=== PATIENT | male | born 1960 | race Caucasian/White ===

== ENCOUNTER 2020-10-15 12:06 | Outpatient (REF) | payer OTHER, SELFPAY ==
[2020-10-15 12:49] LABS: Influenza A PCR NEGATIVE (Negative); Influenza B PCR NEGATIVE (Negative); Resp Syncy Virus RNA Qual PCR NEGATIVE (Negative); SARS COV2 PCR INHOUSE NEGATIVE (Negative)
== END 2020-10-15 12:07 | disposition home or self-care (01) ==
LOC: HO.LNP 12:06
PROVIDERS: Visit Provider Internal Medicine
DX: Z20.822 Contact with and (suspected) exposure to COVID-19 (principal)
CPT/HCPCS: 0241U

== ENCOUNTER 2020-12-19 07:27 | Outpatient (REF) | payer OTHER, SELFPAY ==
[2020-12-19 11:13] LABS: MANUAL DIFF FLAG NO
[2020-12-19 11:41] LABS: Basophils Absolute Auto 0.1 X10*3/uL (0.0-0.2); Basophils Percent Auto 1.5 % (0-2); Eosinophils Absolute Auto 0.3 X10*3/uL (0.0-0.4); Eosinophils Percent Auto 4.9 % (0-4); Hematocrit 48.6 % (42-52); Hemoglobin 16.7 g/dl (14.0-18.0); Imm Gran Abs Auto 0.01 X10*3/uL (0.00-0.03); Imm Gran Pct Auto 0.2 % (0.0-0.4); Lymphocytes Absolute Auto 1.9 X10*3/uL (1.2-4.9); Lymphocytes Percent Auto 31.5 % (20-40); Mean Corpuscular HGB Conc 34.4 g/dl (31.0-36.0); Mean Corpuscular Hemoglobin 32.1 pg (27.0-33.0); Mean Corpuscular Volume 93.3 fL (80-98); Mean Platelet Volume 10.7 fL (9.4-12.4); Monocytes Absolute Auto 0.5 X10*3/uL (0.1-1.2); Monocytes Percent Auto 8.3 % (2-11); Neutrophils Absolute Auto 3.2 X10*3/uL (2.0-8.3); Neutrophils Percent Auto 53.6 % (45-73); Platelet Count 203 X10*3/uL (160-400); Red Blood Count 5.21 X10*6/uL (4.60-5.80); Red Cell Distribution Width 11.8 % (11.0-16.0); White Blood Count 5.9 X10*3/uL (4.8-10.8)
[2020-12-19 13:00] LABS: Alanine Aminotransferase 25 U/L (0-40); Albumin Level 4.3 g/dL (3.5-5.0); Alkaline Phosphatase 46 U/L (39-117); Anion Gap 13 (12-20); Aspartate Amino Transferase 23 U/L (5-37); Bilirubin Total 0.9 mg/dL (0.0-1.0); Blood Urea Nitrogen 21 mg/dL (9-16); Calcium 9.2 mg/dL (8.4-10.2); Carbon Dioxide 26 mmol/L (22-29); Chloride 108 mmol/L (96-108); Cholesterol 196 mg/dL; Estimated Glomerular Filt Rate 57; Glucose Fasting 84 mg/dL (60-99); HDL Cholesterol 45 mg/dL; LDL Cholesterol Calculated 123 mg/dl; Potassium 4.2 mmol/L (3.3-5.1); Sodium 143 mmol/L (135-145); Total Protein 7.3 g/dL (6.5-8.0); Triglycerides 142 mg/dL
[2020-12-19 13:29] LABS: Prostate Specific Antigen 5.96 ng/mL (<0.05-4.0)
== END 2020-12-19 07:28 | disposition home or self-care (01) ==
LOC: HO.HMGCLDS 07:27
PROVIDERS: PCP Internal Medicine; Visit Provider Internal Medicine
DX: Z00.00 Encounter for general adult medical examination without abnormal findings (principal); Z12.5 Encounter for screening for malignant neoplasm of prostate
CPT/HCPCS: 36415; 80053; 80061; 84153; 85025

== ENCOUNTER 2020-12-24 15:55 | Outpatient (REF) | payer OTHER, SELFPAY ==
[2020-12-24 18:48] LABS: Free T4 (Free Thyroxine) 0.82 ng/dL (0.71-1.85); PSA,Total (Free>4and<10) 5.88 ng/mL (0.00-4.00); Thyroid Stimulating Hormone 2.96 uIU/mL (0.32-4.0)
[2020-12-26 11:55] LABS: Free Prostate Spec Ag 0.8 ng/mL; Percent Free Prostate Spec Ag 14 % (calc) (>25); Prostate Specific Ag Total 5.9 ng/mL (< OR = 4.0)
== END 2020-12-24 15:56 | disposition home or self-care (01) ==
LOC: HO.LAB 15:55
PROVIDERS: PCP Internal Medicine; Visit Provider Internal Medicine
DX: R97.20 Elevated prostate specific antigen [PSA] (principal); R94.6 Abnormal results of thyroid function studies; Z12.5 Encounter for screening for malignant neoplasm of prostate
CPT/HCPCS: 36415; 84153; 84154; 84439; 84443

== ENCOUNTER → 2021-01-15 15:19 | Outpatient (BNVA) | payer OTHER, SELFPAY | PROVIDERS: PCP Internal Medicine; Visit Provider Urology ==

== ENCOUNTER 2021-04-15 10:17 | Day surgery (SDC) | payer OTHER, SELFPAY ==
[2021-04-10 14:56] VITALS: BMI 27.8
--- NOTE | 2021-04-12 09:43 | P.CONAN_ITS ---
HPI - Anesthesia Eval Consult details Narrative: 61yo M for Colonoscopy [facility] Active Problems Active Problems: All Active Problems (Updated 04/10/21 @ 14:55 by Samantha Parkinson RN) BPH (benign prostatic hyperplasia) (Acute) Past Medical History Medical History BPH (benign prostatic hyperplasia) Elevated PSA GERD (gastroesophageal reflux disease) Seasonal allergies Surgical History Surgical History History of esophagogastroduodenoscopy (EGD) History of left inguinal hernia repair Hx of colonoscopy Hx of nasal polypectomy Social History Social History Patient Tobacco Use Status: Former Tobacco user Quit Date: 1982 Use of substances other than those prescribed or required for medical reasons: No Are you DNR?: No Advance Directives: No Advance Directives Information Provided: No Meds Allergies Allergy/AdvReac Type Severity Reaction Status Date / Time No Known Allergies Allergy Verified 04/10/21 14:55 Home Medications Medication Instructions Recorded Confirmed Last Taken Type aspirin 81 mg tablet,delayed 81 mg PO DAILY 04/10/21 04/15/21 04/05/21 History release Exam Exam Date and Time: April 12, 2021 0943 Height,Weight and Vital Signs: Height 5 ft 11 in Weight 90.718 kg Assessment and Plan Assessment Anesthesia Assessment: Chart Reviewed
[2021-04-15 11:33] VITALS: BP 166/99; PULSE 84; RESP 18; TEMP 36.8; O2SAT 99; BMI 27.8
[2021-04-15] MEDS: Lactated Ringers 1,000 ML 100 ML IVCONT (11:39)
--- NOTE | 2021-04-15 12:55 | PM.OP ---
Brief Operative Note Date of Service: 04/15/21 Pre-op diagnosis: Screening Post-op diagnosis: other (Colon polyp) Procedure: Colonoscopy to the cecum and TI with biopsy and removal of polyp Surgeon: Neto Fam Anesthesia: MAC Was an Learning Support Specialist used for this Procedure?: No Estimated blood loss (mL): 2.0 Pathology: other (A. Colon polyp at 50cm) Condition: stable Disposition: PACU
[2021-04-15 12:56] VITALS: BP 137/89; PULSE 76; RESP 16; TEMP 36.8; O2SAT 96
[2021-04-15 13:11] VITALS: BP 142/82; PULSE 70; RESP 18; O2SAT 98
--- NOTE | 2021-04-15 19:21 | OP_ITS ---
SURGEON: Neto Fam MD INDICATIONS: The patient presents for evaluation of colorectal cancer screening. Full consent has been obtained from him for this, including risks of bleeding and perforation. PREOPERATIVE DIAGNOSIS: Colorectal cancer screening. POSTOPERATIVE DIAGNOSIS: PROCEDURE PERFORMED: Colonoscopy to cecum and terminal ileum with biopsy and removal of polyp. ESTIMATED BLOOD LOSS: COMPLICATIONS: ANESTHESIA: Monitored anesthesia care. ASSISTANTS: SPECIMENS: POSTOPERATIVE DIAGNOSES: Colorectal cancer screening, small colon polyp, mild diverticulosis, and small internal hemorrhoids. DESCRIPTION OF PROCEDURE: The patient was placed in the left lateral decubitus position. The digital rectal exam revealed no abnormalities. The Olympus video pediatric colonoscope was entered into the rectum and advanced easily to the cecum. Once in the cecum, I did identify normal-appearing cecal pouch with appendiceal orifice and a normal-appearing ileocecal valve. The terminal ileum was cannulated and appeared normal. The scope was withdrawn back in the colon. The entire cecum and ileocecal valve appeared normal. The scope was slowly withdrawn assessing all mucosal surfaces carefully. Preparation was excellent. At 50 cm, was a flat approximately 3 or 4 mm polyp, which was biopsied and completely removed with cold biopsy forceps. I did not visualize any other polyps, colitis, nor angiodysplasia. There was a mild amount of sigmoid diverticulosis. In the rectum, scope was retroflexed visualizing small internal hemorrhoids, but no other pathology. The rectal mucosa appeared normal. Scope was straightened out and withdrawn from the patient. He tolerated the procedure well and was returned to the recovery area in stable condition. IMPRESSION: 1. Small colon polyp, status post biopsy and removal. 2. Mild diverticulosis. 3. Small internal hemorrhoids. PLAN: The results of biopsy will be checked. If this is a tubular adenoma, I would recommend a followup colonoscopy in 5 years. If it is only hyperplastic, I would recommend a followup colonoscopy in 10 years. He will otherwise see me on a p.r.n. basis. MD STUART Cardona/SANJU / [phone]
== END 2021-04-15 13:40 | disposition home or self-care (01) ==
PROVIDERS: PCP Internal Medicine; Visit Provider Internal Medicine
PROC: 0DJD8ZZ Inspection of Lower Intestinal Tract, Via Natural or Artificial Opening Endoscopic (ICD-10-PCS; CPT 45378; principal; 2021-04-15 11:40)
DX: Z12.11 Encounter for screening for malignant neoplasm of colon (principal); K51.40 Inflammatory polyps of colon without complications; K57.30 Diverticulosis of large intestine without perforation or abscess without bleeding; K64.8 Other hemorrhoids; K21.9 Gastro-esophageal reflux disease without esophagitis; N40.0 Benign prostatic hyperplasia without lower urinary tract symptoms; J30.2 Other seasonal allergic rhinitis; Z79.82 Long term (current) use of aspirin; Z79.899 Other long term (current) drug therapy; Z87.891 Personal history of nicotine dependence
CPT/HCPCS: 45380; 88305

== ENCOUNTER 2021-04-23 14:46 | Outpatient (REF) | payer OTHER, SELFPAY ==
[2021-04-23 17:34] LABS: Influenza A PCR NEGATIVE (Negative); Influenza B PCR NEGATIVE (Negative); Resp Syncy Virus RNA Qual PCR NEGATIVE (Negative); SARS COV2 PCR INHOUSE NEGATIVE (Negative)
== END 2021-04-23 14:47 | disposition home or self-care (01) ==
LOC: HO.LNP 14:46
PROVIDERS: Visit Provider Internal Medicine
DX: Z20.822 Contact with and (suspected) exposure to COVID-19 (principal)
CPT/HCPCS: 0241U

== ENCOUNTER 2021-05-10 15:57 | Outpatient (REF) | payer OTHER, SELFPAY ==
--- NOTE | ~2021-05-10 | XR_ITS ---
EXAMINATION: XR SINUSES CLINICAL INFORMATION: Headache. Rule out sinusitis. COMPARISON: None TECHNIQUE: 3 views of the sinuses were obtained. FINDINGS: Paranasal sinuses appear clear without air-fluid levels. No fractures are identified. No radiodense foreign bodies. XR/XR sinus min 3V IMPRESSION: Unremarkable examination.
== END 2021-05-10 15:58 | disposition home or self-care (01) ==
LOC: HO.HMGCX 15:57
PROVIDERS: PCP Internal Medicine; Visit Provider Internal Medicine
DX: R51.9 Headache, unspecified (principal)
CPT/HCPCS: 70220

== ENCOUNTER 2021-05-16 11:56 | Outpatient (REF) | payer OTHER, SELFPAY ==
[2021-05-16 14:51] LABS: PSA,Total (Free>4and<10) 3.79 ng/mL (0.00-4.00)
== END 2021-05-16 11:57 | disposition home or self-care (01) ==
LOC: HO.HMGCLDS 11:56
PROVIDERS: PCP Internal Medicine; Visit Provider Urology
DX: N40.1 Benign prostatic hyperplasia with lower urinary tract symptoms (principal); N13.8 Other obstructive and reflux uropathy; Z12.5 Encounter for screening for malignant neoplasm of prostate
CPT/HCPCS: 36415; 84153

== ENCOUNTER → 2021-05-21 16:22 | Outpatient (BNVA) | payer OTHER, SELFPAY | PROVIDERS: PCP Internal Medicine; Visit Provider Urology ==

== ENCOUNTER 2021-11-18 12:07 | Outpatient (REF) | payer OTHER, SELFPAY ==
[2021-11-18 14:22] LABS: Prostate Specific Antigen 2.74 ng/mL (<0.05-4.0)
== END 2021-11-18 12:08 | disposition home or self-care (01) ==
LOC: HO.HMGCLDS 12:07
PROVIDERS: Visit Provider Urology
DX: Z12.5 Encounter for screening for malignant neoplasm of prostate (principal); R97.20 Elevated prostate specific antigen [PSA]
CPT/HCPCS: 36415; 84153

== ENCOUNTER 2021-11-22 10:27 | Outpatient (REF) | payer OTHER, SELFPAY ==
[2021-11-22 11:27] LABS: MANUAL DIFF FLAG NO
[2021-11-22 11:29] LABS: Basophils Absolute Auto 0.1 X10*3/uL (0.0-0.2); Basophils Percent Auto 0.9 % (0-2); Eosinophils Absolute Auto 0.2 X10*3/uL (0.0-0.4); Hematocrit 48.1 % (42.0-52.0); Hemoglobin 16.6 g/dl (14.0-18.0); Imm Gran Abs Auto 0.02 X10*3/uL (0.00-0.03); Imm Gran Pct Auto 0.3 % (0.0-0.4); Lymphocytes Absolute Auto 1.5 X10*3/uL (1.2-4.9); Lymphocytes Percent Auto 19.4 % (20-40); Mean Corpuscular HGB Conc 34.5 g/dl (31.0-36.0); Mean Corpuscular Hemoglobin 31.7 pg (27.0-33.0); Mean Corpuscular Volume 91.8 fL (80.0-98.0); Mean Platelet Volume 10.3 fL (9.4-12.4); Monocytes Absolute Auto 0.8 X10*3/uL (0.1-1.2); Monocytes Percent Auto 10.5 % (2-11); Neutrophils Absolute Auto 5.1 x10*3/uL (2.0-8.3); Neutrophils Percent Auto 66.9 % (45-73); Platelet Count 194 X10*3/uL (160-400); Red Blood Count 5.24 X10*6/uL (4.60-5.80); Red Cell Distribution Width 11.9 % (11.0-16.0); White Blood Count 7.5 X10*3/uL (4.8-10.8)
[2021-11-22 12:24] LABS: Alanine Aminotransferase 18 U/L (0-40); Albumin Level 4.1 g/dL (3.5-5.0); Alkaline Phosphatase 45 U/L (39-117); Anion Gap 9 (12-20); Aspartate Amino Transferase 18 U/L (5-37); Bilirubin Total 1.1 mg/dL (0.0-1.0); Blood Urea Nitrogen 20 mg/dL (9-16); C Reactive Protein 0.48 mg/dL (< or = 0.50); Calcium 9.7 mg/dL (8.4-10.2); Carbon Dioxide 28 mmol/L (22-29); Chloride 105 mmol/L (96-108); Estimated Glomerular Filt Rate 59; Glucose Random 84 mg/dL (60-115); Sodium 138 mmol/L (135-145); Total Protein 7.1 g/dL (6.5-8.0); Uric Acid 7.2 mg/dL (3.4-7.0)
[2021-11-22 12:25] LABS: Erythrocyte Sedimentation Rate 2 MM/HR (0-15)
== END 2021-11-22 10:28 | disposition home or self-care (01) ==
LOC: HO.HMGCLDS 10:27
PROVIDERS: PCP Internal Medicine; Visit Provider Internal Medicine
DX: N40.0 Benign prostatic hyperplasia without lower urinary tract symptoms (principal); K57.90 Diverticulosis of intestine, part unspecified, without perforation or abscess without bleeding; M79.674 Pain in right toe(s)
CPT/HCPCS: 36415; 80053; 84550; 85025; 85652; 86140

== ENCOUNTER → 2021-11-26 08:26 | Outpatient (BNVA) | payer OTHER, SELFPAY | PROVIDERS: PCP Internal Medicine; Visit Provider Urology | DX: Z13.89 Encounter for screening for other disorder (principal) ==

== ENCOUNTER 2022-07-01 10:01 | Outpatient (REF) | payer OTHER, SELFPAY ==
[2022-07-01 11:34] LABS: Influenza A PCR NEGATIVE (Negative); Influenza B PCR NEGATIVE (Negative); Resp Syncy Virus RNA Qual PCR NEGATIVE (Negative); SARS COV2 PCR INHOUSE NEGATIVE (Negative)
== END 2022-07-01 10:02 | disposition home or self-care (01) ==
LOC: HO.10HDLR 10:01
PROVIDERS: Visit Provider Internal Medicine
DX: Z20.822 Contact with and (suspected) exposure to COVID-19 (principal); R05.9 Cough, unspecified; J02.9 Acute pharyngitis, unspecified
CPT/HCPCS: 0241U

== ENCOUNTER 2022-08-14 14:14 | Outpatient (REF) | payer OTHER, SELFPAY ==
[2022-08-14 15:02] LABS: Influenza A PCR NEGATIVE (Negative); Influenza B PCR NEGATIVE (Negative); Resp Syncy Virus RNA Qual PCR NEGATIVE (Negative); SARS COV2 PCR INHOUSE NEGATIVE (Negative)
== END 2022-08-14 14:15 | disposition home or self-care (01) ==
LOC: HO.LNP 14:14
PROVIDERS: Visit Provider Internal Medicine
DX: Z20.822 Contact with and (suspected) exposure to COVID-19 (principal); J02.9 Acute pharyngitis, unspecified
CPT/HCPCS: 0241U

== ENCOUNTER 2022-11-20 11:58 | Outpatient (REF) | payer OTHER, SELFPAY ==
[2022-11-20 15:03] LABS: Prostate Specific Antigen 8.56 ng/mL (<0.05-4.0)
== END 2022-11-20 11:59 | disposition home or self-care (01) ==
LOC: HO.HMGCLDS 11:58
PROVIDERS: PCP Internal Medicine; Visit Provider Urology
DX: Z12.5 Encounter for screening for malignant neoplasm of prostate (principal); N40.1 Benign prostatic hyperplasia with lower urinary tract symptoms; N13.8 Other obstructive and reflux uropathy
CPT/HCPCS: 36415; 84153

== ENCOUNTER 2022-11-24 06:59 | Outpatient (REF) | payer OTHER, SELFPAY ==
[2022-11-24 11:21] LABS: MANUAL DIFF FLAG NO
[2022-11-24 11:23] LABS: Appearance Urine Clear; Color Urine Yellow; Glucose Urine UA Negative (Negative); Leukocyte Esterase Urine Negative (Negative); Nitrite Urine Negative (Negative); Specific Gravity - Urine 1.015 (1.005-1.025); Urine Blood Negative (Negative); Urine Ketones Negative (Negative); Urine Protein Negative (Neg-Trace)
[2022-11-24 11:48] LABS: Basophils Absolute Auto 0.1 X10*3/uL (0.0-0.2); Basophils Percent Auto 1.6 % (0-2); Eosinophils Absolute Auto 0.2 X10*3/uL (0.0-0.4); Eosinophils Percent Auto 3.9 % (0-4); Hematocrit 50.6 % (42.0-52.0); Hemoglobin 17.4 g/dl (14.0-18.0); Imm Gran Abs Auto 0.02 X10*3/uL (0.00-0.03); Imm Gran Pct Auto 0.3 % (0.0-0.4); Lymphocytes Absolute Auto 1.8 X10*3/uL (1.2-4.9); Lymphocytes Percent Auto 29.6 % (20-40); Mean Corpuscular HGB Conc 34.4 g/dl (31.0-36.0); Mean Corpuscular Hemoglobin 32.2 pg (27.0-33.0); Mean Corpuscular Volume 93.5 fL (80.0-98.0); Mean Platelet Volume 11.1 fL (9.4-12.4); Monocytes Absolute Auto 0.5 X10*3/uL (0.1-1.2); Monocytes Percent Auto 8.6 % (2-11); Neutrophils Absolute Auto 3.5 x10*3/uL (2.0-8.3); Platelet Count 197 X10*3/uL (160-400); Red Blood Count 5.41 X10*6/uL (4.60-5.80); White Blood Count 6.2 X10*3/uL (4.8-10.8)
[2022-11-24 12:04] LABS: Alanine Aminotransferase 23 U/L (0-40); Albumin Level 4.2 g/dL (3.5-5.0); Alkaline Phosphatase 44 U/L (39-117); Anion Gap 12 (12-20); Aspartate Amino Transferase 22 U/L (5-37); Bilirubin Total 1.6 mg/dL (0.0-1.0); Blood Urea Nitrogen 21 mg/dL (9-16); Calcium 9.6 mg/dL (8.4-10.2); Carbon Dioxide 28 mmol/L (22-29); Chloride 107 mmol/L (96-108); Cholesterol 189 mg/dL; Estimated Glomerular Filt Rate 56; Glucose Fasting 98 mg/dL (60-99); HDL Cholesterol 44 mg/dL; LDL Cholesterol Calculated 120 mg/dl; Potassium 4.8 mmol/L (3.3-5.1); Sodium 142 mmol/L (135-145); Total Protein 6.8 g/dL (6.5-8.0); Triglycerides 126 mg/dL
[2022-11-24 12:12] LABS: Prostate Specific Antigen Scr 10.53 ng/mL (<0.05-4.0)
== END 2022-11-24 07:00 | disposition home or self-care (01) ==
LOC: HO.HMGCLDS 06:59
PROVIDERS: PCP Internal Medicine; Visit Provider Internal Medicine
DX: Z00.00 Encounter for general adult medical examination without abnormal findings (principal); Z12.5 Encounter for screening for malignant neoplasm of prostate
CPT/HCPCS: 36415; 80053; 80061; 81003; 84153; 85025

== ENCOUNTER 2022-11-24 23:51 | Emergency (ER) | payer OTHER, SELFPAY ==
[2022-11-25 00:05] VITALS: BP 159/112; PULSE 115; RESP 18; TEMP 36.8; O2SAT 97; BMI 25.7
[2022-11-25 01:01] LABS: Appearance Urine Clear; Color Urine Yellow; Glucose Urine UA Negative (Negative); Leukocyte Esterase Urine Negative (Negative); Nitrite Urine Negative (Negative); PH 5.5 (5.0-9.0); Specific Gravity - Urine <= 1.005 (1.005-1.025); UMIC TRIGGER UACC YES; Urine Blood Large (3+) (Negative); Urine Ketones Negative (Negative); Urine Protein Negative (Neg-Trace)
--- NOTE | 2022-11-25 01:03 | PC.NURSE ---
pt a&o, no sob or chest pain, pt reports unable to void, bladder scan was greater than 600, bustillo placed and draining clear yellow urine with a few small blood clots.
[2022-11-25 01:06] LABS: Bacteria Urine None Seen (None Seen); Hyaline Casts Urine 0-2 /LPF (0-2); Squamous Epithelial Cell Urine 0-2 /HPF (0-2); WBC Urine 0-5 /HPF (0-5)
[2022-11-25 01:15] LABS: Hematocrit 46.4 % (42.0-52.0); Hemoglobin 16.4 g/dl (14.0-18.0); Mean Corpuscular HGB Conc 35.3 g/dl (31.0-36.0); Mean Corpuscular Hemoglobin 31.5 pg (27.0-33.0); Mean Corpuscular Volume 89.1 fL (80.0-98.0); Mean Platelet Volume 10.1 fL (9.4-12.4); Platelet Count 186 X10*3/uL (160-400); Red Blood Count 5.21 X10*6/uL (4.60-5.80); Red Cell Distribution Width 11.9 % (11.0-16.0); White Blood Count 5.4 X10*3/uL (4.8-10.8)
[2022-11-25 01:31] LABS: Alanine Aminotransferase 22 U/L (0-40); Albumin Level 4.1 g/dL (3.5-5.0); Alkaline Phosphatase 44 U/L (39-117); Anion Gap 17 (12-20); Aspartate Amino Transferase 22 U/L (5-37); Bilirubin Total 0.8 mg/dL (0.0-1.0); Blood Urea Nitrogen 18 mg/dL (9-16); Carbon Dioxide 21 mmol/L (22-29); Chloride 108 mmol/L (96-108); Creatinine Clr Calc Pharmacy 66.9; Estimated Glomerular Filt Rate 59; Glucose Random 103 mg/dL (60-115); Lipase 59 U/L (8-78); Potassium 4.1 mmol/L (3.3-5.1); Sodium 142 mmol/L (135-145); Total Protein 6.8 g/dL (6.5-8.0)
--- NOTE | 2022-11-25 01:32 | PC.NURSE ---
pt had 1,000ml of urine out put
[2022-11-25 01:42] VITALS: BP 136/80; PULSE 77; RESP 19; TEMP 36.6; O2SAT 97
--- NOTE | 2022-11-25 03:34 | PC.NURSE ---
pt resting in bed no sign of distress. Waiting to be seen, provider is bray.
[2022-11-25 03:39] VITALS: BP 122/74; PULSE 74; RESP 17; TEMP 36.8; O2SAT 97
--- NOTE | 2022-11-25 03:46 | ED.MALEGU ---
HPI - Male Genitourinary General Chief complaint: Urogenital-Male Stated complaint: ? uti abd pain Time Seen by Provider: 11/25/22 03:46 Source: patient Mode of arrival: ambulatory Limitations: no limitations History of Present Illness HPI Narrative: 5 days ago patient noticed difficulty urination with burning. denies abdominal distention. Tonight he could not urinate. Patient took a cipro today. Patient has been taking claritin for nasal congestion. Onset (ago): day(s) Duration: constant Severity: moderate Related Data Home Medications Medication Instructions Recorded Confirmed aspirin 81 mg tablet,delayed 81 mg PO DAILY 04/10/21 04/15/21 release Previous Rx's Medication Instructions Recorded finasteride 5 mg tablet 5 mg PO DAILY 90 days #90 tabs 05/21/22 Allergies Allergy/AdvReac Type Severity Reaction Status Date / Time No Known Allergies Allergy Verified 11/26/21 08:27 Review of Systems Review of Systems: Yes all other systems are reviewed and are negative Genitourinary: Comments: dysuria, unable to urinate Neurologic: Denies Sensory deficit (Neuro) [facility] Past Medical History Medical History BPH (benign prostatic hyperplasia) Elevated PSA GERD (gastroesophageal reflux disease) Seasonal allergies Surgical History History of esophagogastroduodenoscopy (EGD) History of left inguinal hernia repair Hx of colonoscopy Hx of nasal polypectomy Social History Social History Patient Tobacco Use Status: Former Tobacco user Quit Date: 1982 Use of substances other than those prescribed or required for medical reasons: No Advance Directives: No Advance Directives Information Provided: Yes Physical Exam Vital Signs: Vital Signs: Last Vital Signs Temp 98.3 F 11/25/22 03:39 Pulse 74 11/25/22 03:39 Resp 17 11/25/22 03:39 BP 122/74 11/25/22 03:39 Pulse Ox 97 11/25/22 03:39 O2 Del Method Room Air 11/25/22 03:39 BMI result Body Mass Index 25.7 Const: General: healthy appearing Nutritional Appearance: average body habitus Orientation/consciousness: oriented to person and patient oriented x3 Limitations: no limitations HEENT: Head: Yes normal to inspection Ears: external ears normal General nose exam: Normal external nose present Mouth: Normal oral and palatal mucosa present and oropharynx normal Throat: Yes posterior oropharynx normal Eyes: General: appearance normal, both eyes and all related structures Neck: Other: supple Neck: Yes normal visual inspection Chest: Chest palpation & inspection: normal inspection of the chest Resp: Auscultation: clear to auscultation bilaterally Cardio: Jugular venous distension: no JVD Rate: regular rate Rhythm: regular rhythm Heart sounds: S1 normal heart sound present and S2 normal heart sound present GI: Inspection: Yes normal to inspection Palpation (GI): Soft to palpation, nontender and No hepatosplenomegaly present Auscultation: normal bowel sounds : General: Yes no CVA tenderness Back/Spine/Pelvis: Back: no CVA tenderness Skin: General skin exam: no rashes or lesions noted Neuro: General: oriented to person and patient oriented x3 Cranial nerves: Yes CN's II-XII intact bilaterally Motor exam (neuro): 5/5 motor strength present throughout Sensory Exam: No Sensory deficit (Neuro) Extrem: General: Yes normal to inspection Psych: Appearance: grossly normal Course Reevaluation(s) Reevaluation #1: Patient put out 1400cc, no evidence of UTI or renal failure. Will have patient continue the cipro as he now has a bustillo in. In addition will have the patient take flonase instead of claritin Time: 03:58 Medical Decision Making Differential Diagnosis Differential Diagnoses: The differential diagnosis associated with the presentation includes (urinary obstruction, UTI, renal failure) Lab Data MDM Lab Attestation statement: I reviewed the patient's lab results. (BUN and creatinine at baseline) 11/25/22 01:05 11/25/22 01:05 Labs: Lab Results 11/25/22 11/25/22 11/25/22 Range/Units 00:54 01:05 01:05 WBC 5.4 (4.8-10.8) X10*3/uL RBC 5.21 (4.60-5.80) X10*6/uL Hgb 16.4 (14.0-18.0) g/dl Hct 46.4 (42.0-52.0) % MCV 89.1 (80.0-98.0) fL MCH 31.5 (27.0-33.0) pg MCHC 35.3 (31.0-36.0) g/dl RDW 11.9 (11.0-16.0) % Plt Count 186 (160-400) X10*3/uL MPV 10.1 (9.4-12.4) fL Absolute Nucleated RBC 0.000 (0.0-0.012) X10*3/uL Nucleated RBC % (auto) 0.0 (0.0-0.2) /100WBC Sodium 142 (135-145) mmol/L Potassium 4.1 (3.3-5.1) mmol/L Chloride 108 (96-108) mmol/L Carbon Dioxide 21 L (22-29) mmol/L Anion Gap 17 (12-20) BUN 18 H (9-16) mg/dL Creatinine 1.24 (0.5-1.4) mg/dL Estim Creat Clear Calc 66.9 Estimated GFR 59 Random Glucose 103 (60-115) mg/dL Calcium 9.0 D (8.4-10.2) mg/dL Total Bilirubin 0.8 (0.0-1.0) mg/dL AST 22 (5-37) U/L ALT 22 (0-40) U/L Alkaline Phosphatase 44 (39-117) U/L Total Protein 6.8 (6.5-8.0) g/dL Albumin 4.1 (3.5-5.0) g/dL Lipase 59 (8-78) U/L Urine Color Yellow Urine Appearance Clear Urine pH 5.5 (5.0-9.0) Ur Specific [place] <= 1.005 (1.005-1.025) Urine Protein Negative (Neg-Trace) mg/dL Urine Glucose (UA) Negative (Negative) mg/dL Urine Ketones Negative (Negative) mg/dL Urine Blood Large (3+) H (Negative) Urine Nitrite Negative (Negative) Ur Leukocyte Esterase Negative (Negative) Urine RBC 11-20 H (0-2) /HPF Urine WBC 0-5 (0-5) /HPF Ur Squamous Epith Cells 0-2 (0-2) /HPF Urine Bacteria None Seen (None Seen) Hyaline Casts 0-2 (0-2) /LPF Independent Historian Clinical information obtained from an independent historian. History obtained from or confirmed by: Spouse Chronic Conditions Patient?s care impacted by: Other (benign prostate hypertrophy) Discharge Plan Discharge Clinical Impression: Acute urinary obstruction Patient Disposition: Home, Self-Care Instructions: Bustillo Catheter Placement and Care (ED) Prescriptions: No Action finasteride 5 mg tablet 5 mg PO DAILY 90 Days Qty: 90 1RF aspirin [Aspir-81] 81 mg Tablet,Delayed Release (Dr/Ec) 81 mg PO DAILY Referrals: Doug Macias MD [Physician] - 5 days
--- NOTE | 2022-11-25 03:53 | PC.NURSE ---
provider into assess pt and discuss plan of care.
--- NOTE | 2022-11-25 04:24 | PC.NURSE ---
Reviewed discharge instructions with pt, pt verbalized understanding, Education on bustillo bag.Will continue to monitor.
== END 2022-11-25 04:39 | disposition home or self-care (01) ==
PROVIDERS: Emergency Provider Emergency Medicine; PCP Internal Medicine
DX: N13.9 Obstructive and reflux uropathy, unspecified (principal); R33.9 Retention of urine, unspecified; Z79.899 Other long term (current) drug therapy
CPT/HCPCS: 36415; 51702; 51798; 80053; 81001; 81003; 83690; 85027; 99284; 99285

== ENCOUNTER → 2022-12-17 13:53 | Outpatient (BNVA) | payer OTHER, SELFPAY | PROVIDERS: PCP Internal Medicine; Visit Provider Urology | DX: N40.0 Benign prostatic hyperplasia without lower urinary tract symptoms (principal); R97.20 Elevated prostate specific antigen [PSA]; R33.9 Retention of urine, unspecified; Z79.82 Long term (current) use of aspirin; Z79.899 Other long term (current) drug therapy | CPT/HCPCS: 52000 ==

== ENCOUNTER 2023-02-21 07:03 | Outpatient (REF) | payer OTHER, SELFPAY ==
[2023-02-21 12:14] LABS: Prostate Specific Antigen 4.47 ng/mL (<0.05-4.0)
[2023-02-21 12:16] LABS: PSA,Total (Free>4and<10) 4.28 ng/mL (0.00-4.00)
[2023-02-25 10:59] LABS: Free Prostate Spec Ag 0.5 ng/mL; Percent Free Prostate Spec Ag 12 % (calc) (>25); Prostate Specific Ag Total 4.3 ng/mL (< OR = 4.0)
== END 2023-02-21 07:04 | disposition home or self-care (01) ==
LOC: HO.HMGCLDS 07:03
PROVIDERS: PCP Internal Medicine; Visit Provider Internal Medicine
DX: R97.20 Elevated prostate specific antigen [PSA] (principal); Z12.5 Encounter for screening for malignant neoplasm of prostate
CPT/HCPCS: 36415; 84153; 84154

== ENCOUNTER 2023-02-24 10:41 | Outpatient (AMB) | payer OTHER, SELFPAY ==
--- NOTE | 2023-02-24 10:42 | MHC.OFFVIS ---
Intake Intake Visit Reasons: H&P (greenlight) Intake Note: Patient is present for Telephone Urology Med: Finasteride, Terazosin Antibiotic Allergy: None Blood Thinner: Aspirin (Will stop prior of surgery) Allergies No Known Allergies Allergy (Verified 02/24/23 10:44) HPI HPI Comments History of Present Illness Details Kameron is a very pleasant male. He is a patient of Dr. Joyce. He is seen for the following urologic condition - elevated PSA - episode of urinary retention Telemedicine Evaluation 15 min Consultation [employer] Video attempted Discussed GreenLight laser surgery Questions answered regarding anesthetic, catheter usage, postprocedure medications Elevated PSA/LUTS Episode of urinary retention October 2022 Found to have elevated PSA on regular follow-up with PCP Initial therapy trial of finasteride Improvement of frequency and weakness of stream with finasteride Showed significant decline in PSA level PSA - 12/21 5.9, 05/23 3.8, 11/22 2.7, 11/23 10.53 Plan to continue with interval surveillance - GreenLight laser prostatectomy [facility] Medical History BPH (benign prostatic hyperplasia) Elevated PSA GERD (gastroesophageal reflux disease) Seasonal allergies Surgical History History of esophagogastroduodenoscopy (EGD) History of left inguinal hernia repair Hx of colonoscopy Hx of nasal polypectomy Social History Patient Tobacco Use Status: Former Tobacco user Quit Date: 1982 Review of Systems Const All systems reviewed & are unremarkable except as noted in HPI and below Reports no additional complaints Resp Reports no additional complaints GI Reports no additional complaints Reports as per HPI Musc Reports no additional complaints Physical Exam Telemedicine evaluation Appropriate responses Regular breathing rate and rhythm HEENT Head: Yes normal to inspection Ears: hearing grossly normal bilaterally Eyes General: appearance normal, both eyes and all related structures Neck Neck: Yes normal visual inspection Chest Chest palpation & inspection: normal inspection of the chest Resp Effort & Inspection: normal respiratory effort and able to speak in complete sentences Assessment & Plan Assessment & Plan (1) Elevated PSA: Code(s): R97.20 - Elevated prostate specific antigen [PSA] (2) BPH (benign prostatic hyperplasia): Code(s): N40.0 - Benign prostatic hyperplasia without lower urinary tract symptoms Plan Planned upcoming GreenLight laser prostatectomy Patient Instructions: Imaging studies, laboratory and physical exam results were discussed and reviewed in detail. No major barriers to patient understanding were identified. An opportunity to ask questions regarding the treatment plan was provided. All questions were answered. The patient expressed understanding and agreement with the above treatment plan. The patient is aware they should contact our office by phone for worsening of their current condition or the appearance of new urologic symptoms. Compliance is encouraged with any medications and followup testing that is ordered. It is a privilege to participate in the urologic care of your patient. If you have any questions or concerns regarding treatment for the above conditions, or other urologic issues, please do not hesitate to contact me. The office telephone contact is [phone]. This note is constructed using voice recognition software. While every effort has been made to ensure accuracy automatic thread winder errors may have been included. Yours sincerely, Dr Doug Macias MD, [facility] - Urology Providers of Expert, Compassionate Care for the Genitourinary System Telehealth Telehealth Location of provider rendering services: practice address Location of patient: address on file Patient Identification confirmed using: Name, : Yes Telehealth method: voice only Patient verbally consented to treatment: Yes Patient verbally consented to billing insurance company: Yes Patient informed of any privacy concerns related to visit: Yes Coding Level of Care Code Tele Est Pt Level 3 (51933) Diagnoses Elevated PSA R97.20 BPH (benign prostatic hyperplasia) N40.0
== END 2023-02-24 13:19 | disposition home or self-care (01) ==
LOC: HO.HUSH 10:41
PROVIDERS: PCP Internal Medicine; Visit Provider Urology
DX: R97.20 Elevated prostate specific antigen [PSA] (principal); N40.0 Benign prostatic hyperplasia without lower urinary tract symptoms
CPT/HCPCS: 99213

== ENCOUNTER → 2023-02-24 10:41 | Outpatient (BNVA) | payer OTHER, SELFPAY | PROVIDERS: PCP Internal Medicine; Visit Provider Urology ==

== ENCOUNTER 2023-03-07 07:40 | Outpatient (REF) | payer OTHER, SELFPAY ==
[2023-03-07 11:13] LABS: MANUAL DIFF FLAG NO
[2023-03-07 11:15] LABS: Basophils Absolute Auto 0.1 X10*3/uL (0.0-0.2); Basophils Percent Auto 1.2 % (0-2); Eosinophils Absolute Auto 0.3 X10*3/uL (0.0-0.4); Eosinophils Percent Auto 5.3 % (0-4); Hematocrit 49.9 % (42.0-52.0); Hemoglobin 16.9 g/dl (14.0-18.0); Imm Gran Abs Auto 0.01 X10*3/uL (0.00-0.03); Imm Gran Pct Auto 0.2 % (0.0-0.4); Lymphocytes Absolute Auto 1.8 X10*3/uL (1.2-4.9); Lymphocytes Percent Auto 31.9 % (20-40); Mean Corpuscular HGB Conc 33.9 g/dl (31.0-36.0); Mean Corpuscular Hemoglobin 31.6 pg (27.0-33.0); Mean Corpuscular Volume 93.4 fL (80.0-98.0); Mean Platelet Volume 11.3 fL (9.4-12.4); Monocytes Absolute Auto 0.5 X10*3/uL (0.1-1.2); Monocytes Percent Auto 8.9 % (2-11); Neutrophils Percent Auto 52.5 % (45-73); Platelet Count 224 X10*3/uL (160-400); Red Blood Count 5.34 X10*6/uL (4.60-5.80); Red Cell Distribution Width 13.1 % (11.0-16.0); White Blood Count 5.7 X10*3/uL (4.8-10.8)
[2023-03-07 11:51] LABS: Alanine Aminotransferase 20 U/L (0-40); Alkaline Phosphatase 47 U/L (39-117); Anion Gap 14 (12-20); Aspartate Amino Transferase 20 U/L (5-37); Bilirubin Total 0.9 mg/dL (0.0-1.0); Blood Urea Nitrogen 15 mg/dL (9-16); Calcium 9.6 mg/dL (8.4-10.2); Carbon Dioxide 24 mmol/L (22-29); Chloride 106 mmol/L (96-108); Estimated Glomerular Filt Rate > 60; Glucose Random 87 mg/dL (60-115); Potassium 4.2 mmol/L (3.3-5.1); Sodium 140 mmol/L (135-145); Total Protein 7.1 g/dL (6.5-8.0)
== END 2023-03-07 07:41 | disposition home or self-care (01) ==
LOC: HO.HMGCLDS 07:40
PROVIDERS: PCP Internal Medicine; Visit Provider Internal Medicine
DX: Z01.818 Encounter for other preprocedural examination (principal)
CPT/HCPCS: 36415; 80053; 85025

== ENCOUNTER 2023-03-09 07:21 | Day surgery (SDC) | payer OTHER, SELFPAY ==
[2023-03-04 12:07] VITALS: BMI 28.6
[2023-03-09] VITALS (9 sets, daily range): BP systolic 169–190; BP diastolic 93–102; PULSE 60–75; RESP 12–18; TEMP 36.1–36.7; O2SAT 96–98
--- NOTE | 2023-03-09 08:46 | P.CONAN_ITS ---
[facility] Active Problems Active Problems: All Active Problems (Updated 12/17/22 @ 14:47 by Doug Macias MD) BPH (benign prostatic hyperplasia) (Acute) Urinary retention with incomplete bladder emptying (Acute) Elevated PSA (Acute) Past Medical History Medical History BPH (benign prostatic hyperplasia) Elevated PSA GERD (gastroesophageal reflux disease) Seasonal allergies Family History Family history of problems with anesthesia: No Surgical History Surgical History History of esophagogastroduodenoscopy (EGD) History of left inguinal hernia repair Hx of colonoscopy Hx of nasal polypectomy History of Problems with Anesthesia: No Social History Social History Are you a primary reservoir caretaker to a significant other at home: No Patient Tobacco Use Status: Former Tobacco user Quit Date: 1982 Have you been hit, kicked, punched, or otherwise hurt by someone within the past year? If so, by whom?: No Are you DNR?: No Advance Directives: No Advance Directives Information Provided: Yes Recently lost weight without trying: No Eating poorly because of decreased appetite: No Nutrition Risks: No Nutritional Risk Meds Allergies Allergy/AdvReac Type Severity Reaction Status Date / Time No Known Allergies Allergy Verified 02/24/23 10:44 Active Medications: Current Medications Albuterol Sulfate (Albuterol Sulfate (0.083%) 2.5 Mg/3 Ml Vial.Neb) 2.5 mg INHALE ONCE PRN PRN Reason: Shortness of Breath/Wheezing Lactated Ringer's (Lr) 1,000 mls @ 100 mls/hr IVCONT .Q10H FRED Levofloxacin (Levaquin) 500 mg in 100 mls @ 100 mls/hr IV PREOP ONE Stop: 03/09/23 08:52 Home Medications Medication Instructions Recorded Confirmed Last Taken Type aspirin 81 mg tablet,delayed 81 mg PO DAILY 04/10/21 03/04/23 04/05/21 History release albuterol sulfate 90 mcg/actuation 90 mcg inhalation Q4H PRN Allergy 11/25/22 03/04/23 Unknown History aerosol inhaler Symptoms ciprofloxacin HCl 500 mg tablet 500 mg PO BID 11/25/22 11/25/22 Unknown History Exam Exam Date and Time: March 09, 2023 0846 Height,Weight and Vital Signs: Height 5 ft 11 in Weight 92.986 kg Last Vital Signs Temp 98.0 F 03/09/23 08:14 Pulse 75 03/09/23 08:14 Resp 18 03/09/23 08:14 BP 178/93 H 03/09/23 08:14 Pulse Ox 98 03/09/23 08:14 O2 Del Method Room Air 03/09/23 08:14 Airway Mallampati Class: II TM Dist: >3cm Neck ROM: Full Assessment and Plan Assessment Anesthesia Assessment: Anesthesia Plan Discussed and Chart Reviewed Final Anesthetic Review Family History of Problems with Anesthesia: No History of Problems with Anesthesia: No NPO: Yes ASA Class: II Final Preanesthetic Review: No Changes in Pt Med Stat, Meds/Allgs Chart Reviewed, Consent Obtained/Reviewed and Anes Risks/Benef Reviewed Patient Risk: Low Procedure Risk: Intermediate Anesthetic Plan Anesthetic Plan: GA Disposition: Standard PACU
--- NOTE | 2023-03-09 09:13 | MHC.SHP ---
Pre-Procedural Eval Section A Date of Service: 03/09/23 The patient is an INPATIENT: No Changes since office visit: No Cold of Flu in the past 2 weeks, No New Medical Problems, No Changes in Medication and No Patient answered all questions Section B Chief Complaint: Benign prostatic hyperplasia without lower urinary Relevant Social History: None Present Medications: None Medical History: Significant History History of Previous Operations: Relevant previous surgery/procedure and date(s) Allergies: Allergies Allergy/AdvReac Type Severity Reaction Status Date / Time No Known Allergies Allergy Verified 02/24/23 10:44 Review of Systems Sugical H&P ROS: Negative: Constitution, Cardiovascular, Respiratory, Neurological, Psychiatric, Hem-Onc, Allergic/Immunologic, Gastrointestinal, Genitourinary, Musculoskeletal, Integumentary, Endocrine and Eyes/Ears/Nose/Throat Exam Surgical H&P Exam: Normal: HEENT, Normal: Heart, Normal: Lungs, Normal: Extremities, Normal: Abdomen, Normal: Skin and Normal: Neurological Plan Diagnosis/Plan: Unchanged (greenlight laser) I have reviewed the history and physical and performed a pertinent physical examination on my patient. No changes have occurred unless specified. Time Spent With Patient Time: Total time managing care of this patient today ____ minutes.
--- NOTE | 2023-03-09 10:26 | W.PM.OPN ---
Operative Note Operative Note Date of Service: 03/09/23 Narrative: PreOperative Diagnosis: Bladder outlet obstruction Post Operative Diagnosis: Bladder outlet obstruction Procedure: GreenLight Laser Enucleation of the prostate Surgeon: Dr Doug Macias Anesthesia: General Indications for procedure: prior episode of retention History of bladder outlet obstruction. Treated with alpha-robyn and other medications. Still with symptoms. On cystoscopy in office has trilobar prostate. Recommendation for prostate procedure with laser enucleation of prostate. Risks and benefits have been discussed. Focus was placed on development of retrograde ejaculation which is a normal part of this procedure. Procedure: After informed consent was verified the patient was brought to the operating room and placed in a supine position. Anesthesia was administered per protocol. Patient was placed in modified dorsal lithotomy position and prepped and draped in a sterile fashion. Safety pause time-out was confirmed. Antibiotics have been given. A Twenty-four Greenlandic laser cystoscope was inserted per urethra. No abnormalities were found of the anterior and bulbar urethra. The bladder was examined and both ureteric orifices were seen in their normal positions away from the area of interest. Using a GreenLight laser with settings of 80 w incisions were made at the 5 and 7 o'clock position. The incisions were taken down from the bladder neck down to the level of the veru. These were gradually deepened in order to define the lateral aspects of the median lobe area. Once clearly defined they will also extended in the lateral directions in order to create a deep groove. The median lobe was then ablated and enucleated tissue released into the bladder with the laser power increased to 120 W. Once the median lobe area had been cleared attention was directed to the lateral lobes. Starting with the patient's left lateral lobe. First the 05:00 o'clock groove was further developed. This was moved in the lateral direction to undermine the tissue on the lateral side running from the bladder neck to the prostate apex. Focus was then placed on the laser at the 1 o'clock position to developing a secondary groove down to the level of bladder fibers. The creation of a second deep groove defined a segment of intervening tissue similar to a slice of orange. At the apex of the prostate the 2 grooves were linked the us releasing the intervening tissue. This tissue was then removed with a combination of enucleation and ablation working from the apex toward the bladder neck. A similar procedure was repeated on the patient's right-hand side. The only differences being the position of the lateral groove at he 7 'oclock positioin and the secondary groove at the 11 o'clock position, Otherwise the procedure was developed in a mirror fashion. After the majority of tissue had been debulked remnant tissue was ablated with the side fire laser and the curve of the prostate followed up each side wall clearly defining the anterior remnant strip that remained between the 11 and 1 o'clock positions. In this case the anterior tissue protruded into the prostatic fossa and was partially ablated with the laser When this was had been completed debris and pieces of prostate were removed from the bladder with irrigation. Both ureteric orifices were reviewed again in shown to be patent in away from any areas of energy damage. The apical area was reviewed in any stray ooze was controlled. A 22 Greenlandic 30 cc balloon Price catheter was placed over a stylet into the bladder. Clear efflux was obtained upopn irrigation with a Danielito piston syringe. 30 cc was placed in the balloon and gentle traction was placed. A snap was used to hold tension on the catheter to control bleeding during patient moved and transported. A drainage bag was placed. Once transportation is complete to the PACU the snap will be removed. The patient tolerated the procedure well, he was extubated in the operating and transferred in a stable condition to the recovery area. Total Power 199 kW Lasing time 28:15 Pathology: Prostate tissue Drains: Price catheter
[2023-03-09] MEDS: Acetaminophen 1,000 MG/100 ML PIGGYBACK 400 MG IV (11:25)
== END 2023-03-09 12:20 | disposition home or self-care (01) ==
PROVIDERS: PCP Internal Medicine; Visit Provider Urology
PROC: (CPT 52648; principal; 2023-03-09 09:10)
DX: N40.1 Benign prostatic hyperplasia with lower urinary tract symptoms (principal); N13.8 Other obstructive and reflux uropathy; J30.2 Other seasonal allergic rhinitis; Z79.82 Long term (current) use of aspirin; Z79.899 Other long term (current) drug therapy; Z87.891 Personal history of nicotine dependence
CPT/HCPCS: 52649; 88305; J0131; J1100; J1956; J2250; J2405; J3010

== ENCOUNTER → 2023-03-09 07:21 | Outpatient (BNV) | payer OTHER, SELFPAY | PROVIDERS: PCP Internal Medicine; Visit Provider Urology | DX: N32.0 Bladder-neck obstruction (principal) | CPT/HCPCS: 52649 ==

== ENCOUNTER 2023-03-12 09:25 | Outpatient (AMB) | payer OTHER, SELFPAY ==
--- NOTE | 2023-03-12 09:28 | AM.OFFVISNUR ---
Intake Intake Visit Reasons: voiding trial (greenlight) Allergies No Known Allergies Allergy (Verified 02/24/23 10:44) Office Procedures Bladder/Catheter Procedure Details: pt presents to office for voiding trial s/p greenlight procedure on 03/09. 120 mls sterile water instilled into bladder, 22 fr cath 30 ml balloon removed. pt able ot urinate into urinal 140 mls pink tinged urine. bladder scanned for 0 mls. pt to call office if having difficulty and/or has not voided by 1400. 6 wk post op f/u with Dr Macias. 28255-Vimbscmrza of Bladder Procedure code (CPT) selection complete Post Void Residual Post Residual Void Post Void Residual (PVR): 0 [id number]-[id number] Void Residual by ultrasound Coding Diagnoses CPT Codes Bladder/Catheter Procedure - CPT: 38563-Fsezdurkmz of Bladder ([id number]) Post Residual Void - PVR CPT Code: 08491-Pyco Void Residual by ultrasound ([id number]) Assessment & Plan Assessment & Plan Orders: Orders AMB Bladder/Catheter Procedure Today N40.0 - Benign prostatic hyperplasia without lower urinary tract symptoms, R33.9 - Retention of urine, unspecified AMB Post Void Residual by ultrasound Today N40.0 - Benign prostatic hyperplasia without lower urinary tract symptoms, R33.9 - Retention of urine, unspecified
== END 2023-03-12 09:53 | disposition home or self-care (01) ==
PROVIDERS: Visit Provider Urology
DX: N40.0 Benign prostatic hyperplasia without lower urinary tract symptoms (principal)

== ENCOUNTER → 2023-03-12 09:25 | Outpatient (BNVA) | payer OTHER, SELFPAY | PROVIDERS: Visit Provider Urology | DX: N40.0 Benign prostatic hyperplasia without lower urinary tract symptoms (principal); R33.9 Retention of urine, unspecified | CPT/HCPCS: 51700; 51798 ==

== ENCOUNTER 2023-03-27 10:04 | Outpatient (REF) | payer OTHER, SELFPAY ==
[2023-03-27 13:33] LABS: MANUAL DIFF FLAG NO
[2023-03-27 13:39] LABS: Basophils Absolute Auto 0.1 X10*3/uL (0.0-0.2); Basophils Percent Auto 1.1 % (0-2); Eosinophils Absolute Auto 0.3 X10*3/uL (0.0-0.4); Eosinophils Percent Auto 3.8 % (0-4); Hematocrit 52.3 % (42.0-52.0); Hemoglobin 17.9 g/dl (14.0-18.0); Imm Gran Abs Auto 0.03 X10*3/uL (0.00-0.03); Imm Gran Pct Auto 0.4 % (0.0-0.4); Lymphocytes Absolute Auto 1.9 X10*3/uL (1.2-4.9); Lymphocytes Percent Auto 25.5 % (20-40); Mean Corpuscular HGB Conc 34.2 g/dl (31.0-36.0); Mean Corpuscular Hemoglobin 31.7 pg (27.0-33.0); Mean Corpuscular Volume 92.7 fL (80.0-98.0); Mean Platelet Volume 10.9 fL (9.4-12.4); Monocytes Absolute Auto 0.7 X10*3/uL (0.1-1.2); Monocytes Percent Auto 9.4 % (2-11); Neutrophils Absolute Auto 4.4 x10*3/uL (2.0-8.3); Neutrophils Percent Auto 59.8 % (45-73); Platelet Count 271 X10*3/uL (160-400); Red Blood Count 5.64 X10*6/uL (4.60-5.80); Red Cell Distribution Width 12.5 % (11.0-16.0); White Blood Count 7.3 X10*3/uL (4.8-10.8)
[2023-03-27 13:47] LABS: Appearance Urine Turbid; Color Urine BROWN; Glucose Urine UA 100 mg/dL (Negative); Leukocyte Esterase Urine Moderate (2+) (Negative); Nitrite Urine Positive (Negative); Specific Gravity - Urine 1.025 (1.005-1.025); UMIC TRIGGER UACC YES; Urine Blood Large (3+) (Negative); Urine Ketones Trace mg/dL (Negative); Urine Protein 300 (3+) mg/dL (Neg-Trace)
[2023-03-27 14:07] LABS: Bacteria Urine None Seen (None Seen); Hyaline Casts Urine 0-2 /LPF (0-2); RBC Urine >20 /HPF (0-2); Squamous Epithelial Cell Urine 0-2 /HPF (0-2); UACC Culture Trigger YES; WBC Urine >50 /HPF (0-5)
[2023-03-27 14:19] LABS: Anion Gap 14 (12-20); Blood Urea Nitrogen 21 mg/dL (9-16); Calcium 10.6 mg/dL (8.4-10.2); Carbon Dioxide 27 mmol/L (22-29); Chloride 106 mmol/L (96-108); Estimated Glomerular Filt Rate 59; Glucose Random 92 mg/dL (60-115); Potassium 4.6 mmol/L (3.3-5.1); Sodium 142 mmol/L (135-145)
== END 2023-03-27 10:05 | disposition home or self-care (01) ==
LOC: HO.HMGCLDS 10:04
PROVIDERS: PCP Internal Medicine; Visit Provider Internal Medicine
DX: R30.0 Dysuria (principal); Z98.890 Other specified postprocedural states
CPT/HCPCS: 36415; 80048; 81001; 85025; 87086

== ENCOUNTER 2023-04-23 11:21 | Outpatient (AMB) | payer OTHER, SELFPAY ==
--- NOTE | 2023-04-23 11:31 | MHC.OFFVIS ---
Intake Intake Visit Reasons: 6 wk post greenlight Intake Note: Patient is present for Follow Up 6 Week Post Op Greenlight Urology Med: Finasteride, Terazosin Antibiotic Allergy:None Blood Thinner: Aspirin Pharmacy: [facility] PVR: 0 Allergies No Known Allergies Allergy (Verified 04/23/23 11:36) HPI HPI Comments History of Present Illness Details Kameron is a very pleasant male. He is a patient of Dr. Joyce. He is seen for the following urologic condition - elevated PSA - episode of urinary retention Pathology chronic inflammation. Copy provided Happy with current result Nocturia x3 but improving Burning is improving Repeat PSA in 6 months Elevated PSA/LUTS Episode of urinary retention October 2022 Found to have elevated PSA on regular follow-up with PCP Initial therapy trial of finasteride - Improvement of frequency and weakness of stream with finasteride Intervention - 03/25 GreenLight laser prostatectomy - pathology chronic inflammation PSA - 12/21 5.9, 05/23 3.8, 11/22 2.7, 11/23 10.53, 02/21 4.3 12% Plan to continue with interval surveillance PFSH Medical History Seasonal allergies BPH (benign prostatic hyperplasia) Elevated PSA GERD (gastroesophageal reflux disease) Surgical History Hx of nasal polypectomy History of left inguinal hernia repair Hx of colonoscopy History of esophagogastroduodenoscopy (EGD) Social History Are you a primary critical care cns to a significant other at home: No Patient Tobacco Use Status: Former Tobacco user Quit Date: 1982 Review of Systems Const Denies chills and Denies fever(s) Card Reports no additional complaints and Denies syncope Resp Denies cough GI Denies abdominal pain and Denies heartburn Reports as per HPI and Denies change in libido Neuro Denies syncope Psych Denies change in libido Endo Denies change in libido Physical Exam Const General: cooperative, healthy appearing, comfortable and no acute distress Orientation/consciousness: patient oriented x3 HEENT Face and sinus: Yes normal facial exam Mouth: moist mucous membranes Neck Neck: Yes normal visual inspection, Yes full ROM and Yes trachea midline Chest Chest palpation & inspection: normal inspection of the chest Resp Effort & Inspection: normal respiratory effort, able to speak in complete sentences and no respiratory distress GI Inspection: Yes normal to inspection Back/Spine/Pelvis Cervical Spine: normal cervical lordosis Thoracic/Lumbar Spine: thoracic and lumbar spine normal to inspection Skin General skin exam: no rashes or lesions noted Neuro General: patient oriented x3, gait normal, tone normal and moves all extremities Extrem General: Yes normal to inspection and Yes capillary refill normal Office Procedures Post Void Residual Post Residual Void Post Void Residual (PVR): 0 [id number]-Qxqy Void Residual by ultrasound Results AMB Urinalysis, Automated UA Leukoctes 125 Richard/uL Last Edit by Pilar Mckeon [facility] on 04/23/23 11:43 UA Nitrite Negative Last Edit by Pilar Mckeon [facility] on 04/23/23 11:43 UA Urobilinogen 0.2 mg/dL Last Edit by Pilar Mckeon A on 04/23/23 11:43 UA Protein 100 mg/dL Last Edit by Pilar Mckeon [facility] on 04/23/23 11:43 UA pH 7.0 Last Edit by Pilar Mckeon [facility] on 04/23/23 11:43 UA Blood 80 Marivn/uL Last Edit by Pilar Mckeon [facility] on 04/23/23 11:43 UA Specific [place] 1.020 Last Edit by Pilar Mckeon [facility] on 04/23/23 11:43 UA Ketone Negative Last Edit by Pilar Mckeon [facility] on 04/23/23 11:43 UA Bilirubin 0 mg/dL Last Edit by Pilar Mckeon [facility] on 04/23/23 11:43 UA Glucose 100 mg/dL Last Edit by Pilar Mckeon [facility] on 04/23/23 11:43 Results Reviewed Results Reviewed: Laboratory Last Values Urine pH (Auto) 7.0 04/23/23 11:38 Specific [place] (Auto) 1.020 04/23/23 11:38 Urine Protein (Auto) 100 mg/dL 04/23/23 11:38 Glucose (UA)(Auto) 100 mg/dL 04/23/23 11:38 Urine Ketones (Auto) Negative 04/23/23 11:38 Urine Blood (Auto) 80 Marvin/uL 04/23/23 11:38 Urine Nitrite (Auto) Negative 04/23/23 11:38 Urine Bilirubin (Auto) 0 mg/dL 04/23/23 11:38 Urine Urobilinogen (Auto) 0.2 mg/dL 04/23/23 11:38 Leukocyte Esterase (Auto) 125 Richard/uL 04/23/23 11:38 Assessment & Plan Assessment & Plan (1) BPH (benign prostatic hyperplasia): Code(s): N40.0 - Benign prostatic hyperplasia without lower urinary tract symptoms (2) Urinary retention with incomplete bladder emptying: Code(s): R33.9 - Retention of urine, unspecified Plan Six month follow-up PSA Orders: Orders AMB Urinalysis Automated Today Z13.9 - Encounter for screening, unspecified AMB Post Void Residual by ultrasound Today N40.0 - Benign prostatic hyperplasia without lower urinary tract symptoms PSA,Total (Free>4and<10) 6 Months R97.20 - Elevated prostate specific antigen [PSA] Patient Instructions: Imaging studies, laboratory and physical exam results were discussed and reviewed in detail. No major barriers to patient understanding were identified. An opportunity to ask questions regarding the treatment plan was provided. All questions were answered. The patient expressed understanding and agreement with the above treatment plan. The patient is aware they should contact our office by phone for worsening of their current condition or the appearance of new urologic symptoms. Compliance is encouraged with any medications and followup testing that is ordered. It is a privilege to participate in the urologic care of your patient. If you have any questions or concerns regarding treatment for the above conditions, or other urologic issues, please do not hesitate to contact me. The office telephone contact is [phone]. This note is constructed using voice recognition software. While every effort has been made to ensure accuracy roll trucker errors may have been included. Yours sincerely, Dr Doug Macias MD, [facility] - Urology Providers of Expert, Compassionate Care for the Genitourinary System Coding Level of Care Code Est Pt Level 3 (03586) Diagnoses BPH (benign prostatic hyperplasia) N40.0 Urinary retention with incomplete bladder emptying R33.9 CPT Codes Post Residual Void - PVR CPT Code: 06885-Mtxo Void Residual by ultrasound ([id number])
== END 2023-04-23 12:01 | disposition home or self-care (01) ==
PROVIDERS: PCP Internal Medicine; Visit Provider Urology
DX: N40.0 Benign prostatic hyperplasia without lower urinary tract symptoms (principal); R33.9 Retention of urine, unspecified; Z13.9 Encounter for screening, unspecified
CPT/HCPCS: 99024

== ENCOUNTER → 2023-04-23 11:21 | Outpatient (BNVA) | payer OTHER, SELFPAY | PROVIDERS: Visit Provider Urology | DX: N40.1 Benign prostatic hyperplasia with lower urinary tract symptoms (principal); R33.8 Other retention of urine | CPT/HCPCS: 51798; 81003 ==

== ENCOUNTER 2023-06-01 16:14 | Outpatient (REF) | payer OTHER, SELFPAY ==
--- NOTE | ~2023-06-01 | XR_ITS ---
EXAMINATION: XR CHEST CLINICAL INFORMATION: Fatigue COMPARISON: May 03, 2011 TECHNIQUE: 2 views of the chest were obtained. FINDINGS: There is no gross pneumothorax. Heart size is normal. No pleural effusion. Mild degenerative changes in the thoracic spine. No focal consolidation to suggest pneumonia. XR/XR chest 2V IMPRESSION: No evidence of pneumonia.
[2023-06-01 16:47] LABS: MANUAL DIFF FLAG NO
[2023-06-01 16:58] LABS: Basophils Absolute Auto 0.1 X10*3/uL (0.0-0.2); Basophils Percent Auto 0.4 % (0-2); Eosinophils Absolute Auto 0.3 X10*3/uL (0.0-0.4); Eosinophils Percent Auto 2.2 % (0-4); Hematocrit 47.9 % (42.0-52.0); Hemoglobin 16.2 g/dl (14.0-18.0); Imm Gran Abs Auto 0.05 X10*3/uL (0.00-0.03); Imm Gran Pct Auto 0.4 % (0.0-0.4); Lymphocytes Absolute Auto 1.2 X10*3/uL (1.2-4.9); Lymphocytes Percent Auto 9.2 % (20-40); Mean Corpuscular HGB Conc 33.8 g/dl (31.0-36.0); Mean Corpuscular Hemoglobin 30.7 pg (27.0-33.0); Mean Corpuscular Volume 90.9 fL (80.0-98.0); Mean Platelet Volume 9.5 fL (9.4-12.4); Monocytes Absolute Auto 1.3 X10*3/uL (0.1-1.2); Neutrophils Absolute Auto 9.7 x10*3/uL (2.0-8.3); Neutrophils Percent Auto 77.8 % (45-73); Platelet Count 303 X10*3/uL (160-400); Red Blood Count 5.27 X10*6/uL (4.60-5.80); Red Cell Distribution Width 11.4 % (11.0-16.0); White Blood Count 12.5 X10*3/uL (4.8-10.8)
[2023-06-01 17:13] LABS: Alanine Aminotransferase 14 U/L (0-40); Albumin Level 3.9 g/dL (3.5-5.0); Alkaline Phosphatase 60 U/L (39-117); Anion Gap 19 (12-20); Aspartate Amino Transferase 18 U/L (5-37); Bilirubin Total 1.3 mg/dL (0.0-1.0); Blood Urea Nitrogen 18 mg/dL (9-16); C Reactive Protein 22.15 mg/dL (< or = 0.50); Calcium 10.9 mg/dL (8.4-10.2); Carbon Dioxide 25 mmol/L (22-29); Chloride 100 mmol/L (96-108); Estimated Glomerular Filt Rate > 60; Glucose Random 95 mg/dL (60-115); Potassium 4.7 mmol/L (3.3-5.1); Sodium 139 mmol/L (135-145); Total Protein 8.1 g/dL (6.5-8.0)
[2023-06-01 17:46] LABS: Influenza A PCR NEGATIVE (Negative); Influenza B PCR NEGATIVE (Negative); Resp Syncy Virus RNA Qual PCR NEGATIVE (Negative); SARS COV2 PCR INHOUSE NEGATIVE (Negative)
== END 2023-06-01 16:15 | disposition home or self-care (01) ==
LOC: HO.LAB 16:14
PROVIDERS: PCP Internal Medicine; Visit Provider Internal Medicine
DX: Z11.52 Encounter for screening for COVID-19 (principal); Z20.822 Contact with and (suspected) exposure to COVID-19; R53.83 Other fatigue; M79.10 Myalgia, unspecified site
CPT/HCPCS: 0241U; 71046; 80053; 82550; 85025; 86140

== ENCOUNTER 2023-06-04 15:51 | Outpatient (REF) | payer OTHER, SELFPAY ==
--- NOTE | ~2023-06-04 | XR_ITS ---
EXAMINATION: XR PELVIS CLINICAL INFORMATION: Back pain COMPARISON: None available. TECHNIQUE: AP view of the pelvis. XR/XR pelvis 1-2V FINDINGS/iMPRESSION: Limited single view of the pelvis is remarkable for mild degenerative changes of the bilateral hips with subchondral cystic change. Small left os acetabuli. No acute fracture or dislocation appreciated on this limited single view. Calcified phleboliths in the pelvis.
[2023-06-04 16:45] LABS: MANUAL DIFF FLAG NO
[2023-06-04 17:36] LABS: Basophils Absolute Auto 0.1 X10*3/uL (0.0-0.2); Basophils Percent Auto 0.5 % (0-2); Eosinophils Absolute Auto 0.3 X10*3/uL (0.0-0.4); Eosinophils Percent Auto 2.8 % (0-4); Hematocrit 45.2 % (42.0-52.0); Hemoglobin 15.2 g/dl (14.0-18.0); Imm Gran Abs Auto 0.06 X10*3/uL (0.00-0.03); Imm Gran Pct Auto 0.5 % (0.0-0.4); Lymphocytes Absolute Auto 1.4 X10*3/uL (1.2-4.9); Lymphocytes Percent Auto 11.3 % (20-40); Mean Corpuscular HGB Conc 33.6 g/dl (31.0-36.0); Mean Corpuscular Hemoglobin 30.7 pg (27.0-33.0); Mean Corpuscular Volume 91.3 fL (80.0-98.0); Mean Platelet Volume 9.6 fL (9.4-12.4); Monocytes Absolute Auto 1.2 X10*3/uL (0.1-1.2); Monocytes Percent Auto 9.4 % (2-11); Neutrophils Absolute Auto 9.2 x10*3/uL (2.0-8.3); Neutrophils Percent Auto 75.5 % (45-73); Platelet Count 413 X10*3/uL (160-400); Red Blood Count 4.95 X10*6/uL (4.60-5.80); Red Cell Distribution Width 11.6 % (11.0-16.0); White Blood Count 12.2 X10*3/uL (4.8-10.8)
[2023-06-04 17:37] LABS: Appearance Urine Clear; Color Urine Dark Yellow; Glucose Urine UA Negative (Negative); Leukocyte Esterase Urine Small (1+) (Negative); Nitrite Urine Negative (Negative); PH 5.5 (5.0-9.0); Specific Gravity - Urine >= 1.030 (1.005-1.025); UMIC TRIGGER UACC YES; Urine Blood Trace (Negative); Urine Ketones Trace mg/dL (Negative); Urine Protein 30 (1+) mg/dL (Neg-Trace)
[2023-06-04 17:43] LABS: Bacteria Urine None Seen (None Seen); UACC Culture Trigger YES; WBC Urine >50 /HPF (0-5)
[2023-06-04 18:00] LABS: Alanine Aminotransferase 41 U/L (0-40); Albumin Level 3.5 g/dL (3.5-5.0); Alkaline Phosphatase 68 U/L (39-117); Anion Gap 12 (12-20); Aspartate Amino Transferase 35 U/L (5-37); Bilirubin Total 0.9 mg/dL (0.0-1.0); Blood Urea Nitrogen 22 mg/dL (9-16); C Reactive Protein 24.04 mg/dL (< or = 0.50); Calcium 10.2 mg/dL (8.4-10.2); Carbon Dioxide 29 mmol/L (22-29); Chloride 103 mmol/L (96-108); Estimated Glomerular Filt Rate > 60; Glucose Random 92 mg/dL (60-115); Potassium 4.4 mmol/L (3.3-5.1); Sodium 140 mmol/L (135-145); Total Protein 7.7 g/dL (6.5-8.0)
[2023-06-04 18:15] LABS: PSA,Total (Free>4and<10) 5.81 ng/mL (0.00-4.00)
[2023-06-04 18:33] LABS: Erythrocyte Sedimentation Rate 70 MM/HR (0-15)
[2023-06-08 19:38] LABS: Lyme Abs Screen <0.90 index
[2023-06-09 11:04] LABS: Free Prostate Spec Ag 0.5 ng/mL; Percent Free Prostate Spec Ag 9 % (calc) (>25); Prostate Specific Ag Total 5.7 ng/mL (< OR = 4.0)
== END 2023-06-04 15:52 | disposition home or self-care (01) ==
LOC: HO.LAB 15:51
PROVIDERS: Urology; PCP Internal Medicine; Visit Provider Internal Medicine
DX: M54.50 Low back pain, unspecified (principal); Z12.5 Encounter for screening for malignant neoplasm of prostate; R50.9 Fever, unspecified
CPT/HCPCS: 36415; 72170; 80053; 81001; 82550; 84153; 84154; 85025; 85652; 86140; 86617; 86618; 87086

== ENCOUNTER 2023-06-08 12:50 | Emergency (ER) | payer OTHER, SELFPAY ==
[2023-06-08 13:45] VITALS: BP 138/87; PULSE 89; RESP 16; TEMP 36.8; O2SAT 98; BMI 27.1
[2023-06-08 14:35] LABS: MANUAL DIFF FLAG NO
[2023-06-08 14:37] LABS: Basophils Absolute Auto 0.1 X10*3/uL (0.0-0.2); Basophils Percent Auto 0.8 % (0-2); Eosinophils Absolute Auto 0.3 X10*3/uL (0.0-0.4); Eosinophils Percent Auto 2.8 % (0-4); Hematocrit 40.1 % (42.0-52.0); Hemoglobin 13.3 g/dl (14.0-18.0); Imm Gran Abs Auto 0.09 X10*3/uL (0.00-0.03); Imm Gran Pct Auto 0.8 % (0.0-0.4); Lymphocytes Absolute Auto 1.3 X10*3/uL (1.2-4.9); Lymphocytes Percent Auto 11.1 % (20-40); Mean Corpuscular HGB Conc 33.2 g/dl (31.0-36.0); Mean Corpuscular Hemoglobin 30.2 pg (27.0-33.0); Mean Corpuscular Volume 91.1 fL (80.0-98.0); Mean Platelet Volume 9.1 fL (9.4-12.4); Monocytes Percent Auto 8.8 % (2-11); Neutrophils Absolute Auto 8.8 x10*3/uL (2.0-8.3); Neutrophils Percent Auto 75.7 % (45-73); Platelet Count 477 X10*3/uL (160-400); Red Cell Distribution Width 11.9 % (11.0-16.0); White Blood Count 11.6 X10*3/uL (4.8-10.8)
--- NOTE | 2023-06-08 14:37 | PC.NURSE ---
recent visit with primary care provider, states he had labs drawn and had a white count. also reporting his primary care sent him to the ER today for a ct scan to r/o kidney infection. lab work obtained and swabs sent down. iv established, resting quietly in room at this time. call valverde within reach.
[2023-06-08 14:51] LABS: Alanine Aminotransferase 36 U/L (0-40); Albumin Level 3.2 g/dL (3.5-5.0); Alkaline Phosphatase 67 U/L (39-117); Anion Gap 15 (12-20); Aspartate Amino Transferase 25 U/L (5-37); Bilirubin Total 0.7 mg/dL (0.0-1.0); Blood Urea Nitrogen 19 mg/dL (9-16); Calcium 9.5 mg/dL (8.4-10.2); Carbon Dioxide 23 mmol/L (22-29); Chloride 104 mmol/L (96-108); Creatinine Clr Calc Pharmacy 79.4; Estimated Glomerular Filt Rate > 60; Glucose Random 85 mg/dL (60-115); Potassium 3.9 mmol/L (3.3-5.1); Sodium 138 mmol/L (135-145); Total Protein 7.1 g/dL (6.5-8.0)
[2023-06-08 14:55] LABS: COVID-19 Test Negative (Negative); IDNOW Serial# 08D9AD1C; IDNOW Serial# BCCEAD1C; Influenza A Negative (Negative); Influenza B2 Negative (Negative)
[2023-06-08 15:16] VITALS: BP 146/81; PULSE 87; RESP 17; O2SAT 100
[2023-06-08 15:25] LABS: Appearance Urine Clear; Color Urine Yellow; Glucose Urine UA Negative (Negative); Leukocyte Esterase Urine Small (1+) (Negative); Nitrite Urine Negative (Negative); PH 5.5 (5.0-9.0); UMIC TRIGGER UACC YES; Urine Blood Negative (Negative); Urine Ketones 15 mg/dL (Negative); Urine Protein Trace mg/dL (Neg-Trace)
[2023-06-08 15:30] LABS: Bacteria Urine None Seen (None Seen); Hyaline Casts Urine 0-2 /LPF (0-2); RBC Urine 0-2 /HPF (0-2); Squamous Epithelial Cell Urine 0-2 /HPF (0-2); UACC Culture Trigger YES
--- NOTE | 2023-06-08 17:42 | ED_ITS ---
HPI - General Adult General Chief complaint: General Medical Stated complaint: Kidney Infection Sent by Dr Joyce Time Seen by Provider: 06/08/23 14:41 Source: patient and family () Mode of arrival: ambulatory History of Present Illness [facility] narrative: This is a 63-year-old male who is currently taking ciprofloxacin for a urinary tract infection and presents with concerns over having developed body aches, not feeling well, fatigue, chills, fevers 2 Fridays ago and did not have any associated urinary symptoms, new cough, nausea, vomiting and no diarrhea. Patient states that on Thursday he followed up with his primary care provider who performs some lab work on him which showed a leukocytosis and patient states he has continued to be required to take the Advil or he has return of the fatigue and chills. According to the patient evaluation by his primary care doctor resulted in thoughts that he may be having a urinary tract infection and so patient was started on ciprofloxacin. Related Data Home Medications Medication Instructions Recorded Confirmed aspirin 81 mg tablet,delayed 81 mg PO DAILY 04/10/21 03/04/23 release albuterol sulfate 90 mcg/actuation 90 mcg inhalation Q4H PRN Allergy 11/25/22 03/04/23 aerosol inhaler Symptoms ciprofloxacin HCl 500 mg tablet 500 mg PO BID 11/25/22 11/25/22 Previous Rx's Medication Instructions Recorded finasteride 5 mg tablet 5 mg PO DAILY 90 days #90 tabs 05/21/22 terazosin 5 mg capsule 5 mg PO BEDTIME 30 days #30 caps 12/19/22 Allergies Allergy/AdvReac Type Severity Reaction Status Date / Time No Known Allergies Allergy Verified 04/23/23 11:36 Review of Systems 2 Review of Systems: Pertinent positives and negatives as stated in [facility] Past Medical History Source: nursing notes reviewed Medical History Seasonal allergies BPH (benign prostatic hyperplasia) Elevated PSA GERD (gastroesophageal reflux disease) Surgical History Hx of nasal polypectomy History of left inguinal hernia repair Hx of colonoscopy History of esophagogastroduodenoscopy (EGD) Social History Social History Are you a primary campground caretaker to a significant other at home: No Patient Tobacco Use Status: Former Tobacco user Quit Date: 1982 Advance Directives: No Advance Directives Information Provided: Yes Physical Exam ED Vital Signs: Vital Signs - 24 hr 06/08/23 13:45 06/08/23 15:16 Temperature 98.3 F Pulse Rate 89 87 Respiratory Rate 16 17 Blood Pressure 138/87 146/81 H Pulse Oximetry 98 100 Oxygen Delivery Method Room Air Room Air BMI result Body Mass Index 27.1 VITAL SIGNS: Reviewed. GENERAL: Well developed, well nourished, in no acute distress. HEAD: Normocephalic/atraumatic EYES: PERRLA, EOMI EARS: Ext canals without abnormality NOSE: Nares patent bilateral OROPHARYNX: no oral lesions noted, posterior pharynx clear NECK: Supple, no adenopathy LUNGS: Normal breath sounds. No adventitious sounds or accessory muscle use. SpO2<100> CARDIOVASCULAR: Regular rate and rhythm without noted murmurs, no JVD or lower extremity edema. ABDOMEN: Soft, non-tender, non-distended with bowel sounds. MUSCULOSKELETAL: No tenderness, deformities, or effusions noted on gross inspection. EXTREMITIES: No cyanosis, clubbing or edema. SKIN: Inspection of the skin reveals no rashes, ulcerations, jaundice, pallor, or petechiae. NEUROLOGIC: Alert and oriented x 4. Strength and sensation to light touch were grossly intact x 4. Medical Decision Making Medical Decision Making MDM Narrative: 63-year-old male with history and clinical presentation that I suspect is primarily viral in nature and whenever review the time course patient reports that he is starting to feel improved, but on review of all lab work that was conducted by his primary care provider would agree that patient likely had a urinary tract infection and repeat urinalysis today appears to has significantly improved. Patient will be encouraged to continue with the entire course of antibiotics as prescribed. In addition, I reviewed the chest x-ray from 06/01 which is negative for evidence of infiltrate and otherwise my interpretation is in agreement with radiology's impression. I reviewed all investigations and hematologic again to see show improving elevation of leukocytes with left shift, patient has a new normocytic anemia when compared to 4 days ago but no history year symptoms to suggest active bleeding. Chemistry indices are grossly within normal limits without YVROSE and there is no electrolyte or liver enzyme derangement. On review of prior lab work obtained by the primary care provider both inflammatory markers ESR/CRP are elevated. PSA testing is pending. Given age, symptoms and lower back discomfort will pursue L-spine x-rays. 1800: I was informed by nursing that patient is declining any lumbar spine x- rays, he feels good and wishes to be discharged and will follow up with his primary care doctor. Differential Diagnosis Differential Diagnoses: The differential diagnosis associated with the presentation includes Please see the discussion above Admission/Observation Consideration of admission/observation: Escalation of care including admission/observation considered Please see the discussion above Lab Data MDM Lab Attestation statement: I reviewed the patient's lab results. Please see the discussion above 06/08/23 14:29 06/08/23 14:29 Labs: Lab Results 06/08/23 06/08/23 Range/Units 14:29 15:16 WBC 11.6 H (4.8-10.8) X10*3/uL RBC 4.40 L (4.60-5.80) X10*6/uL Hgb 13.3 L (14.0-18.0) g/dl Hct 40.1 L (42.0-52.0) % MCV 91.1 (80.0-98.0) fL MCH 30.2 (27.0-33.0) pg MCHC 33.2 (31.0-36.0) g/dl RDW 11.9 (11.0-16.0) % Plt Count 477 H (160-400) X10*3/uL MPV 9.1 L (9.4-12.4) fL Immature Gran % (Auto) 0.8 H (0.0-0.4) % Neut % (Auto) 75.7 H (45-73) % Lymph % (Auto) 11.1 L (20-40) % [place] % (Auto) 8.8 (2-11) % Eos % (Auto) 2.8 (0-4) % Baso % (Auto) 0.8 (0-2) % Lymph # (Auto) 1.3 (1.2-4.9) X10*3/uL [place] # (Auto) 1.0 (0.1-1.2) X10*3/uL Eos # (Auto) 0.3 (0.0-0.4) X10*3/uL Baso # (Auto) 0.1 (0.0-0.2) X10*3/uL Abs Immat Gran (auto) 0.09 H (0.00-0.03) X10*3/uL Absolute Neuts (auto) 8.8 H (2.0-8.3) x10*3/uL Absolute Nucleated RBC 0.000 (0.0-0.012) X10*3/uL Nucleated RBC % (auto) 0.0 (0.0-0.2) /100WBC Sodium 138 (135-145) mmol/L Potassium 3.9 (3.3-5.1) mmol/L Chloride 104 (96-108) mmol/L Carbon Dioxide 23 (22-29) mmol/L Anion Gap 15 (12-20) BUN 19 H (9-16) mg/dL Creatinine 1.00 (0.5-1.4) mg/dL Estim Creat Clear Calc 79.4 Estimated GFR > 60 Random Glucose 85 (60-115) mg/dL Calcium 9.5 D (8.4-10.2) mg/dL Total Bilirubin 0.7 (0.0-1.0) mg/dL AST 25 (5-37) U/L ALT 36 (0-40) U/L Alkaline Phosphatase 67 (39-117) U/L Total Protein 7.1 (6.5-8.0) g/dL Albumin 3.2 L (3.5-5.0) g/dL Urine Color Yellow Urine Appearance Clear Urine pH 5.5 (5.0-9.0) Ur Specific [place] 1.020 (1.005-1.025) Urine Protein Trace (Neg-Trace) mg/dL Urine Glucose (UA) Negative (Negative) mg/dL Urine Ketones 15 (Negative) mg/dL Urine Blood Negative (Negative) Urine Nitrite Negative (Negative) Ur Leukocyte Esterase Small (1+) H (Negative) Urine RBC 0-2 (0-2) /HPF Urine WBC 11-20 H (0-5) /HPF Ur Squamous Epith Cells 0-2 (0-2) /HPF Urine Bacteria None Seen (None Seen) Hyaline Casts 0-2 (0-2) /LPF COVID-19 (REG) Negative (Negative) COVID-19 Clin Com See Note Influenza Type A (FIFI) Negative (Negative) Influenza Type B (FIFI) Negative (Negative) Influenza A & B Note See Note External Record Review External record reviewed: Outpatient record, Prior outpatient labs and Prior outpatient radiology Critical Care Time Critical Care Time Critical Care Time: Yes Total Critical Care Time: 30 Attestation: I personally attest to this time spent taking care of the patient. Discharge Plan Discharge Clinical Impression: Lower back pain, Acute UTI Patient Disposition: Home, Self-Care Instructions: Viral Syndrome (ED), Back Pain (ED), Urinary Tract Infection in Men (ED) Additional Instructions: 1. On review of ER workup, I agree that it appears you may have had a urinary tract infection that it has significantly improved. 2. I was going to order lumbar spine x-rays especially given the fact that you have had continued lower back pain which can be a sign of more series conditions. 3. Please do not hesitate follow-up with your primary care doctor at your earliest convenience. Please complete the entire course of your antibiotics. Return to the ER for any worsening symptoms. Prescriptions: No Action finasteride 5 mg tablet 5 mg PO DAILY 90 Days Qty: 90 1RF terazosin 5 mg capsule 5 mg PO BEDTIME 30 Days Qty: 30 5RF aspirin [Aspir-81] 81 mg Tablet,Delayed Release (Dr/Ec) 81 mg PO DAILY albuterol sulfate 90 mcg/actuation HFA aerosol inhaler 90 mcg inhalation Q4H PRN (Reason: Allergy Symptoms) ciprofloxacin HCl 500 mg tablet 500 mg PO BID Referrals: Harsha Joyce MD [Primary Care Provider] -
== END 2023-06-08 18:11 | disposition home or self-care (01) ==
PROVIDERS: Emergency Provider Student in an Organized Health Care Education/Training Program; PCP Internal Medicine
DX: N39.0 Urinary tract infection, site not specified (principal); M54.50 Low back pain, unspecified; Z11.52 Encounter for screening for COVID-19; Z20.822 Contact with and (suspected) exposure to COVID-19; Z79.899 Other long term (current) drug therapy
CPT/HCPCS: 51701; 51798; 80053; 81001; 85025; 87086; 87502; 87635; 99283; 99284

== ENCOUNTER 2023-06-15 07:12 | Outpatient (REF) | payer OTHER, SELFPAY ==
[2023-06-15 11:16] LABS: MANUAL DIFF FLAG NO
[2023-06-15 11:35] LABS: Basophils Absolute Auto 0.1 X10*3/uL (0.0-0.2); Basophils Percent Auto 0.8 % (0-2); Eosinophils Absolute Auto 0.5 X10*3/uL (0.0-0.4); Eosinophils Percent Auto 4.5 % (0-4); Hematocrit 43.6 % (42.0-52.0); Hemoglobin 14.1 g/dl (14.0-18.0); Imm Gran Abs Auto 0.06 X10*3/uL (0.00-0.03); Imm Gran Pct Auto 0.6 % (0.0-0.4); Lymphocytes Absolute Auto 1.4 X10*3/uL (1.2-4.9); Mean Corpuscular HGB Conc 32.3 g/dl (31.0-36.0); Mean Corpuscular Hemoglobin 29.4 pg (27.0-33.0); Mean Platelet Volume 9.6 fL (9.4-12.4); Monocytes Absolute Auto 0.8 X10*3/uL (0.1-1.2); Monocytes Percent Auto 7.8 % (2-11); Neutrophils Absolute Auto 7.8 x10*3/uL (2.0-8.3); Neutrophils Percent Auto 73.3 % (45-73); Platelet Count 525 X10*3/uL (160-400); Red Blood Count 4.79 X10*6/uL (4.60-5.80); Red Cell Distribution Width 12.1 % (11.0-16.0); White Blood Count 10.6 X10*3/uL (4.8-10.8)
[2023-06-15 11:44] LABS: C Reactive Protein 12.54 mg/dL (< or = 0.50)
[2023-06-15 12:00] LABS: Vitamin B12 529 pg/mL (200-900)
[2023-06-15 12:08] LABS: Free T4 (Free Thyroxine) 0.76 ng/dL (0.71-1.85); Thyroid Stimulating Hormone 3.32 uIU/mL (0.32-4.0)
== END 2023-06-15 07:13 | disposition home or self-care (01) ==
LOC: HO.HMGCLDS 07:12
PROVIDERS: PCP Internal Medicine; Visit Provider Internal Medicine
DX: R53.83 Other fatigue (principal); R05.9 Cough, unspecified
CPT/HCPCS: 36415; 82550; 82607; 84439; 84443; 85025; 86140

== ENCOUNTER 2023-06-23 11:16 | Outpatient (REF) | payer OTHER, SELFPAY ==
[2023-06-23 11:38] LABS: MANUAL DIFF FLAG NO
[2023-06-23 12:13] LABS: Basophils Absolute Auto 0.1 X10*3/uL (0.0-0.2); Basophils Percent Auto 0.8 % (0-2); Eosinophils Absolute Auto 0.2 X10*3/uL (0.0-0.4); Eosinophils Percent Auto 1.4 % (0-4); Hematocrit 43.1 % (42.0-52.0); Imm Gran Abs Auto 0.07 X10*3/uL (0.00-0.03); Imm Gran Pct Auto 0.6 % (0.0-0.4); Lymphocytes Absolute Auto 1.3 X10*3/uL (1.2-4.9); Lymphocytes Percent Auto 11.2 % (20-40); Mean Corpuscular HGB Conc 32.5 g/dl (31.0-36.0); Mean Corpuscular Hemoglobin 29.3 pg (27.0-33.0); Mean Corpuscular Volume 90.2 fL (80.0-98.0); Mean Platelet Volume 9.6 fL (9.4-12.4); Monocytes Absolute Auto 1.1 X10*3/uL (0.1-1.2); Monocytes Percent Auto 9.3 % (2-11); Neutrophils Absolute Auto 9.1 x10*3/uL (2.0-8.3); Neutrophils Percent Auto 76.7 % (45-73); Platelet Count 471 X10*3/uL (160-400); Red Blood Count 4.78 X10*6/uL (4.60-5.80); Red Cell Distribution Width 12.2 % (11.0-16.0); White Blood Count 11.8 X10*3/uL (4.8-10.8)
[2023-06-23 12:45] LABS: Alanine Aminotransferase 27 U/L (0-40); Albumin Level 3.6 g/dL (3.5-5.0); Alkaline Phosphatase 58 U/L (39-117); Anion Gap 11 (12-20); Aspartate Amino Transferase 18 U/L (5-37); B Type Natriuretic Peptide 36 pg/mL (<100); Bilirubin Total 0.7 mg/dL (0.0-1.0); Blood Urea Nitrogen 19 mg/dL (9-16); C Reactive Protein 11.31 mg/dL (< or = 0.50); Calcium 10.2 mg/dL (8.4-10.2); Carbon Dioxide 28 mmol/L (22-29); Chloride 104 mmol/L (96-108); Estimated Glomerular Filt Rate > 60; Glucose Random 93 mg/dL (60-115); Potassium 4.1 mmol/L (3.3-5.1); Sodium 139 mmol/L (135-145); Total Protein 8.2 g/dL (6.5-8.0)
[2023-06-23 12:49] LABS: Troponin-I High Sensitivity < 2.7 ng/L (<3.5-35.0)
[2023-06-23 13:12] LABS: D Dimer High Sensitivity 839 NG/ML
== END 2023-06-23 11:17 | disposition home or self-care (01) ==
LOC: HO.10HDL 11:16
PROVIDERS: Visit Provider Internal Medicine
DX: R94.31 Abnormal electrocardiogram [ECG] [EKG] (principal); R55 Syncope and collapse
CPT/HCPCS: 36415; 80053; 82550; 83880; 84484; 85025; 85379; 86140

== ENCOUNTER 2023-06-23 16:59 | Emergency (ER) | payer OTHER, SELFPAY ==
--- NOTE | ~2023-06-23 | XR_ITS ---
EXAMINATION: CHEST 2 VIEWS CLINICAL INFORMATION: palpitations. COMPARISON: 06/01/2023. TECHNIQUE: PA and lateral views of the chest obtained. FINDINGS: The lungs are well expanded. No focal infiltrate, effusion, edema, or pneumothorax. Cardiac and mediastinal silhouettes are within normal limits for technique. No acute bony abnormality seen XR/XR chest 2V IMPRESSION: No evidence of acute disease
--- NOTE | ~2023-06-23 | CT_ITS ---
EXAMINATION: CT ANGIOGRAM OF THE CHEST WITH AND WITHOUT CONTRAST (CT PULMONARY ANGIOGRAM FOR PE) CLINICAL INFORMATION: Elevated serum d-dimer level. COMPARISON: Chest radiographs dated 06/23/2023. TECHNIQUE: Prior to contrast administration, noncontrast localization images were obtained. Subsequently, multidetector volumetric imaging was performed from the thoracic inlet to below the diaphragms following the administration of 80 mL Omnipaque 350 intravenous contrast. No contrast reaction reported Sagittal, coronal, and MIP oblique sagittal reformatted images were obtained on the CT workstation, uploaded to PACS, and reviewed. This CT examination was performed using dose optimization techniques as appropriate, variously including the following: *Automated exposure control *Adjustment of mA and/or kV according to patient size (this includes techniques or standardized protocols for targeted exams where dose is matched to indication/reason for exam; i.e. extremities or head) *Use of iterative reconstruction technique Total exam dose-length product 291 mGy-cm FINDINGS: QUALITY OF STUDY/CONTRAST BOLUS: Satisfactory. PULMONARY ARTERIES: No pulmonary emboli. THORACIC AORTA: No aneurysm or dissection. LUNG: No focal consolidation, nodules or masses. PLEURA: No pleural effusion or pneumothorax. MEDIASTINUM: Normal heart size. No pericardial effusion. In the prevascular region (8:118), a 1.9 x 1.2 cm lymph node is seen. In the precarinal region (8:178), a 2.1 x 1.1 cm lymph node is seen. There are further shotty, nonpathologically enlarged mediastinal lymph nodes. No sizable hilar lymphadenopathy is seen. No evidence of septal bowing or right heart strain. CORONARY ARTERY CALCIFICATION: Very mild. CHEST WALL/AXILLA: No axillary or internal mammary lymphadenopathy. OSSEOUS STRUCTURES: There is multi-level thoracolumbar spondylosis. No acute or aggressive osseous abnormality is seen. UPPER ABDOMEN: Unremarkable. No reflux of contrast into the hepatic veins to suggest elevated right heart pressures. CT/CT angio chest PE protocol IMPRESSION: 1. No pulmonary embolus is seen. There is no thoracic aortic aneurysm or dissection. 2. No nodule, infiltrate, mass or groundglass opacity is seen. 3. There are mildly enlarged mediastinal lymph nodes. These are nonspecific and should be managed on a clinical basis. Recommend continued attention on imaging follow-up as clinically indicated. 4. No acute or aggressive osseous finding is noted. VTE: negative
[2023-06-23 17:05] VITALS: BP 150/90; PULSE 115; RESP 20; TEMP 36.9; O2SAT 98; BMI 25.8
--- NOTE | 2023-06-23 17:05 | ED.GENADULT ---
HPI - General Adult General Chief complaint: Recheck/Abnormal Lab/Rx Stated complaint: possible blood clot in lung Time Seen by Provider: 06/23/23 20:43 Source: patient Mode of arrival: ambulatory Limitations: no limitations History of Present Illness HPI narrative: Patient nonspecific dry cough with flu-like symptoms body aches had the labs done by PCP which showed elevated D-dimer to 839 no acute ischemic changes in the EKG patient was sent here to rule out PE patient denies any significant shortness of breath saturating 98% at room air no leg pain or swelling Related Data Home Medications Medication Instructions Recorded Confirmed aspirin 81 mg tablet,delayed 81 mg PO DAILY 04/10/21 03/04/23 release albuterol sulfate 90 mcg/actuation 90 mcg inhalation Q4H PRN Allergy 11/25/22 03/04/23 aerosol inhaler Symptoms ciprofloxacin HCl 500 mg tablet 500 mg PO BID 11/25/22 11/25/22 Previous Rx's Medication Instructions Recorded finasteride 5 mg tablet 5 mg PO DAILY 90 days #90 tabs 05/21/22 terazosin 5 mg capsule 5 mg PO BEDTIME 30 days #30 caps 12/19/22 Allergies Allergy/AdvReac Type Severity Reaction Status Date / Time No Known Allergies Allergy Verified 04/23/23 11:36 Review of Systems Review of Systems: Yes all other systems are reviewed and are negative PMFSH Past Medical History Medical History Seasonal allergies BPH (benign prostatic hyperplasia) Elevated PSA GERD (gastroesophageal reflux disease) Surgical History Hx of nasal polypectomy History of left inguinal hernia repair Hx of colonoscopy History of esophagogastroduodenoscopy (EGD) Social History Are you a primary hearing care practitioner to a significant other at home: No Alcohol intake: current Alcohol intake frequency: holidays/special occasions only Patient Tobacco Use Status: Former Tobacco user Quit Date: 1982 Smoked in Last 30 Days: No Use of substances other than those prescribed or required for medical reasons: No Advance Directives: No Advance Directives Information Provided: No Physical Exam ED Vital Signs: Vital Signs - 24 hr 06/23/23 17:05 06/23/23 20:21 Temperature 98.4 F 97.8 F Pulse Rate 115 H 94 Respiratory Rate 20 20 Blood Pressure 150/90 H 163/85 H Pulse Oximetry 98 94 Oxygen Delivery Method Room Air Room Air BMI result Body Mass Index 25.8 Appearance: Alert. Oriented X3. No acute distress. ENT: Pharynx normal. Oral Mucosa moist Neck: Normal inspection. Neck supple. CVS: Normal heart rate and rhythm. Pulses normal. Respiratory: No respiratory distress. Equal air entry bilateral, no wheezing/rales/rhonchi Abdomen: Soft and nontender. Bowel sounds are present, no mass palpable, no CVA tenderness Skin: Skin warm and dry. Normal skin color. Normal skin turgor. Extremities: No lower extremity edema. No calf tenderness Neuro: Oriented X 3. No motor deficit. Course Course Course Narrative: This is an RME: Additional HPI, ROS, PE not included below will be deferred to primary provider. This is a 10-m[age]-male presenting to the ER due to elevated D-dimer. Patient reports that over the last several weeks he has been having flu-like symptoms. He states that he went to his primary care office where they performed blood work. D-dimer was elevated at 839. He was also told that his EKG was ?different? from a few weeks ago. No shortness of breath or swelling in his legs. No chest pain but does report a ?flutter? in his upper abdomen. Patient tachycardic at 115 No calf tenderness. Negative Homans sign Plan: Labs, further ER evaluation needed. Medications Administered Discontinued Medications Generic Name Dose Route Start Last Admin Trade Name Freq PRN Reason Stop Dose Admin Iohexol 100 ml 06/23/23 20:04 06/23/23 20:04 Iohexol 350 Mg/Ml 100 Ml Infus..Btl IV 06/23/23 20:05 65 ml ONCE ONE Administration Medical Decision Making Medical Decision Making [facility] Narrative: Patient's elevated D-dimer with bronchitis CTA chest negative for acute PE will discharge patient home advised for supportive treatment Differential Diagnosis Differential Diagnoses: The differential diagnosis associated with the presentation includes Acute PE/bronchitis Lab Data [facility] Lab Attestation statement: I reviewed the patient's lab results. 06/23/23 17:40 06/23/23 17:40 Labs: Lab Results 06/23/23 Range/Units 17:40 WBC 9.9 (4.8-10.8) X10*3/uL RBC 4.59 L (4.60-5.80) X10*6/uL Hgb 13.3 L (14.0-18.0) g/dl Hct 40.6 L (42.0-52.0) % MCV 88.5 (80.0-98.0) fL MCH 29.0 (27.0-33.0) pg MCHC 32.8 (31.0-36.0) g/dl RDW 12.4 (11.0-16.0) % Plt Count 450 H (160-400) X10*3/uL MPV 9.4 (9.4-12.4) fL Immature Gran % (Auto) 0.3 (0.0-0.4) % Neut % (Auto) 67.7 (45-73) % Lymph % (Auto) 17.7 L (20-40) % Jessamine % (Auto) 10.4 (2-11) % Eos % (Auto) 3.4 (0-4) % Baso % (Auto) 0.5 (0-2) % Lymph # (Auto) 1.7 (1.2-4.9) X10*3/uL Jessamine # (Auto) 1.0 (0.1-1.2) X10*3/uL Eos # (Auto) 0.3 (0.0-0.4) X10*3/uL Baso # (Auto) 0.1 (0.0-0.2) X10*3/uL Abs Immat Gran (auto) 0.03 (0.00-0.03) X10*3/uL Absolute Neuts (auto) 6.7 (2.0-8.3) x10*3/uL Absolute Nucleated RBC 0.000 (0.0-0.012) X10*3/uL Nucleated RBC % (auto) 0.0 (0.0-0.2) /100WBC PT 14.2 H (11.1-13.3) SEC INR 1.2 H (0.9-1.1) APTT 32.4 (26.0-36.4) SEC Sodium 140 (135-145) mmol/L Potassium 4.5 (3.3-5.1) mmol/L Chloride 104 (96-108) mmol/L Carbon Dioxide 28 (22-29) mmol/L Anion Gap 13 (12-20) BUN 22 H (9-16) mg/dL Creatinine 1.00 (0.5-1.4) mg/dL Estim Creat Clear Calc 79.4 Estimated GFR > 60 Random Glucose 105 (60-115) mg/dL Calcium 9.9 (8.4-10.2) mg/dL Total Bilirubin 0.5 (0.0-1.0) mg/dL Direct Bilirubin 0.2 (0.0-0.5) mg/dL AST 20 (5-37) U/L ALT 23 (0-40) U/L Alkaline Phosphatase 54 (39-117) U/L Troponin I High Sens 2.8 (<3.5-35.0) ng/L Total Protein 7.7 (6.5-8.0) g/dL Albumin 3.4 L (3.5-5.0) g/dL Influenza Type A (PCR) NEGATIVE (Negative) Influenza Type B (PCR) NEGATIVE (Negative) RSV RNA Qual (PCR) NEGATIVE (Negative) SARS-CoV-2 RNA (RT-PCR) NEGATIVE (Negative) Independent Interpretation I performed an independent interpretation of an: CT Scan Radiology Impression Discussion of test interpretation with radiology: I have reviewed the radiologist's reading. Radiologist Impression: CT/CT angio chest PE protocol IMPRESSION: 1. No pulmonary embolus is seen. There is no thoracic aortic aneurysm or dissection. 2. No nodule, infiltrate, mass or groundglass opacity is seen. 3. There are mildly enlarged mediastinal lymph nodes. These are nonspecific and should be managed on a clinical basis. Recommend continued attention on imaging follow-up as clinically indicated. 4. No acute or aggressive osseous finding is noted. Discharge Plan Discharge Clinical Impression: Allergic bronchitis without complication Patient Disposition: Home, Self-Care Instructions: Acute Bronchitis (ED) Additional Instructions: Continue medications as prescribed by your PCP Your CT scan is negative for blood clots Follow-up with ENT specialist/PCP Prescriptions: No Action finasteride 5 mg tablet 5 mg PO DAILY 90 Days Qty: 90 1RF terazosin 5 mg capsule 5 mg PO BEDTIME 30 Days Qty: 30 5RF aspirin [Aspir-81] 81 mg Tablet,Delayed Release (Dr/Ec) 81 mg PO DAILY albuterol sulfate 90 mcg/actuation HFA aerosol inhaler 90 mcg inhalation Q4H PRN (Reason: Allergy Symptoms) ciprofloxacin HCl 500 mg tablet 500 mg PO BID Referrals: Nilo Liang [Physician] - 1 week Interventions: ED Discharge Assessment Last Done: 06/23/23 21:14 Discharge Date/Time: 06/23/23 21:15
--- NOTE | 2023-06-23 17:11 | ECG_ITS ---
Test Reason : POSSIBLE BLOOD CLOT Blood Pressure : / mmHG Vent. Rate : 104 BPM Atrial Rate : 104 BPM P-R Int : 190 ms QRS Dur : 118 ms QT Int : 350 ms P-R-T Axes : 065 -07 065 degrees QTc Int : 460 ms Sinus tachycardia Left ventricular hypertrophy with QRS widening ( R in aVL , Christian product ) Abnormal ECG When compared with ECG of 03-MAY-2011 07:29, QRS duration has increased Referred By: Sharon Deal Electronically Signed By:SB VELÁZQUEZ MD
[2023-06-23 17:46] LABS: MANUAL DIFF FLAG NO
[2023-06-23 18:04] LABS: Alanine Aminotransferase 23 U/L (0-40); Albumin Level 3.4 g/dL (3.5-5.0); Alkaline Phosphatase 54 U/L (39-117); Anion Gap 13 (12-20); Aspartate Amino Transferase 20 U/L (5-37); Bilirubin Direct 0.2 mg/dL (0.0-0.5); Bilirubin Total 0.5 mg/dL (0.0-1.0); Blood Urea Nitrogen 22 mg/dL (9-16); Calcium 9.9 mg/dL (8.4-10.2); Carbon Dioxide 28 mmol/L (22-29); Chloride 104 mmol/L (96-108); Creatinine Clr Calc Pharmacy 79.4; Estimated Glomerular Filt Rate > 60; Glucose Random 105 mg/dL (60-115); Potassium 4.5 mmol/L (3.3-5.1); Sodium 140 mmol/L (135-145); Total Protein 7.7 g/dL (6.5-8.0)
[2023-06-23 18:10] LABS: INTERNATIONAL NORM RATIO 1.2 (0.9-1.1); Prothrombin Time 14.2 SEC (11.1-13.3); Troponin-I High Sensitivity 2.8 ng/L (<3.5-35.0)
[2023-06-23 18:12] LABS: Partial Thromboplastin Time 32.4 SEC (26.0-36.4)
[2023-06-23 18:17] LABS: Basophils Absolute Auto 0.1 X10*3/uL (0.0-0.2); Basophils Percent Auto 0.5 % (0-2); Eosinophils Absolute Auto 0.3 X10*3/uL (0.0-0.4); Eosinophils Percent Auto 3.4 % (0-4); Hematocrit 40.6 % (42.0-52.0); Hemoglobin 13.3 g/dl (14.0-18.0); Imm Gran Abs Auto 0.03 X10*3/uL (0.00-0.03); Imm Gran Pct Auto 0.3 % (0.0-0.4); Lymphocytes Absolute Auto 1.7 X10*3/uL (1.2-4.9); Lymphocytes Percent Auto 17.7 % (20-40); Mean Corpuscular HGB Conc 32.8 g/dl (31.0-36.0); Mean Corpuscular Volume 88.5 fL (80.0-98.0); Mean Platelet Volume 9.4 fL (9.4-12.4); Monocytes Percent Auto 10.4 % (2-11); Neutrophils Absolute Auto 6.7 x10*3/uL (2.0-8.3); Neutrophils Percent Auto 67.7 % (45-73); Platelet Count 450 X10*3/uL (160-400); Red Blood Count 4.59 X10*6/uL (4.60-5.80); Red Cell Distribution Width 12.4 % (11.0-16.0); White Blood Count 9.9 X10*3/uL (4.8-10.8)
[2023-06-23 18:25] LABS: Influenza A PCR NEGATIVE (Negative); Influenza B PCR NEGATIVE (Negative); Resp Syncy Virus RNA Qual PCR NEGATIVE (Negative); SARS COV2 PCR INHOUSE NEGATIVE (Negative)
[2023-06-23] MEDS: iohexoL 350 MG/ML 100 ML INFUS..BTL IV (20:04)
[2023-06-23 20:21] VITALS: BP 163/85; PULSE 94; RESP 20; TEMP 36.6; O2SAT 94
== END 2023-06-23 21:15 | disposition home or self-care (01) ==
PROVIDERS: Physician Assistant Medical; Emergency Provider Internal Medicine; PCP Internal Medicine
DX: J45.909 Unspecified asthma, uncomplicated (principal); R00.2 Palpitations; M79.10 Myalgia, unspecified site; Z20.822 Contact with and (suspected) exposure to COVID-19; Z20.828 Contact with and (suspected) exposure to other viral communicable diseases; Z79.899 Other long term (current) drug therapy; Z87.891 Personal history of nicotine dependence
CPT/HCPCS: 0241U; 71046; 71275; 80048; 80076; 84484; 85025; 85610; 85730; 93005; 99284; Q9967

== ENCOUNTER → 2023-06-30 10:34 | Outpatient (REF) | payer OTHER, SELFPAY ==
--- NOTE | 2023-06-30 10:38 | HM_ITS ---
Conclusion: 1. Patient was monitored for total period of 3 days 2. Baseline was normal sinus rhythm with average heart rate of 80 beats per minute 3. No significant pauses noted 4. Occasional PACs noted with total burden of 0.16% next 5. Total of 19 episodes of SVT, longest lasting 13 beats and the fastest at 192 beats per minute 5. Occasional PVCs noted 6. Patient reported multiple events, most of the symptoms correlating with abnormal pulsing correlated with sinus rhythm. Some of the episode of rapid heart rate correlated with short runs of SVT. MTDD
== END ==
LOC: HO.CARD 10:34
PROVIDERS: PCP Internal Medicine; Visit Provider Internal Medicine
DX: R94.31 Abnormal electrocardiogram [ECG] [EKG] (principal); R00.2 Palpitations
CPT/HCPCS: 93242

== ENCOUNTER → 2023-06-30 10:38 | Outpatient (BNV) | payer OTHER, SELFPAY | PROVIDERS: PCP Internal Medicine; Visit Provider Internal Medicine Cardiovascular Disease | DX: I47.10 Supraventricular tachycardia, unspecified (principal) | CPT/HCPCS: 93244 ==

== ENCOUNTER 2023-07-06 11:29 | Outpatient (REF) | payer OTHER, SELFPAY ==
[2023-07-06 13:49] LABS: MANUAL DIFF FLAG NO
[2023-07-06 14:05] LABS: Appearance Urine Hazy; Color Urine Yellow; Glucose Urine UA Negative (Negative); Leukocyte Esterase Urine Small (1+) (Negative); Nitrite Urine Negative (Negative); Specific Gravity - Urine 1.015 (1.005-1.025); UMIC TRIGGER UACC YES; Urine Blood Trace (Negative); Urine Ketones Negative (Negative); Urine Protein Trace mg/dL (Neg-Trace)
[2023-07-06 14:19] LABS: Alanine Aminotransferase 14 U/L (0-40); Albumin Level 3.4 g/dL (3.5-5.0); Alkaline Phosphatase 57 U/L (39-117); Anion Gap 14 (12-20); Aspartate Amino Transferase 17 U/L (5-37); Bilirubin Total 0.5 mg/dL (0.0-1.0); Blood Urea Nitrogen 17 mg/dL (9-16); C Reactive Protein 4.39 mg/dL (< or = 0.50); Calcium 9.7 mg/dL (8.4-10.2); Carbon Dioxide 25 mmol/L (22-29); Chloride 103 mmol/L (96-108); Estimated Glomerular Filt Rate > 60; Glucose Random 82 mg/dL (60-115); Potassium 4.1 mmol/L (3.3-5.1); Sodium 138 mmol/L (135-145); Total Protein 7.3 g/dL (6.5-8.0)
[2023-07-06 14:23] LABS: Bacteria Urine None Seen (None Seen); Hyaline Casts Urine 0-2 /LPF (0-2); RBC Urine 0-2 /HPF (0-2); UACC Culture Trigger YES; WBC Urine 21-50 /HPF (0-5)
[2023-07-06 15:12] LABS: Basophils Absolute Auto 0.1 X10*3/uL (0.0-0.2); Basophils Percent Auto 0.7 % (0-2); Eosinophils Absolute Auto 0.2 X10*3/uL (0.0-0.4); Eosinophils Percent Auto 2.3 % (0-4); Hematocrit 41.9 % (42.0-52.0); Hemoglobin 13.8 g/dl (14.0-18.0); Imm Gran Abs Auto 0.04 X10*3/uL (0.00-0.03); Imm Gran Pct Auto 0.4 % (0.0-0.4); Lymphocytes Absolute Auto 1.6 X10*3/uL (1.2-4.9); Lymphocytes Percent Auto 17.1 % (20-40); Mean Corpuscular HGB Conc 32.9 g/dl (31.0-36.0); Mean Corpuscular Hemoglobin 28.9 pg (27.0-33.0); Mean Corpuscular Volume 87.7 fL (80.0-98.0); Mean Platelet Volume 10.4 fL (9.4-12.4); Monocytes Absolute Auto 0.8 X10*3/uL (0.1-1.2); Monocytes Percent Auto 8.4 % (2-11); Neutrophils Absolute Auto 6.7 x10*3/uL (2.0-8.3); Neutrophils Percent Auto 71.1 % (45-73); Platelet Count 385 X10*3/uL (160-400); Red Blood Count 4.78 X10*6/uL (4.60-5.80); Red Cell Distribution Width 12.7 % (11.0-16.0); White Blood Count 9.4 X10*3/uL (4.8-10.8)
== END 2023-07-06 11:30 | disposition home or self-care (01) ==
LOC: HO.HMGCLDS 11:29
PROVIDERS: PCP Internal Medicine; Visit Provider Internal Medicine
DX: R00.2 Palpitations (principal); R06.02 Shortness of breath; R30.0 Dysuria
CPT/HCPCS: 36415; 80053; 81001; 81003; 82550; 85025; 86140; 87086

== ENCOUNTER 2023-07-22 13:59 | Outpatient (AMB) | payer OTHER, SELFPAY ==
--- NOTE | 2023-07-22 14:12 | A.OFFVIS_ITS ---
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 He is accompanied by his during the entire visit. Patient says over the last many months he was diagnosed with sudden form of systemic inflammatory syndrome/infectious syndrome. He is not sure as to the diagnosis. Although he was treated for it. For the last few months he has been noticing symptoms of palpitations. He said usually starts noticing the symptoms with twitching in his epigastric area which can last for couple of minutes and then is followed by rapid heart rate and palpitations. Since symptoms associated with lightheadedness. He is extremely anxious about this symptoms. For this reason he underwent a Holter monitor which showed occasional PACs and PVCs and short burst of SVTs. Some of symptoms of palpitations correlated with SVT which was symptoms with fast heart rate up to 190 beats per minute. He is very concerned about the symptoms. He has also long-term history of white coat hypertension says under stressful situations blood pressure is elevated. Including today. He appears very anxious. Patient also has had history many years ago of this palpitation under stressful situation which has now improved. Patient denies any clear exertional chest pain or shortness of breath. He denies any recent change in his dietary habits and/or stou-fhg-bntzjzh medications. [facility] Medical History Seasonal allergies BPH (benign prostatic hyperplasia) Elevated PSA GERD (gastroesophageal reflux disease) Surgical History Hx of nasal polypectomy History of left inguinal hernia repair Hx of colonoscopy History of esophagogastroduodenoscopy (EGD) Social History Are you a primary residential caregiver to a significant other at home: No Alcohol intake: current Alcohol intake frequency: holidays/special occasions only Patient Tobacco Use Status: Former Tobacco user Quit Date: 1982 Review of Systems Const Denies chills, Denies daytime sleepiness, Denies fatigue, Denies fever(s), Denies frequent falls, Denies poor appetite, Denies snoring, Denies stops breathing during sleep, Denies weakness, Denies weight gain and Denies weight loss Eyes Denies loss of vision ENT Denies dizziness and Denies hearing loss Card Denies chest pain, Denies claudication, Denies leg edema, Denies lightheadedness, Denies palpitations, Denies dyspnea, Denies dyspnea on exertion and Denies orthopnea Resp Denies cough, Denies excessive phlegm production, Denies dyspnea, Denies dyspnea on exertion, Denies snoring and Denies wheezing GI Denies abdominal pain, Denies hematochezia, Denies change in bowel habits, Denies nausea and Denies vomiting Denies dysuria and Denies urinary frequency Musc Denies arthralgias, Denies muscle weakness, Denies numbness and Denies other (frequent falls) Skin/Breast Denies nail changes and Denies rash Neuro Denies Abnormal speech present, Denies dizziness, Denies frequent falls, Denies loss of vision, Denies memory loss, Denies numbness and Denies weakness Psych Denies depression and Denies memory loss Endo Denies fatigue and Denies palpitations Candido/Lymph Reports easy bruising and Reports other (anemia) Aller/Immun Denies wheezing Physical Exam Vital Signs: Last Vital Signs Pulse 101 H 07/22/23 14:53 BP 189/91 H 07/22/23 14:53 BMI result Body Mass Index 25.5 Const General: cooperative, comfortable, no acute distress, alert, awake, Physically active and anxious Nutritional Appearance: average body habitus Orientation/consciousness: patient oriented x3 Limitations: no limitations HEENT Head: Yes normocephalic and Yes atraumatic Neck Neck: Yes trachea midline, Yes supple and Yes no JVD Resp Effort & Inspection: normal respiratory effort Auscultation: clear to auscultation bilaterally Cardio Jugular venous distension: no JVD Palpation: normal PMI Rate: regular rate Rhythm: regular rhythm Heart sounds: S1 normal heart sound present, S2 normal heart sound present, no click, no gallops, no murmurs and no rubs GI Auscultation: normal bowel sounds Skin General skin exam: no rashes or lesions noted Neuro General: patient oriented x3 and no focal motor deficits Speech: No Abnormal speech present Extrem General: Yes no clubbing, cyanosis or edema Psych Affect: Anxious affect present Office Procedures EKG Details: EKG shows normal sinus rhythm with left ventricular hypertrophy [id number], Complete Assessment & Plan Assessment & Plan (1) SVT (supraventricular tachycardia): Code(s): I47.10 - Supraventricular tachycardia, unspecified Plan: Patient with what appears to be highly symptomatic short episodes of SVT. Very detailed discussion about his arrhythmias found on the Holter monitor. He does not have any clear prolonged episodes or requirement present to the hospital. However is very anxious about it. He also has twitching in his chest which appear to be related to isolated PACs/PVCs. Is concerned about the symptoms ongoing and causing him to have more seizures outcome. We discussed about pathophysiology of SVT with dual AV celeste physiology and overall benign outcomes associated with. We discussed about management plan. The most important will be stress mitigation strategies avoidance of stimulants. We discussed about various stress mitigation strategies. However I think he will benefit from therapy given his highly symptomatic nature. Will start him on Toprol-XL 50 mg daily. This should also help with his white coat hypertension. Will obtain baseline structural heart workup including echocardiogram and treadmill stress test. We had a detailed discussion about vagal maneuvers. We discussed about more advanced techniques a chest ablation as well if need be. Repeat Holter monitor in the future on medical therapy. Will follow up in the clinic in 4-6 weeks time, sooner p.r.n.. Thank you for allowing me to partake in his care Orders: Orders ECG 3 day holter monitor 2 Weeks I47.10 - Supraventricular tachycardia, unspecified Medications: New metoprolol succinate ER (Toprol XL) 50 mg PO DAILY 30 tabs 3RF I47.10 - Supraventricular tachycardia, unspecified Coding Level of Care Code New Pt Level 4 (64297) Diagnoses SVT (supraventricular tachycardia) I47.10 CPT Codes EKG - CPT: 26071-[id number], Complete ([id number])
[2023-07-22 14:15] VITALS: BP 157/81; PULSE 98; BMI 25.5
[2023-07-22 14:49] VITALS: BP 169/87; PULSE 87
[2023-07-22 14:53] VITALS: BP 189/91; PULSE 101
== END 2023-07-22 15:25 | disposition home or self-care (01) ==
PROVIDERS: PCP Internal Medicine; Visit Provider Internal Medicine Cardiovascular Disease
DX: I47.10 Supraventricular tachycardia, unspecified (principal)
CPT/HCPCS: 93010; 99204

== ENCOUNTER → 2023-07-22 13:59 | Outpatient (BNVA) | payer OTHER, SELFPAY | PROVIDERS: PCP Internal Medicine; Visit Provider Internal Medicine Cardiovascular Disease | DX: I47.10 Supraventricular tachycardia, unspecified (principal) | CPT/HCPCS: 93005 ==

== ENCOUNTER 2023-07-28 09:49 | Outpatient (REF) | payer OTHER, SELFPAY ==
[2023-07-28 13:11] LABS: MANUAL DIFF FLAG NO
[2023-07-28 13:17] LABS: Basophils Absolute Auto 0.1 X10*3/uL (0.0-0.2); Basophils Percent Auto 0.7 % (0-2); Eosinophils Absolute Auto 0.2 X10*3/uL (0.0-0.4); Eosinophils Percent Auto 3.3 % (0-4); Imm Gran Abs Auto 0.02 X10*3/uL (0.00-0.03); Imm Gran Pct Auto 0.3 % (0.0-0.4); Lymphocytes Absolute Auto 1.6 X10*3/uL (1.2-4.9); Lymphocytes Percent Auto 22.4 % (20-40); Mean Corpuscular HGB Conc 31.8 g/dl (31.0-36.0); Mean Corpuscular Hemoglobin 27.8 pg (27.0-33.0); Mean Corpuscular Volume 87.3 fL (80.0-98.0); Mean Platelet Volume 10.9 fL (9.4-12.4); Monocytes Absolute Auto 0.7 X10*3/uL (0.1-1.2); Monocytes Percent Auto 9.8 % (2-11); Neutrophils Absolute Auto 4.4 x10*3/uL (2.0-8.3); Neutrophils Percent Auto 63.5 % (45-73); Platelet Count 282 X10*3/uL (160-400); Red Blood Count 5.04 X10*6/uL (4.60-5.80); Red Cell Distribution Width 14.7 % (11.0-16.0); White Blood Count 6.9 X10*3/uL (4.8-10.8)
[2023-07-28 13:31] LABS: Alanine Aminotransferase 7 U/L (0-40); Albumin Level 3.7 g/dL (3.5-5.0); Alkaline Phosphatase 63 U/L (39-117); Anion Gap 12 (12-20); Aspartate Amino Transferase 13 U/L (5-37); Bilirubin Total 0.7 mg/dL (0.0-1.0); Blood Urea Nitrogen 18 mg/dL (9-16); C Reactive Protein 1.66 mg/dL (< or = 0.50); Calcium 9.6 mg/dL (8.4-10.2); Carbon Dioxide 27 mmol/L (22-29); Chloride 105 mmol/L (96-108); Estimated Glomerular Filt Rate > 60; Glucose Random 84 mg/dL (60-115); Lipase 17 U/L (8-78); Potassium 4.4 mmol/L (3.3-5.1); Sodium 140 mmol/L (135-145); Total Protein 7.3 g/dL (6.5-8.0)
== END 2023-07-28 09:50 | disposition home or self-care (01) ==
LOC: HO.HMGCLDS 09:49
PROVIDERS: PCP Internal Medicine; Visit Provider Internal Medicine
DX: R00.2 Palpitations (principal); K21.9 Gastro-esophageal reflux disease without esophagitis; K57.90 Diverticulosis of intestine, part unspecified, without perforation or abscess without bleeding; R79.82 Elevated C-reactive protein (CRP)
CPT/HCPCS: 36415; 80053; 83690; 85025; 86140

== ENCOUNTER → 2023-08-10 07:54 | Outpatient (REF) | payer OTHER, SELFPAY ==
--- NOTE | 2023-08-10 07:58 | HM_ITS ---
Conclusion: 1. Patient was monitored for total period of 2 days and 23 hours 2. Baseline was normal sinus rhythm with average heart of 61 beats per minute 3. No significant pauses noted but frequent sinus bradycardia noted with 60% of the time heart rate below 60 beats per minute 4. Occasional PACs and PVCs noted 5. To episodes of nonsustained VT, 1 lasting 7 beats at 184 beats per minute and other 3 beats 6. Patient reported 1 event did not correlated with any significant arrhythmias MTDD
== END ==
LOC: HO.CARD 07:54
PROVIDERS: PCP Internal Medicine; Visit Provider Internal Medicine Cardiovascular Disease
DX: I47.10 Supraventricular tachycardia, unspecified (principal)
CPT/HCPCS: 93017; 93242; 93306; Q9957

== ENCOUNTER → 2023-08-10 07:58 | Outpatient (BNV) | payer OTHER, SELFPAY | PROVIDERS: PCP Internal Medicine; Visit Provider Nurse Practitioner Family | DX: I49.1 Atrial premature depolarization (principal) | CPT/HCPCS: 93016; 93018; 93244; 93306 ==

== ENCOUNTER 2023-08-19 09:00 | Outpatient (AMB) | payer OTHER, SELFPAY ==
--- NOTE | 2023-08-19 09:09 | A.OFFVIS_ITS ---
Intake Vital Signs 08/19/23 09:12 Height 5 ft 11 in Weight 182 lb 15.739 oz BMI 25.5 BP 142/86 H Blood Pressure Location Lt brachial Position Sitting Pulse 60 Intake Visit Reasons: 4 wk f/up holter/ echo / ett Intake Note: 4 week follow-up after holter, echo, and ett still has mibi booked for end of Sep feeling better Cryptographic Vulnerability Analyst Required: No In Processing Instructor: In Processing Instructor Present Accompanied by: Spouse Allergies perflutren Adverse Reaction (Verified 08/10/23 13:06) Back Pain Medication List - Last Reconciled 08/19/23 by Jeff Reyes MD albuterol sulfate 90 mcg/actuation 90 mcg inhalation Q4H PRN aspirin 81 mg PO DAILY metoprolol succinate ER (Toprol XL) 50 mg PO DAILY HPI HPI Comments History of Present Illness Details Andrez comes for follow-up. He has been feeling better on Toprol 50 with much improved blood pressure. Feels better. No significant palpitations. Echocardiogram shows normal LV systolic function with very early mild aortic stenosis. Stress test was abnormal, with positive EKG changes and is scheduled for exercise nuclear which has not been done as yet. Holter monitor showed 1 wide complex run which could represent SVT with aberrancy or nonsustained VT. [facility] Medical History Seasonal allergies BPH (benign prostatic hyperplasia) Elevated PSA GERD (gastroesophageal reflux disease) Surgical History Hx of nasal polypectomy History of left inguinal hernia repair Hx of colonoscopy History of esophagogastroduodenoscopy (EGD) Social History Are you a primary children's zoo caretaker to a significant other at home: No Alcohol intake: current Alcohol intake frequency: holidays/special occasions only Patient Tobacco Use Status: Former Tobacco user Quit Date: 1982 Review of Systems Const Denies chills, Denies fatigue, Denies fever(s), Denies frequent falls, Denies weakness, Denies weight gain and Denies weight loss ENT Denies dizziness Card Denies chest pain, Denies leg edema, Denies lightheadedness, Denies palpitations, Denies dyspnea, Denies dyspnea on exertion, Denies orthopnea and Denies other (loss of consciousness) Resp Denies cough, Denies dyspnea and Denies dyspnea on exertion GI Denies hematochezia and Denies change in stool character Musc Denies abnormal gait, Denies muscle weakness, Denies numbness, Denies radiating pain into limb and Denies tingling Neuro Denies Abnormal speech present, Denies abnormal gait, Denies dizziness, Denies frequent falls, Denies numbness, Denies tingling and Denies weakness Endo Denies fatigue and Denies palpitations Physical Exam Vital Signs: Last Vital Signs Pulse 60 08/19/23 09:12 BP 142/86 H 08/19/23 09:12 BMI result Body Mass Index 25.5 Const General: cooperative, comfortable, no acute distress, alert, awake, Physically active and anxious Nutritional Appearance: average body habitus Orientation/consciousness: patient oriented x3 Limitations: no limitations Neck Neck: Yes trachea midline, Yes supple and Yes no JVD Resp Effort & Inspection: normal respiratory effort Auscultation: clear to auscultation bilaterally Cardio Jugular venous distension: no JVD Palpation: normal PMI Rate: regular rate Rhythm: regular rhythm Heart sounds: S1 normal heart sound present, S2 normal heart sound present, no click, no gallops, Murmur heart sound present systolic early and no rubs GI Auscultation: normal bowel sounds Skin General skin exam: no rashes or lesions noted Neuro General: patient oriented x3 and no focal motor deficits Speech: No Abnormal speech present Extrem General: Yes no clubbing, cyanosis or edema Psych Affect: Anxious affect present Assessment & Plan Assessment & Plan (1) SVT (supraventricular tachycardia): Code(s): I47.10 - Supraventricular tachycardia, unspecified Plan: SVT which is now controlled on metoprolol therapy with Holter showing not 1 episode of nonsustained VT. Normal LV systolic function. Stress test is abnormal and needs to pursue exercise myocardial perfusion imaging to rule out myocardial ischemia conclusively. This was discussed with him. He is very anxious about it and discuss that if the stress test is normal the risk of any arrhythmia causing any significant adverse outcome is low. He understands and agrees. Continue avoid stimulants. Will maximize metoprolol to 100 mg daily, see below. Also stress mitigation strategies were discussed. (2) HTN (hypertension): Code(s): I10 - Essential (primary) hypertension Plan: Hypertension which is not completely well controlled at this point time. Increase metoprolol to 100 mg daily. Advised to monitor blood pressure at home and maintain a log. Low-salt diet was discussed. Stress mitigation strategies was discussed. Continue maintain heart healthy lifestyle. Will follow up in 4 weeks for blood pressure check and in 6 months with me. (3) Aortic stenosis: Code(s): I35.0 - Nonrheumatic aortic (valve) stenosis Plan: Aortic stenosis which is early and mild. No interventions required. Continue aggressive risk factor modification. Continue blood pressure control as above. Follow up with echocardiogram in a year's time. Will follow up in the clinic as mentioned above Orders: Orders CA stress test 08/14/23 I47.10 - Supraventricular tachycardia, unspecified, R94.39 - Abnormal result of other cardiovascular function study Medications: New metoprolol succinate ER (Toprol XL) 100 mg PO DAILY 30 tabs 5RF Discontinued metoprolol succinate ER (Toprol XL) Discontinued Reason: Doctor's Order 50 mg PO DAILY 30 tabs 3RF I47.10 - Supraventricular tachycardia, unspecified Coding Level of Care Code Est Pt Level 4 (03719) Diagnoses SVT (supraventricular tachycardia) I47.10 HTN (hypertension) I10 Aortic stenosis I35.0
[2023-08-19 09:12] VITALS: BP 142/86; PULSE 60; BMI 25.5
== END 2023-08-19 09:39 | disposition home or self-care (01) ==
PROVIDERS: PCP Internal Medicine; Visit Provider Internal Medicine Cardiovascular Disease
DX: I47.10 Supraventricular tachycardia, unspecified (principal); I10 Essential (primary) hypertension; I35.0 Nonrheumatic aortic (valve) stenosis
CPT/HCPCS: 99214

== ENCOUNTER → 2023-08-19 09:00 | Outpatient (BNVA) | payer OTHER, SELFPAY | PROVIDERS: PCP Internal Medicine; Visit Provider Internal Medicine Cardiovascular Disease | DX: I47.10 Supraventricular tachycardia, unspecified (principal); R94.39 Abnormal result of other cardiovascular function study ==

== ENCOUNTER → 2023-08-21 07:56 | Outpatient (REF) | payer OTHER, SELFPAY ==
--- NOTE | ~2023-08-21 | NM_ITS ---
Exercise Myocardial perfusion study Indication: Abnormal EKG with arrhythmias to evaluate for myocardial ischemia Technique: The patient was brought in for an exercise perfusion study on 08/21/2023. Patient performed exercise as per John Paul protocol and was injected 30 mCi of sestamibi was given intravenously one target HR was achieved. Images were obtained using the SPECT gamma camera interlaced with the gating device. Images were obtained in supine position. Resting perfusion study was performed on 08/25/2023. Patient was administered 30 mCi of sestamibi intravenously at rest. Images were then obtained in supine position. Images obtained with and without CT attenuation. Total DLP 87 mGy-cm. Images were processed with the software and compared side to side in short axis, horizontal long axis and vertical long axis views. Findings: The stress perfusion study showed non attenuated images show mildly to moderately reduced uptake in the basal and mid inferior as well as moderately reduced uptake in the basal and mid anteroseptal reduced uptake in the inferolateral as well as moderately reduced uptake in the anteroseptal and septal wall of the LV myocardium. Attenuation corrected images show mildly to moderately reduced uptake in the apex and mildly reduced uptake in the inferoseptum and septum of the LV myocardium.. The gated study shows normal LV systolic function with calculated LVEF of 55%. LV cavity is mildly dilated in size. The gated study shows normal wall thickening and contraction of all segments. There is no transient ischemic dilation. Resting study shows no significant change in perfusion pattern compared to stress perfusion study. Gating at rest reveals normal systolic wall motion with ejection fraction at 51%. The findings are consistent with no clear reversible defect suggestive of ischemia. Fixed defect with normal wall motion suggestive wall of attenuation artifact. Nontransmural myocardial infarction cannot be entirely ruled out.. NM/NM cardiolite stress test Impression: 1. No evidence of ischemia with fixed septal and apical defect suggestive of attenuation artifact. 2. Gated LVEF is 55% 3. Transient ischemic dilatation not present Stress EKG is suggestive of ischemia
--- NOTE | 2023-08-21 08:02 | CA_ITS ---
Acquisition Time: 2023-08-21 08:00:14 Total Exercise Time: 00:06:00 Test Indications: ABN ECG Medications: SEE H Protocol: BRIANA Max HR: 142 BPM 91% of Pred: 156 BPM Max BP: 156/088 mmHG Max Work Load: 7.0 METS Exercise stress test with exercise 6 min of Briana protocol achieving 90% MPHR, without anginal symptoms, with isolated PACs and PVCs, with normtensive response to exercise, with baseline EKG showing downsloping ST V6 and slight downslope ST V5, then at peak exercise there is [address] depression V6 and [address] V5 , meeting criteria for ischemia, which returns to baseline in recovery. Nuclear images pending. Test reviewed with Dr Barrett Referred By: Jeff Reyes Overread By: ORLANDO DALTON
== END ==
LOC: HO.CARD 07:56
PROVIDERS: PCP Internal Medicine; Visit Provider Nurse Practitioner Family
DX: I47.10 Supraventricular tachycardia, unspecified (principal); R94.39 Abnormal result of other cardiovascular function study; R94.31 Abnormal electrocardiogram [ECG] [EKG]
CPT/HCPCS: 78452; 93017; A9500

== ENCOUNTER → 2023-08-21 08:02 | Outpatient (BNV) | payer OTHER, SELFPAY | PROVIDERS: PCP Internal Medicine; Visit Provider Nurse Practitioner Family | DX: R94.39 Abnormal result of other cardiovascular function study (principal); R94.31 Abnormal electrocardiogram [ECG] [EKG] | CPT/HCPCS: 78452; 93016; 93018 ==

== ENCOUNTER 2023-09-10 07:46 | Outpatient (REF) | payer OTHER, SELFPAY ==
[2023-09-10 12:20] LABS: Anion Gap 11 (12-20); Blood Urea Nitrogen 24 mg/dL (9-16); Calcium 9.8 mg/dL (8.4-10.2); Carbon Dioxide 28 mmol/L (22-29); Chloride 103 mmol/L (96-108); Estimated Glomerular Filt Rate > 60; Glucose Random 88 mg/dL (60-115); Potassium 4.1 mmol/L (3.3-5.1); Sodium 138 mmol/L (135-145)
== END 2023-09-10 07:47 | disposition home or self-care (01) ==
LOC: HO.HMGCLDS 07:46
PROVIDERS: PCP Internal Medicine; Visit Provider Nurse Practitioner Family
DX: I47.29 Other ventricular tachycardia (principal)
CPT/HCPCS: 36415; 80048

== ENCOUNTER → 2023-09-16 08:42 | Outpatient (BNVA) | payer OTHER, SELFPAY | PROVIDERS: PCP Internal Medicine; Visit Provider Internal Medicine Cardiovascular Disease ==

== ENCOUNTER 2023-10-15 12:02 | Outpatient (REF) | payer OTHER, SELFPAY ==
[2023-10-15 14:09] LABS: PSA,Total (Free>4and<10) 5.23 ng/mL (0.00-4.00)
[2023-10-19 09:49] LABS: Free Prostate Spec Ag 0.8 ng/mL; Percent Free Prostate Spec Ag 14 % (calc) (>25); Prostate Specific Ag Total 5.6 ng/mL (< OR = 4.0)
== END 2023-10-15 12:03 | disposition home or self-care (01) ==
LOC: HO.HMGCLDS 12:02
PROVIDERS: PCP Internal Medicine; Visit Provider Urology
DX: Z12.5 Encounter for screening for malignant neoplasm of prostate (principal); N40.0 Benign prostatic hyperplasia without lower urinary tract symptoms; R97.20 Elevated prostate specific antigen [PSA]
CPT/HCPCS: 36415; 84153; 84154

== ENCOUNTER 2023-10-22 08:41 | Outpatient (AMB) | payer OTHER, SELFPAY ==
--- NOTE | 2023-10-22 08:52 | A.OFFVIS_ITS ---
Intake Intake Visit Reasons: 6M PSA(set)Confirmed Intake Note: Patient presents today for a PSA follow-up Meds- None Allergies to Antibiotic- No Known Allergies Blood Thinner- Aspirin [place] Or [place] Auditor Required: No Allergies perflutren Adverse Reaction (Verified 10/22/23 08:53) Back Pain HPI HPI Comments History of Present Illness Details Kameron is a very pleasant male. He is a patient of Dr. Joyce. He is seen for the following urologic condition - elevated PSA - episode of urinary retention Telemedicine Evaluation 15 min Consultation Libratone Lm Video Urinary stream, feeling empty, nocturia 1-2 Prior 03/25 [facility] - Pathology chronic inflammation. Copy provided Recent viral illness with cardiac implications 5.3 F 14% off medications Elevated PSA/LUTS Episode of urinary retention October 2022 Found to have elevated PSA on regular follow-up with PCP Initial therapy trial of finasteride - Improvement of frequency and weakness of stream with finasteride Intervention - 03/25 [facility] laser prostatectomy - pathology chronic i nflammation PSA - 12/21 5.9, 05/23 3.8, 11/22 2.7, 11/23 10 .53, 02/21 4.3 12%, 10/24 5.3 F 14% Plan to continue with interval surveillance [facility] Medical History Seasonal allergies BPH (benign prostatic hyperplasia) Elevated PSA GERD (gastroesophageal reflux disease) Surgical History Hx of nasal polypectomy History of left inguinal hernia repair Hx of colonoscopy History of esophagogastroduodenoscopy (EGD) Social History Are you a primary healthcare receptionist to a significant other at home: No Alcohol intake: current Alcohol intake frequency: holidays/special occasions only Patient Tobacco Use Status: Former Tobacco user Quit Date: 1982 Review of Systems Const All systems reviewed & are unremarkable except as noted in HPI and below Reports no additional complaints Resp Reports no additional complaints GI Reports no additional complaints Reports as per HPI Musc Reports no additional complaints Physical Exam Telemedicine evaluation Appropriate responses Regular breathing rate and rhythm HEENT Head: Yes normal to inspection Ears: hearing grossly normal bilaterally Eyes General: appearance normal, both eyes and all related structures Neck Neck: Yes normal visual inspection Chest Chest palpation & inspection: normal inspection of the chest Resp Effort & Inspection: normal respiratory effort and able to speak in complete sentences Assessment & Plan Assessment & Plan (1) Elevated PSA: Code(s): R97.20 - Elevated prostate specific antigen [PSA] (2) BPH (benign prostatic hyperplasia): Code(s): N40.0 - Benign prostatic hyperplasia without lower urinary tract symptoms Plan Six-month follow-up PSA and PVR office Orders: Orders PSA,Total (Free>4and<10) 6 Months R97.20 - Elevated prostate specific antigen [PSA] Patient Instructions: Imaging studies, laboratory and physical exam results were discussed and reviewed in detail. No major barriers to patient understanding were identified. An opportunity to ask questions regarding the treatment plan was provided. All questions were answered. The patient expressed understanding and agreement with the above treatment plan. The patient is aware they should contact our office by phone for worsening of their current condition or the appearance of new urologic symptoms. Compliance is encouraged with any medications and followup testing that is ordered. It is a privilege to participate in the urologic care of your patient. If you have any questions or concerns regarding treatment for the above conditions, or other urologic issues, please do not hesitate to contact me. The office telephone contact is [phone]. This note is constructed using voice recognition software. While every effort has been made to ensure accuracy rotary veneer machine operator errors may have been included. Yours sincerely, Dr Doug Macias MD, [facility] - Urology Providers of Expert, Compassionate Care for the Genitourinary System Telehealth Telehealth Location of provider rendering services: practice address Location of patient: address on file Patient Identification confirmed using: Name, : Yes Telehealth method: video Patient verbally consented to treatment: Yes Patient verbally consented to billing insurance company: Yes Patient informed of any privacy concerns related to visit: Yes Coding Level of Care Code Tele Est Pt Level 3 (99538) Diagnoses Elevated PSA R97.20 BPH (benign prostatic hyperplasia) N40.0
== END 2023-10-22 09:36 | disposition home or self-care (01) ==
LOC: HO.HUSH 08:41
PROVIDERS: PCP Internal Medicine; Visit Provider Urology
DX: R97.20 Elevated prostate specific antigen [PSA] (principal); N40.0 Benign prostatic hyperplasia without lower urinary tract symptoms
CPT/HCPCS: 99213

== ENCOUNTER → 2023-10-22 08:41 | Outpatient (BNVA) | payer OTHER, SELFPAY | PROVIDERS: PCP Internal Medicine; Visit Provider Urology ==

== ENCOUNTER 2023-12-15 06:28 | Day surgery (SDC) | payer OTHER, SELFPAY ==
[2023-12-11 13:35] VITALS: BMI 26.8
--- NOTE | 2023-12-14 10:57 | P.CONAN_ITS ---
Documented by User: Liliana Schofield NP 12/14/23 11:00 HPI - Anesthesia Eval Consult details Narrative: 63yo M for Upper Endoscopy with Balloon Dilitation Cardiac cleared. [facility] Active Problems Active Problems: All Active Problems NSVT (nonsustained ventricular tachycardia) (Acute) Aortic stenosis (Acute) HTN (hypertension) (Acute) SVT (supraventricular tachycardia) (Acute) Urinary retention with incomplete bladder emptying (Acute) BPH (benign prostatic hyperplasia) (Acute) Elevated PSA (Acute) Past Medical History Medical History Seasonal allergies BPH (benign prostatic hyperplasia) Elevated PSA GERD (gastroesophageal reflux disease) Family History Family history of problems with anesthesia: No Surgical History Surgical History History of prostate surgery Hx of nasal polypectomy History of left inguinal hernia repair Hx of colonoscopy History of esophagogastroduodenoscopy (EGD) History of Problems with Anesthesia: No Social History Social History Are you a primary adult care provider to a significant other at home: No Alcohol intake: current Alcohol intake frequency: holidays/special occasions only Patient Tobacco Use Status: Former Tobacco user Quit Date: 1982 Are you DNR?: No Advance Directives: No Advance Directives Information Provided: Yes Nutrition Risks: No Nutritional Risk Meds Allergies Allergy/AdvReac Type Severity Reaction Status Date / Time perflutren AdvReac Back Pain Verified 12/15/23 06:43 Home Medications ?Medication ?Instructions ?Recorded ?Confirmed ?Last Taken ?Type albuterol sulfate 90 mcg/actuation 90 mcg inhalation Q4H PRN Allergy 11/25/22 12/11/23 Unknown History aerosol inhaler Symptoms Exam Height,Weight and Vital Signs: Height 5 ft 11 in Weight 87.09 kg Narrative Narrative: ECHO 08/2023 Conclusions: - 1. Normal LV ejection fraction of 60 65% with impaired relaxation filling pattern 2. Calcific aortic valve changes noted with early mild aortic stenosis and mild aortic regurgitation 3. Mildly dilated left atrium 4. Normal RV systolic pressure 5. No gross pericardial effusion EKG 07/2023 normal sinus rhythm with left ventricular hypertrophy NM cardiolite stress test 08/2023 Impression: 1. No evidence of ischemia with fixed septal and apical defect suggestive of attenuation artifact. 2. Gated LVEF is 55% 3. Transient ischemic dilatation not present Stress EKG is suggestive of ischemia Cardiac MRI 09/2023 is within normal limits Assessment and Plan Assessment Anesthesia Assessment: Chart Reviewed Final Anesthetic Review Family History of Problems with Anesthesia: No History of Problems with Anesthesia: No Documented by User: Daphne Lambert MD 12/15/23 08:03 PMFSH Past Medical History Medical History Seasonal allergies BPH (benign prostatic hyperplasia) Elevated PSA GERD (gastroesophageal reflux disease) Surgical History Surgical History History of prostate surgery Hx of nasal polypectomy History of left inguinal hernia repair Hx of colonoscopy History of esophagogastroduodenoscopy (EGD) Social History Social History Are you a primary adult care provider to a significant other at home: No Alcohol intake: current Alcohol intake frequency: holidays/special occasions only Patient Tobacco Use Status: Former Tobacco user Quit Date: 1982 Are you DNR?: No Advance Directives: No Advance Directives Information Provided: Yes Nutrition Risks: No Nutritional Risk Meds Allergies Allergy/AdvReac Type Severity Reaction Status Date / Time perflutren AdvReac Back Pain Verified 12/15/23 06:43 Home Medications ?Medication ?Instructions ?Recorded ?Confirmed ?Last Taken ?Type albuterol sulfate 90 mcg/actuation 90 mcg inhalation Q4H PRN Allergy 11/25/22 12/11/23 Unknown History aerosol inhaler Symptoms Exam Airway Mallampati Class: III TM Dist: >3cm Neck ROM: Full Loose/Missing/Broken Teeth: No Heart: RRR Lungs: CTA Assessment and Plan Assessment Anesthesia Assessment: Anesthesia Plan Discussed Final Anesthetic Review NPO: Yes ASA Class: II Final Preanesthetic Review: Meds/Allgs Chart Reviewed, Consent Obtained/Reviewed and Anes Risks/Benef Reviewed Patient Risk: Low Procedure Risk: Intermediate Anesthetic Plan Anesthetic Plan: MAC: Disposition: Standard PACU
[2023-12-15 06:41] VITALS: BMI 27.2
[2023-12-15] MEDS: Lactated Ringers 1,000 ML 100 ML IVCONT (06:49)
[2023-12-15 06:53] VITALS: BP 163/84; PULSE 53; RESP 18; TEMP 36.6; O2SAT 99
[2023-12-15 08:00] VITALS: BP 125/77; PULSE 59; RESP 18; TEMP 36.2; O2SAT 99
--- NOTE | 2023-12-15 08:08 | P.BOP_ITS ---
Brief Operative Note Date of Service: 12/15/23 Pre-op diagnosis: Dysphagia Post-op diagnosis: other (Esophageal stricture) Procedure: EGD with Balloon dilation up to 18mm Surgeon: Neto Fam MD Anesthesia: MAC Was an Account Manager Sales Representative used for this Procedure?: No Estimated blood loss (mL): 2.0 Pathology: none sent Condition: stable Disposition: PACU
[2023-12-15 08:15] VITALS: BP 147/82; PULSE 46; RESP 18; TEMP 36.6; O2SAT 98
--- NOTE | 2023-12-15 08:16 | OP_ITS ---
DATE OF SERVICE: 12/15/2023 SURGEON: Neto Fam MD INDICATIONS: The patient presents for evaluation of dysphagia. Full consent obtained from him for this, including risks of bleeding and perforation. PREOPERATIVE DIAGNOSIS: Dysphagia. POSTOPERATIVE DIAGNOSIS: Dysphagia, distal esophageal stricture, hiatal hernia. PROCEDURE PERFORMED: Esophagogastroduodenoscopy with balloon dilation of distal esophageal stricture. ESTIMATED BLOOD LOSS: COMPLICATIONS: ANESTHESIA: Monitored anesthesia care. ASSISTANTS: SPECIMENS: DESCRIPTION OF PROCEDURE: The patient was placed in the left lateral decubitus position. The Olympus video gastroscope was passed into the posterior oropharynx and upper esophagus under direct vision. The scope was passed slowly into the distal esophagus. The gastroesophageal junction appeared at 35 cm. This area was notable for a circumferential fibrotic appearing stricture with some surrounding erythema and edema. There was no ulceration nor mass. With some gentle pressure, the scope easily popped into the stomach. There was a small hiatal hernia. The scope was advanced to the pylorus and the duodenum was cannulated to the descending portion. The duodenum including the bulb appeared normal without mass or ulceration. The scope was withdrawn back to the stomach. The gastric antrum body appeared normal with good peristalsis. Scope was retroflexed visualizing the proximal stomach carefully which appeared normal, without any sign of mass or ulceration. The scope was straightened and withdrawn back to the esophagus. I did use a [employer] incremental balloon to dilate the esophageal stricture from 15 mm to 16.5 mm to 18 mm at the recommended pressure for up to 60 seconds each. Post dilation, the stricture was clearly disrupted with some heme noted. The scope was passed into the stomach on a much easier basis than previous. The scope was then withdrawn through the remainder of the esophagus, which appeared normal. The scope was withdrawn from the patient. He tolerated the procedure well and was returned to recovery area in stable condition. IMPRESSION: 1. Distal esophageal stricture. 2. Hiatal hernia. PLAN: Given these findings, I shall start him on omeprazole 40 mg daily. I did advise him to continue that long-term for the time being. He was advised to resume his aspirin in 48 hours. He will see me later in the year for a followup visit. He was advised to call sooner if the dysphagia either persists or recurs. This has been discussed with his . MD STUART Cardona/SANJU / [phone]
== END 2023-12-15 08:48 | disposition home or self-care (01) ==
PROVIDERS: PCP Internal Medicine; Visit Provider Internal Medicine
PROC: (CPT 43249; principal; 2023-12-15 07:30)
DX: K22.2 Esophageal obstruction (principal); K44.9 Diaphragmatic hernia without obstruction or gangrene
CPT/HCPCS: 43249; C1726; J2704

== ENCOUNTER 2024-02-29 08:21 | Outpatient (AMB) | payer OTHER, SELFPAY ==
[2024-02-29 08:27] VITALS: BP 122/80; PULSE 55; BMI 27.1
--- NOTE | 2024-02-29 08:27 | A.OFFVIS_ITS ---
Vital Signs 02/29/24 08:27 Height 5 ft 11 in Weight 194 lb 0.108 oz BMI 27.1 BP 122/80 Blood Pressure Location Lt brachial Position Sitting Pulse 55 Intake Visit Reasons: 6 mth f/up Intake Note: 6 month follow-up feeling good Apprentice Funeral Director Required: No Thermoscrew Operator: Thermoscrew Operator Present Accompanied by: Spouse Allergies perflutren Adverse Reaction (Verified 12/15/23 06:43) Back Pain Medication List - Last Reconciled 02/29/24 by Jeff Reyes MD albuterol sulfate 90 mcg/actuation 90 mcg inhalation Q4H PRN aspirin 81 mg PO DAILY metoprolol succinate ER (Toprol XL) 100 mg PO DAILY HPI Comments Details: Andrez comes for follow-up. He complains of intermittent episodes of palpitations where he felt strong heartbeat but when he does not focus on the symptoms dissipate. He also gets symptoms of dizziness where he feels like the disequilibrium not related to the pounding in his chest. He denies any exertional chest pain or shortness of breath. Generally doing well. Denies any prolonged palpitations or syncopal episodes. [facility] Medical History Seasonal allergies BPH (benign prostatic hyperplasia) Elevated PSA GERD (gastroesophageal reflux disease) Surgical History History of prostate surgery Hx of nasal polypectomy History of left inguinal hernia repair Hx of colonoscopy History of esophagogastroduodenoscopy (EGD) Social History Are you a primary career development associate to a significant other at home: No Alcohol intake: current Alcohol intake frequency: holidays/special occasions only Patient Tobacco Use Status: Former Tobacco user Review of Systems Const Denies chills, Denies fatigue, Denies fever(s), Denies frequent falls, Denies weakness, Denies weight gain and Denies weight loss ENT Denies dizziness Card Denies chest pain, Denies leg edema, Denies lightheadedness, Denies palpitations, Denies dyspnea, Denies dyspnea on exertion, Denies orthopnea and Denies other (loss of consciousness) Resp Denies cough, Denies dyspnea and Denies dyspnea on exertion GI Denies hematochezia and Denies change in stool character Musc Denies abnormal gait, Denies muscle weakness, Denies numbness, Denies radiating pain into limb and Denies tingling Neuro Denies Abnormal speech present, Denies abnormal gait, Denies dizziness, Denies frequent falls, Denies numbness, Denies tingling and Denies weakness Endo Denies fatigue and Denies palpitations Physical Exam Vital Signs: Last Vital Signs Pulse 55 02/29/24 08:27 BP 122/80 02/29/24 08:27 BMI result Body Mass Index 27.1 Const General: cooperative, comfortable, no acute distress, alert, awake, Physically active and anxious Nutritional Appearance: average body habitus Orientation/consciousness: patient oriented x3 Limitations: no limitations Neck Neck: Yes trachea midline, Yes supple and Yes no JVD Resp Effort & Inspection: normal respiratory effort Auscultation: clear to auscultation bilaterally Cardio Jugular venous distension: no JVD Palpation: normal PMI Rate: regular rate Rhythm: regular rhythm Heart sounds: S1 normal heart sound present, S2 normal heart sound present, no click, no gallops, Murmur heart sound present systolic early and no rubs GI Auscultation: normal bowel sounds Skin General skin exam: no rashes or lesions noted Neuro General: patient oriented x3 and no focal motor deficits Speech: No Abnormal speech present Extrem General: Yes no clubbing, cyanosis or edema Psych Affect: Anxious affect present Assessment & Plan Assessment & Plan (1) NSVT (nonsustained ventricular tachycardia): Code(s): I47.29 - Other ventricular tachycardia Category: Medical Plan: Nonsustained ventricular tachycardia with normal structure of the heart with no evidence of infiltrative cardiac disorder on cardiac MRI with no evidence of ischemia. At current point time will continue to treat with metoprolol therapy. Does not have any concerning symptoms at current point in time. We discussed about avoiding stimulants. Advised to call me with any new symptoms. Goals of therapy were discussed. Follow-up in 1 year's time. (2) SVT (supraventricular tachycardia): Code(s): I47.10 - Supraventricular tachycardia, unspecified Category: Medical Plan: Prior SVT with some symptoms suggestive of SVT but they are not very concerning or long-lasting. Continue avoid stimulants above. Continue metoprolol therapy. Vagal maneuvers were discussed. (3) Aortic stenosis: Code(s): I35.0 - Nonrheumatic aortic (valve) stenosis Category: Medical Plan: Early mild aortic stenosis. No clinical significance at this point time. Currently not having any symptoms and should not cause any symptoms. Gradual progressive nature of aortic stenosis were discussed. Continue low-dose aspirin therapy. Consider targeting a goal LDL less than 100 mg/dL. Blood pressure is well optimized at this point time. Follow-up echocardiogram in 1 year's time. Thank you for allowing me to partake in the care Coding Level of Care Code Est Pt Level 4 (62291) Diagnoses NSVT (nonsustained ventricular tachycardia) I47.29 SVT (supraventricular tachycardia) I47.10 Aortic stenosis I35.0
== END 2024-02-29 08:50 | disposition home or self-care (01) ==
PROVIDERS: PCP Internal Medicine; Visit Provider Internal Medicine Cardiovascular Disease
DX: I47.29 Other ventricular tachycardia (principal); I47.10 Supraventricular tachycardia, unspecified; I35.0 Nonrheumatic aortic (valve) stenosis
CPT/HCPCS: 99214

== ENCOUNTER → 2024-02-29 08:21 | Outpatient (BNVA) | payer OTHER, SELFPAY | PROVIDERS: PCP Internal Medicine; Visit Provider Internal Medicine Cardiovascular Disease ==

== ENCOUNTER 2024-04-19 14:19 | Outpatient (REF) | payer OTHER, SELFPAY ==
[2024-04-19 17:23] LABS: PSA,Total (Free>4and<10) 5.81 ng/mL (0.00-4.00); Prostate Specific Antigen 5.93 ng/mL (<0.05-4.0)
[2024-04-20 11:08] LABS: Percent Free Prostate Spec Ag 16 % (calc) (>25); Prostate Specific Ag Total 6.1 ng/mL (< OR = 4.0)
== END 2024-04-19 14:20 | disposition home or self-care (01) ==
LOC: HO.HMGCLDS 14:19
PROVIDERS: PCP Internal Medicine; Visit Provider Urology
DX: R97.20 Elevated prostate specific antigen [PSA] (principal); Z12.5 Encounter for screening for malignant neoplasm of prostate
CPT/HCPCS: 36415; 84153; 84154

== ENCOUNTER 2024-04-26 09:16 | Outpatient (AMB) | payer OTHER, SELFPAY ==
--- NOTE | 2024-04-26 09:31 | A.OFFVIS_ITS ---
Intake Visit Reasons: 6M Follow Up-PSA/PVR(set) Intake Note: Patient presents today for a 6M PSA/PVR follow-up Meds- None Allergies to Antibiotic- No Known Allergies Blood Thinner- Aspirin TODAY'S PVR:0ML'S Head Animal Keeper Required: No Allergies perflutren Adverse Reaction (Verified 04/26/24 09:32) Back Pain Medication List - Last Reconciled 04/26/24 by Doug Macias MD albuterol sulfate 90 mcg/actuation 90 mcg inhalation Q4H PRN aspirin 81 mg PO DAILY metoprolol succinate ER (Toprol XL) 100 mg PO DAILY HPI Comments Details: Kameron is a very pleasant male. He is a patient of Dr. Joyce. He is seen for the following urologic condition - elevated PSA - episode of urinary retention Six-month follow-up PCP T Risk calculator with 7% chance of high-grade prostate cancer We will continue to follow acute six-month Urinary stream, feeling empty, nocturia 1-2 Prior 03/25 [facility] - Pathology chronic inflammation. Copy provided Recent viral illness with cardiac implications 10/24 5.3 F 14% off medications 04/26 6.1 16% Elevated PSA/LUTS Episode of urinary retention October 2022 Found to have elevated PSA on regular follow-up with PCP Initial therapy trial of finasteride - Improvement of frequency and weakness of stream with finasteride Intervention - 03/25 [facility] laser prostatectomy - pathology chronic inflammation PSA - 12/21 5.9, 05/23 3.8, 11/22 2.7, 11/23 10.53, 02/21 4.3 12%, 10/24 5.3 F 14% Plan to continue with interval surveillance [facility] Medical History Seasonal allergies BPH (benign prostatic hyperplasia) Elevated PSA GERD (gastroesophageal reflux disease) Surgical History History of prostate surgery Hx of nasal polypectomy History of left inguinal hernia repair Hx of colonoscopy History of esophagogastroduodenoscopy (EGD) Social History Are you a primary primary care sales representative to a significant other at home: No Alcohol intake: current Alcohol intake frequency: holidays/special occasions only Patient Tobacco Use Status: Former Tobacco user Review of Systems Const Denies chills and Denies fever(s) Card Reports no additional complaints and Denies syncope Resp Denies cough GI Denies abdominal pain and Denies heartburn Reports as per HPI and Denies change in libido Neuro Denies syncope Psych Denies change in libido Endo Denies change in libido Physical Exam Const General: cooperative, healthy appearing, comfortable and no acute distress Orientation/consciousness: patient oriented x3 HEENT Face and sinus: Yes normal facial exam Mouth: moist mucous membranes Neck Neck: Yes normal visual inspection, Yes full ROM and Yes trachea midline Chest Chest palpation & inspection: normal inspection of the chest Resp Effort & Inspection: normal respiratory effort, able to speak in complete sentences and no respiratory distress GI Inspection: Yes normal to inspection Back/Spine/Pelvis Cervical Spine: normal cervical lordosis Thoracic/Lumbar Spine: thoracic and lumbar spine normal to inspection Skin General skin exam: no rashes or lesions noted Neuro General: patient oriented x3, gait normal, tone normal and moves all extremities Extrem General: Yes normal to inspection and Yes capillary refill normal Office Procedures Post Void Residual Post Residual Void Post Void Residual (PVR): 0 [id number]-[id number] Void Residual by ultrasound Results AMB Urinalysis, Automated UA Leukoctes 0 Richard/uL Last Edit by MARLENY Bowling on 04/26/24 09:42 UA Nitrite Negative Last Edit by MARLENY Bowling on 04/26/24 09:42 UA Urobilinogen 0.2 mg/dL Last Edit by MARLENY Bowling on 04/26/24 09:4 2 UA Protein 0 mg/dL Last Edit by MARLENY Bowling on 04/26/24 09:42 UA pH 5.5 Last Edit by MARLENY Bowling on 04/26/24 09:42 UA Blood 0 Marvin/uL Last Edit by MARLENY Bowling on 04/26/24 09:42 UA Specific [place] 1.030 Last Edit by Leela Garcia CCM on 04/26/24 09: 42 UA Ketone Negative Last Edit by MARLENY Bowling on 04/26/24 09:42 UA Bilirubin 0 mg/dL Last Edit by MARLENY Bowling on 04/26/24 09:42 UA Glucose 0 mg/dL Last Edit by MARLENY Bowling on 04/26/24 09:42 Results Reviewed Results Reviewed: Laboratory Last Values Urine pH (Auto) 5.5 04/26/24 09:41 Specific [place] (Auto) 1.030 04/26/24 09:41 Urine Protein (Auto) 0 mg/dL 04/26/24 09:41 Glucose (UA)(Auto) 0 mg/dL 04/26/24 09:41 Urine Ketones (Auto) Negative 04/26/24 09:41 Urine Blood (Auto) 0 Marvin/uL 04/26/24 09:41 Urine Nitrite (Auto) Negative 04/26/24 09:41 Urine Bilirubin (Auto) 0 mg/dL 04/26/24 09:41 Urine Urobilinogen (Auto) 0.2 mg/dL 04/26/24 09:41 Leukocyte Esterase (Auto) 0 Richard/uL 04/26/24 09:41 Assessment & Plan Assessment & Plan (1) BPH (benign prostatic hyperplasia): Code(s): N40.0 - Benign prostatic hyperplasia without lower urinary tract symptoms Category: Medical (2) Elevated PSA: Code(s): R97.20 - Elevated prostate specific antigen [PSA] Category: Medical (3) Urinary retention with incomplete bladder emptying: Code(s): R33.9 - Retention of urine, unspecified Category: Medical Plan Six-month follow-up PSA tele Orders: Orders Prostate Specific Antigen 04/19/24 R97.20 - Elevated prostate specific antigen [PSA] Prostate Specific Antigen 6 Months R97.20 - Elevated prostate specific antigen [PSA] AMB Urinalysis Automated Today Z13.9 - Encounter for screening, unspecified Patient Instructions: Imaging studies, laboratory and physical exam results were discussed and reviewed in detail. No major barriers to patient understanding were identified. An opportunity to ask questions regarding the treatment plan was provided. All questions were answered. The patient expressed understanding and agreement with the above treatment plan. The patient is aware they should contact our office by phone for worsening of their current condition or the appearance of new urologic symptoms. Compliance is encouraged with any medications and followup testing that is ordered. It is a privilege to participate in the urologic care of your patient. If you have any questions or concerns regarding treatment for the above conditions, or other urologic issues, please do not hesitate to contact me. The office telephone contact is [phone]. This note is constructed using voice recognition software. While every effort has been made to ensure accuracy desktop architect errors may have been included. Yours sincerely, Dr Doug Macias MD, [facility] - Urology Providers of Expert, Compassionate Care for the Genitourinary System Coding Level of Care Code Est Pt Level 3 (09068) Diagnoses BPH (benign prostatic hyperplasia) N40.0 Elevated PSA R97.20 Urinary retention with incomplete bladder emptying R33.9 CPT Codes Post Residual Void - PVR CPT Code: 84880-Gnkj Void Residual by ultrasound ([id number])
== END 2024-04-26 09:56 | disposition home or self-care (01) ==
PROVIDERS: PCP Internal Medicine; Visit Provider Urology
DX: N40.0 Benign prostatic hyperplasia without lower urinary tract symptoms (principal); R97.20 Elevated prostate specific antigen [PSA]; R33.9 Retention of urine, unspecified; Z13.9 Encounter for screening, unspecified
CPT/HCPCS: 99213

== ENCOUNTER → 2024-04-26 09:16 | Outpatient (BNVA) | payer OTHER, SELFPAY | PROVIDERS: PCP Internal Medicine; Visit Provider Urology | DX: R97.20 Elevated prostate specific antigen [PSA] (principal); N40.1 Benign prostatic hyperplasia with lower urinary tract symptoms; R33.8 Other retention of urine | CPT/HCPCS: 51798; 81003 ==

== ENCOUNTER 2024-05-13 16:36 | Outpatient (REF) | payer OTHER, SELFPAY ==
--- NOTE | ~2024-05-13 | XR_ITS ---
EXAMINATION: XR SHOULDER, RIGHT CLINICAL INFORMATION: Right shoulder pain. COMPARISON: None available. TECHNIQUE: AP external rotation, Grashey, scapular Y, and axillary views of the right shoulder. FINDINGS: Moderate degenerative changes in the acromioclavicular joint with joint space narrowing and hypertrophic change. Amorphous calcifications along the superolateral aspect of the humeral head. Additional scattered faint amorphous calcifications are seen along superior aspect of the glenoid. Elongated, curvilinear soft tissue calcification just inferior to the [id number] portion of the glenoid, possibly just superior to the coracoid. XR/XR shoulder RT min 2V IMPRESSION: 1. Moderate degenerative changes in the acromioclavicular joint. 2. Multiple soft tissue calcifications as detailed above Electronically signed by: Ambika Arredondo MD 05/31/2024 05:31 AM EDT
== END 2024-05-13 16:37 | disposition home or self-care (01) ==
LOC: HO.XRAY 16:36
PROVIDERS: PCP Internal Medicine; Visit Provider Internal Medicine
DX: M25.551 Pain in right hip (principal)
CPT/HCPCS: 73030

== ENCOUNTER 2024-06-06 06:16 | Outpatient (REF) | payer OTHER, SELFPAY ==
[2024-06-06 10:07] LABS: MANUAL DIFF FLAG NO
[2024-06-06 10:18] LABS: Basophils Absolute Auto 0.1 X10*3/uL (0.0-0.2); Eosinophils Absolute Auto 0.3 X10*3/uL (0.0-0.4); Eosinophils Percent Auto 5.5 % (0-4); Hematocrit 47.5 % (42.0-52.0); Hemoglobin 16.7 g/dl (14.0-18.0); Imm Gran Abs Auto 0.01 X10*3/uL (0.00-0.03); Imm Gran Pct Auto 0.2 % (0.0-0.4); Lymphocytes Absolute Auto 1.9 X10*3/uL (1.2-4.9); Lymphocytes Percent Auto 32.7 % (20-40); Mean Corpuscular HGB Conc 35.2 g/dl (31.0-36.0); Mean Corpuscular Hemoglobin 33.6 pg (27.0-33.0); Mean Corpuscular Volume 95.6 fL (80.0-98.0); Mean Platelet Volume 11.2 fL (9.4-12.4); Monocytes Absolute Auto 0.6 X10*3/uL (0.1-1.2); Monocytes Percent Auto 9.5 % (2-11); Neutrophils Percent Auto 51.1 % (45-73); Platelet Count 163 X10*3/uL (160-400); Red Blood Count 4.97 X10*6/uL (4.60-5.80); Red Cell Distribution Width 12.7 % (11.0-16.0); White Blood Count 5.8 X10*3/uL (4.8-10.8)
[2024-06-06 10:43] LABS: Alanine Aminotransferase 22 U/L (0-40); Albumin Level 3.9 g/dL (3.5-5.0); Alkaline Phosphatase 41 U/L (39-117); Anion Gap 12 (12-20); Aspartate Amino Transferase 29 U/L (5-37); Bilirubin Total 1.2 mg/dL (0.0-1.0); Blood Urea Nitrogen 24 mg/dL (9-16); Calcium 9.9 mg/dL (8.4-10.2); Carbon Dioxide 29 mmol/L (22-29); Chloride 105 mmol/L (96-108); Cholesterol 174 mg/dL (<200); Estimated Glomerular Filt Rate > 60; Glucose Fasting 96 mg/dL (60-99); HDL Cholesterol 47 mg/dL (>40); LDL Cholesterol Calculated 99 mg/dL (<100); Potassium 4.3 mmol/L (3.3-5.1); Sodium 142 mmol/L (135-145); Triglycerides 142 mg/dL (<150)
[2024-06-06 11:23] LABS: Prostate Specific Antigen Scr 5.58 ng/mL (<0.05-4.0)
== END 2024-06-06 06:17 | disposition home or self-care (01) ==
LOC: HO.HMGCLDS 06:16
PROVIDERS: PCP Internal Medicine; Visit Provider Internal Medicine
DX: K57.90 Diverticulosis of intestine, part unspecified, without perforation or abscess without bleeding (principal); K21.9 Gastro-esophageal reflux disease without esophagitis; Z12.5 Encounter for screening for malignant neoplasm of prostate
CPT/HCPCS: 36415; 80053; 80061; 84153; 85025

== ENCOUNTER 2024-06-07 13:51 | Outpatient (REF) | payer OTHER, SELFPAY ==
[2024-06-07 16:16] LABS: Appearance Urine Clear; Color Urine Dark Yellow; Glucose Urine UA Negative (Negative); Leukocyte Esterase Urine Negative (Negative); Nitrite Urine Negative (Negative); Specific Gravity - Urine >= 1.030 (1.005-1.025); UMIC TRIGGER UACC YES; Urine Blood Negative (Negative); Urine Ketones Trace mg/dL (Negative); Urine Protein 30 (1+) mg/dL (Neg-Trace)
[2024-06-07 16:23] LABS: Bacteria Urine None Seen (None Seen); Hyaline Casts Urine 0-2 /LPF (0-2); RBC Urine 0-2 /HPF (0-2); Squamous Epithelial Cell Urine 0-2 /HPF (0-2); WBC Urine 0-5 /HPF (0-5)
== END 2024-06-07 13:52 | disposition home or self-care (01) ==
LOC: HO.HMGCLDS 13:51
PROVIDERS: PCP Internal Medicine; Visit Provider Internal Medicine
DX: R30.0 Dysuria (principal)
CPT/HCPCS: 81001; 87086

== ENCOUNTER 2024-10-14 12:40 | Outpatient (REF) | payer OTHER, SELFPAY ==
--- OUTSIDE RECORDS SUMMARY | 2024-10-14 14:13 | XMS_ITS ---
Author Organization [facility] Address [address] [place] [address] Care Team Providers Care Carpenter Inspector Name Role Phone Harsha Joyce MD Primary Care Provider Neto Tyler Unavailable [phone] Allergies No Known Allergies REASON FOR VISIT Patient presents today for DYSPHAGIA Medications Medication SIG (Take, Route, Frequency, Duration) Notes Start Date End Date Status Omeprazole 20 MG 1 Orally Once a day every morning for 90 days Active Metoprolol Succinate ER 100 MG Oral for 90 Active Aspirin Low Dose 81 MG Oral for 90 Active Omeprazole 40 MG 1 capsule Orally Danielle ry morning for 90 days 12/15/2023 Active Social History Alcohol Screen Question Answer Notes Did you have a drink contain ing alcohol in the past year? Yes How often did you have a dri nk containing alcohol in the past year? 2 to 3 times a week (3 points) How many drinks did you have on a typical day when you were drinking in the past year? 1 or 2 drinks (0 point) How often did you have 6 or more drinks on one occasion in the past year? Never (0 point) Points 3 Interpretation Negative Section Notes: Nonsmoker; 2-4 beers occasio sylvester Problems Problem Type SNOMED Code ICD Code Onset Dates Problem Status W/U Status Risk Notes Problem Benign esophageal stricture (230136840) Benign esophageal stricture (K22.2) Active confirmed Problem Gastroesophageal reflux disease (disorder) (541230940) Chronic GERD (K21.9) Active confirmed Vital Signs Blood pressure systolic 00 mm Hg 05/17/20 24 Blood pressure diastolic 00 mm Hg 024 Height 71 in 05/17/2024 Weight 201 lbs 05/17/2024 BMI 28.03 kg/m2 05/17/2024 Encounters Encounter Location Date Provider Diagnosis [facility] [address] [facility] [address] [place] [address] 05/17/2024 Neto Fam Benign esophageal stricture K22.2 and Chronic GERD K21.9 Assessments Encounter Date Diagnosis (ICD Code) Assessment Notes Treatment Notes Treatment Clinical Notes Section Notes 05/17/2024 Benign esophageal stricture (ICD-10 - K22.2) Overall, Kameron appears quite well and has responded very nicely to the esophageal dilation and acid suppression in regard to his previous swallowing and reflux issues. I did review the endoscopy findings with him. I advised him that at this point I will change him to omeprazole 20 mg daily for continued acid suppression and to hopefully avoid recurrence of the esophageal stricture. However, I did advise him to go back to the 40 mg if he begins having more frequent episodes of heartburn again. I also advised him to let me know if he develops recurrent dysphagia in which case he might need a repeat dilation. We also reviewed that he we also reviewed that he will be due for a followup screening colonoscopy in 2030. At this point, if things remain well, he will see me on a p.r.n. basis. Kameron was comfortable with this plan. Thank you again for allowing me to participate in Kameron's care. I shall continue to keep you advised of his progress as needed. 05/17/2024 Chronic GERD (ICD-10 - K21.9) Overall, Kameron appears quite well and has responded very nicely to the esophageal dilation and acid suppression in regard to his previous swallowing and reflux issues. I did review the endoscopy findings with him. I advised him that at this point I will change him to omeprazole 20 mg daily for continued acid suppression and to hopefully avoid recurrence of the esophageal stricture. However, I did advise him to go back to the 40 mg if he begins having more frequent episodes of heartburn again. I also advised him to let me know if he develops recurrent dysphagia in which case he might need a repeat dilation. We also reviewed that he we also reviewed that he will be due for a followup screening colonoscopy in 2030. At this point, if things remain well, he will see me on a p.r.n. basis. Kameron was comfortable with this plan. Thank you again for allowing me to participate in Kameron's care. I shall continue to keep you advised of his progress as needed. 05/17/2024 Other You can go back to the 40mg omeprazole if needed for increased heartburn. Call me if the swallowing worsens. Repeat colonoscopy in 2030. Overall, Kameron appears quite well and has responded very nicely to the esophageal dilation and acid suppression in regard to his previous swallowing and reflux issues. I did review the endoscopy findings with him. I advised him that at this point I will change him to omeprazole 20 mg daily for continued acid suppression and to hopefully avoid recurrence of the esophageal stricture. However, I did advise him to go back to the 40 mg if he begins having more frequent episodes of heartburn again. I also advised him to let me know if he develops recurrent dysphagia in which case he might need a repeat dilation. We also reviewed that he we also reviewed that he will be due for a followup screening colonoscopy in 2030. At this point, if things remain well, he will see me on a p.r.n. basis. Kameron was comfortable with this plan. Thank you again for allowing me to participate in Kameron's care. I shall continue to keep you advised of his progress as needed. Plan Of Treatment Medication Medication Name Sig Start Date Stop Date Notes Omeprazole 20 MG 1 Orally Once a day every morning for 90 days Treatment Notes Assessment Notes Other You can go back to the 40mg omeprazole if needed for increased heartburn. Call me if the swallowing worsens. Repeat colonoscopy in 2030. Next Appt Details Follow Up: prn, Reason: Progress Notes * ROSMERY LEONE EDOB:1959 (64 yo M)Acc No.[id number]:05/17/2024 Progress Notes Patient:?VASU ROSMERY Ruby Provider:?Neto Fam MD :1960???Age:64 Y???Sex:Male Jason e:05/17/2024 Address:[address] [place] [address] [id number] Pcp:Harsha Joyce MD Subjective: * Chief Complaints: * ???Patient presents today fo r DYSPHAGIA * HPI: ???incontinence:? I saw Kameron in followup today in regard to his previous history of dysphagia and reflux with the finding of an esophageal stricture. ?I last saw Kameron in December, at which time he underwent an upper endoscopy. This revealed a small hiatal hernia and a mild distal esophageal stricture that was dilated up to an 18 mm balloon. There was no evidence for esophagitis nor Fleming's esophagus. At that time I also started him on omeprazole 40 mg daily. Since then he has been feeling very well and he has had no further issues with dysphagia nor heartburn. In retrospect he had been having a fair amount of heartburn both during the day and night. He is able to eat everything comfortably. He denies any abdominal pain, jaundice, nor weight loss. His bowel movements remain regular and without any signs of bleeding. * ROS:?General/Constitutional:?Change in appetite?denies.?Chills?denies.?Fatigue?denies.?Ophthalmologic:?Comments?all negative.?ENT:?Comments?all negative.?Respiratory:?hemoptysis?denies.?Cough?denies.?Cardiovascular:?Chest pain?denies.?Orthopnea?denies.?Gastrointestinal:?Comments?See HPI for details.?Genitourinary:?Hematuria?denies.?Dysuria?denies.?Musculoskeletal:?Painful joints?denies.?Weakness?denies.?Skin:?Itching?denies.?Rash?denies.?Neurologic:?Headache?denies.?Seizures?denies.?Psychiatric:?Comments?all negative.? * Medical History:? * Surgical History:?Nasal poly ps Hernia-left inguinal Prostate reduction surgery Dr. Macias 03/2023 * Hospitalization/Major Diagno stic Procedure:?No Hospitalization History. * Family History:?Father: dece ased.?Mother: .? No known hx of colon cancer. * Social History:?Tobacco Use:?Tobacco Use/Smoking?Are you a: former smoker , How long has it been since you last smoked?: > 10 years.?Drugs/Alcohol:?Alcohol Screen?Did you have a drink containing alcohol in the past year??Yes,?How often did you have a drink containing alcohol in the past year??2 to 3 times a week (3 points),?How many drinks did you have on a typical day when you were drinking in the past year??1 or 2 drinks (0 point),?How often did you have 6 or more drinks on one occasion in the past year??Never (0 point),?Points?3,?Interpretation?Negative.?Miscellaneous:?Marital status: . 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 ???Nonsmoker; 2-4 beers occasionally. * Medications:?TakingMetoprolo l Succinate ER 100 MG Tablet Extended Release 24 Hour Oral Aspirin Low Dose 81 MG Tablet Delayed Release Oral Omeprazole 40 MG Capsule Delayed Release 1 capsule Orally Every morningMedication List reviewed and reconciled with the patientTaking Metoprolol Succinate ER 100 MG Tablet Extended Release 24 Hour Oral Taking Aspirin Low Dose 81 MG Tablet Delayed Release Oral Taking Omeprazole 40 MG Capsule Delayed Release 1 capsule Orally Every morningMedication List reviewed and reconciled with the patient * Allergies:?N.K.D.A.yes[Aller gies Verified] Objective: * Vitals:?Wt: 201 lbs, Ht: 71 in, BMI:28.03 Index, BP: 00/00 mm Hg. * Examination: ???General Examination: ?GENERAL APPEARANCE:?pleasant, well nourished, well developed, in no acute distress.?EYES:?sclera non-icteric.?ORAL CAVITY:?mucosa moist.?NECK/THYROID:?no cervical lymphadenopathy, neck supple.?SKIN:?nonjaundiced, no spider angiomata.?HEART:?S1, S2 normal.?LUNGS:?clear to auscultation bilaterally.?ABDOMEN:?normal bowel sounds, no guarding or rigidity, no guarding or rigidity, no masses palpable, soft, nontender, nondistended.?EXTREMITIES:?no edema.?NEUROLOGIC:?alert and oriented.? Assessment: * Assessment: 1.?Benign esophageal strictu re - K22.2 (Primary)?2.?Chronic GERD - K21.9? Overall, Kameron appears quite w ell and has responded very nicely to the esophageal dilation and acid suppression in regard to his previous swallowing and reflux issues. I did review the endoscopy findings with him. I advised him that at this point I will change him to omeprazole 20 mg daily for continued acid suppression and to hopefully avoid recurrence of the esophageal stricture. However, I did advise him to go back to the 40 mg if he begins having more frequent episodes of heartburn again. I also advised him to let me know if he develops recurrent dysphagia in which case he might need a repeat dilation. We also reviewed that he we also reviewed that he will be due for a followup screening colonoscopy in 2030. At this point, if things remain well, he will see me on a p.r.n. basis. Kameron was comfortable with this plan. Thank you again for allowing me to participate in Kameron's care. I shall continue to keep you advised of his progress as needed. Plan: * Treatment: * Procedure Codes:?3017F COLOR ECTAL CA SCREEN DOC [id number] TOBACCO [id number] BP SCR NOT PRFRM REC REASON NOS * Preventive Medicine:? ??Counseling:?Care goal follow-up plan:?Above Normal BMI Follow-up?Giving encouragement to exercise,?BMI management provided?Yes.? ??Screenings:?Fall Risk Screening?Fall Risk Assessment:?No falls in the past year,?Screening:?No falls in the past year,?Assessment:?Not performed, no reason specified,?Plan of Care:?Not documented, no reason specified.? * Follow Up:?prn * * Sign off status: Completed true * Provider:?Neto Fam MD Date:? 024 Generated for Krupa cannon/Erik/Forrestitting on:?10/14/2024 02:12 PM EDT History and Physical Notes * HPI (History of Present Illness) Category Sub-Category Detail Notes Category Not es incontinence I saw Kameron in followup today in regard to his previous history of dysphagia and reflux with the finding of an esophageal stricture. I last saw Kameron in December, at which time he underwent an upper endoscopy. This revealed a small hiatal hernia and a mild distal esophageal stricture that was dilated up to an 18 mm balloon. There was no evidence for esophagitis nor Fleming's esophagus. At that time I also started him on omeprazole 40 mg daily. Since then he has been feeling very well and he has had no further issues with dysphagia nor heartburn. In retrospect he had been having a fair amount of heartburn both during the day and night. He is able to eat everything comfortably. He denies any abdominal pain, jaundice, nor weight loss. His bowel movements remain regular and without any signs of bleeding. Examination Category Sub-Category Detail Notes Category Not es General Examination GENERAL APPEARANCE: pleasant , well nourished, well developed, in no acute distress HEAD: EYES: sclera non-icteric EARS: NOSE: THROAT: NECK/THYROID: no cervical lymphade nopathy, neck supple HEART: S1, S2 normal CHEST: LUNGS: clear to auscultatio n bilaterally ABDOMEN: normal bowel sounds, no guarding or rigidity, no guarding or rigidity, no masses palpable, soft, nontender, nondistended NEUROLOGIC: alert and oriented SKIN: nonjaundiced, no spi radha angiomata EXTREMITIES: no edema PERIPHERAL PULSES: BACK: BREASTS: MUSCULOSKELETAL: MALE GENITOURINARY: LYMPH NODES: RECTAL EXAM: FEMALE GENITOURINARY: ORAL CAVITY: mucosa moist
--- OUTSIDE RECORDS SUMMARY | 2024-10-14 14:13 | XMS_ITS ---
Author Organization [facility] Address [address] [place] [phone] Care Team Providers Care Work Distributor Name Role Phone Harsha Joyce MD Primary Care Provider Neto Tyler [phone] REASON FOR VISIT schedule f/u with Dr. Fam No [place] Encounters Encounter Location Date Provider Diagnosis [facility] [address] [place] [phone] 12/22/2023 Neto Fam Plan Of Treatment No Information Progress Notes * ROSMERY LEONE EDOB:1959 (63 yo M)Acc No.[id number]:12/22/2023 Patient:?ROSMERY LEONE :1960???Age:63 Y???Sex:Male Address:[address] [place] [address] [place] [address] * true * Date:? Generated for Apolinari davis/Erik/eTransmitting on:?10/14/2024 02:12 PM EDT
--- OUTSIDE RECORDS SUMMARY | 2024-10-14 14:13 | XMS_ITS | Patient Health Record ---
Author Organization [facility] Address [address] [place] [address] Care Team Providers Care Cash Management Officer Name Role Phone Harsha Joyce MD Primary Care Provider Neto Tyler Unavailable [phone] Allergies No Known Allergies Reason For Referral No Information Medications Medication SIG (Take, Route, Frequency, Duration) Notes Start Date End Date Status Omeprazole 20 MG 1 Orally Once a day every morning for 90 days Active Metoprolol Succinate ER 100 MG Oral for 90 Active Aspirin Low Dose 81 MG Oral for 90 Active Omeprazole 40 MG 1 capsule Orally Danielle ry morning for 90 days 12/15/2023 Active Immunizations Vaccine Route Administration Date Status Comme nts Influenza Unknown 03/21/2021 Refused Social History Alcohol Screen Question Answer Notes [...] Interpretation Negative Section Notes: Nonsmoker; 2-4 beers daily Nonsmoker; 2-4 beers occasio sylvester Nonsmoker; 2-4 beers occasio sylvester Nonsmoker; 2-4 beers occasio sylvester Problems Problem Type SNOMED Code ICD Code Onset Dates Problem Status W/U Status Risk Notes Problem [id number] Encounter for screening for malignant neoplasm of colon (Z12.11) Active confirmed Problem Dysphagia (86155367) Dysphagia (R13.10) Active confirmed Problem Stricture of esophagus (46645421) Esophageal obstruction (K22.2) Active confirmed Problem 429001856289154 Preprocedural examination (Z01.818) Active confirmed Problem Diverticulosis of sigmoid colon (600144300) Diverticulosis of sigmoid colon (K57.30) Active confirmed Problem Benign esophageal stricture (356832132) Benign esophageal stricture (K22.2) Active confirmed Problem Gastroesophageal reflux disease (disorder) (497570302) Chronic GERD (K21.9) Active confirmed Vital Signs Blood pressure diastolic 00 mm Hg 05/17/2024 Height 71 in 05/17/2024 Blood pressure systolic 00 mm Hg 05/17/2024 Weight 201 lbs 05/17/2024 BMI 28.03 kg/m2 05/17/2024 Encounters Encounter Location Date Provider Diagnosis [facility] Outpatient [address] [place] [phone] 12/15/2023 Neto Fam Esophageal obstruction K22.2 ; Dysphagia R13.10 and Hiatal hernia K44.9 [facility] [address] [place] [phone] 11/13/2023 Neto Fam Dysphagia R13.10 [facility] [address] [place] [phone] 05/17/2024 Neto Fam Benign esophageal stricture K22.2 and Chronic GERD K21.9 [facility] [address] [place] [phone] 12/11/2023 Neto Fam [facility] [address] [place] [phone] 12/15/2023 Neto Fam [facility] [address] [place] [phone] 12/22/2023 Neto Fam Assessments Encounter Date Diagnosis (ICD Code) Assessment Notes Treatment Notes Treatment Clinical Notes Section Notes 12/15/2023 Dysphagia (ICD-10 - R13.10) 12/15/2023 Esophageal obstruction (ICD-10 - K22.2) 11/13/2023 Dysphagia (ICD-10 - R13.10) Stop aspirin for three days before the procedure Overall, Kameron appears quite well. Based on his symptomatology I did review with him that this most likely reflects an esophageal ring or esophageal stricture and/or a possible component of reflux and esophageal spasm. Given his good clinical appearance, I doubt this represents any type of neoplasm. I did recommend he undergo an upper endoscopy with balloon dilation in the relatively near future so as to make a definitive diagnosis and to rule out any more worrisome pathology. Full consent was obtained from him for the procedure, including risks of bleeding and perforation. The procedure will be done with monitored anesthesia care. He was advised to stop aspirin 3 days before the procedure. I don't think he needs to be started on a PPI at this time but depending upon the results of the endoscopy we may need to add that subsequent to the procedure. We did review that he will be due for a followup colonoscopy in 2030 given the nonadenomatous polyp removed in 2020. Kameron was comfortable with this plan. Thank you again for allowing me to participate in Kameron's care. I shall continue to keep you advised of his progress. 05/17/2024 Benign esophageal stricture (ICD-10 - K22.2) [...] you advised of his progress as needed. 12/15/2023 Hiatal hernia (ICD-10 - K44.9) 05/17/2024 Other You can go back to [...] his progress as needed. Plan Of Treatment Future Test Test Name Order Date COLONOSCOPY 11/28/2011 COLONOSCOPY 03/21/2021 UPPER GI ENDOSCOPY [place] DILATION OF ESOPH 11/13/2023 Insurance Providers Payer Name Payer Address Payer Phone Subscriber Number Group Number Insured Name Patient Relationship to Insured Coverage Start Date Coverage End Date [facility] [address] [facility] [place] [phone] [id number] ROSMERY LEONE Self - patient is the insured Medical (General) History Medical History History ICD Code GERD-last EGD in 2000--no esophagitis no r Fleming's Denies RI,DM,CVA,Lung disease,renal dise ase Seasonal allergies BPH Colonoscopy [address] Ford was nega tive Colonoscopy 04/2021 with a small benign i nflammatory nonadenomatous polyp Atrial tachycardia-sees Dr. Reyes--ETT, Cardiac Echo, CT scan Upper endoscopy in December revealed a small hiatal hernia and a mild esophageal stricture that was dilated up to an 18 mm balloon. He was started on omeprazole at that time as well. There was no esophagitis nor Fleming's esophagus. Surgical History Surgery Date(Month/Year) Nasal polyps Hernia-left inguinal Prostate reduction surgery Dr. Macias 2022
--- OUTSIDE RECORDS SUMMARY | 2024-10-14 14:13 | XMS_ITS | Clinical Summary ---
Author Organization [facility] [place] [address] Care Team Providers Care Medical Doctor Name Role Phone Harsha Joyce MD Primary Care Provider [phone] Allergies No known active allergies Medications Medication Sig Dispensed Refills Start Date End Date Status aspirin 81 mg Tablet, Chewable Take 81 mg by mouth daily. Active meclizine (Antivert) 25 mg Tablet Take 1 tablet by mouth 3 times daily as needed. 90 tablet 03/15/2022 Active Social History Tobacco Use Types Packs/Day Years Used Date Smoking Tobacco: Never Smokeless Tobacco: Never Alcohol Use Standard Drinks/Week Comments Yes 4 (1 standard drink = 0.6 oz pur e alcohol) Sex and Gender Information Value Date Recorded Sex Assigned at Not on file Gender Identity Not on file Sexual Orientation Not on file Last Filed Vital Signs Vital Sign Reading Time Taken Comments Blood Pressure 159/91 03/15/2022 3:45 PM EDT Pulse 63 03/15/2022 3:45 PM EDT Temperature 36.8 ??C (98.3 ??F) 03/15/2022 12:57 PM E DT Respiratory Rate 14 03/15/2022 3:45 PM EDT Oxygen Saturation 98% 03/15/2022 3:45 PM EDT Inhaled Oxygen Concentration - - Weight 90.7 kg (200 lb) 03/15/2022 12:57 PM EDT Height 180.3 cm (5' 11 ) 03/15/2022 12:57 PM EDT Body Mass Index 27.89 03/15/2022 12:57 PM EDT Plan of Treatment Health Maintenance Due Date Last Done Comments CT Colonography 1959 Colonoscopy 1960 Colorectal Cancer Screening 1960 FIT DNA 1959 FIT 1960 Sigmoidoscopy (10 year) with FIT yearly 1960 Sigmoidoscopy 1960 HIV screen 1977 Hepatitis C Screening 1977 Lipid Screening 1977 Tetanus/Diphtheria/Pertussis Vaccines (1 - Tdap) 03/06 Pneumoccocal Vaccine: 50+ (1 of 1 - PCV) 2009 Zoster vaccine (1 of 2) 2009 Advance Directive 2014 Covid-19 Vaccine (1 - season) 2024 Influenza (Flu) vaccine (1 o f 1 - Influenza standard series) 04/03/2024 Diabetes Screening (HgbA1C or Glucose) 03/15/2025 Procedures Procedure Name Priority Date/Time Associated Diagnosis Comments BASIC METABOLIC PANEL STAT 03/15/2022 1:40 PM EDT from Last 3 Months or Most Recently Relevant to Health Maintenance Results * (ABNORMAL) Basic Metabolic Panel (non-fasting) (03/15/2022 1:40 PM EDT) Glucose 90 65 - 199 mg/dL [facility] Comment:Diabetes: >=200 mg/d L plus symptoms Blood Urea Nitrogen 21(H) 10 - 20 mg/dL [facility] Creatinine 1.18 0.80 - 1.50 mg/dL [facility] Sodium 140 135 - 145 mmol/L [facility] Potassium 3.8 3.5 - 5.0 mmol/L [facility] Comment: Please note: ??Patients with WBC >100,000 may have falsely elevated Potassium levels. ??For accurate Potassium quantification in these patients send serum separator tube (gold top) for subsequent determinations. ??Contact the Clinical Chemistry Laboratory if there are any questions. Chloride 104 98 - 107 mmol/L [facility] Carbon Dioxide 23 22 - 31 mmol/L [facility] Anion Gap 13 5 - 15 mmol/L [facility] Calcium 9.8 8.5 - 10.5 mg/dL [facility] Est Glomerular Filtration Rate 69 >=60 mL/min/1. 73 m?? [facility] Comment: This patient's estimated GFR was calculated using the 2020 CKD-EPI equation. The estimated GFR can vary from the measured GFR by up to 30% in the absence of rapidly changing kidney function. Assessment of the estimated GFR is not appropriate when creatinine concentrations are rapidly changing. For clinical situations in which a more precise estimate of GFR is necessary, consider alternative methods of GFR estimation such as a 24-hour urine creatinine clearance. Assignment of CKD stage 1-5 for patients with an eGFR near the transition point between stages may be based on clinical assessment of muscle mass and symptoms in addition to eGFR. Blood 03/15/2022 1:40 PM EDT 03/15/2022 1:45 PM EDT Narrative Resulting Agency Comment Spec In Lab Refugio Sloan MD CHEMISTRY ORDERABLES [facility] [address] [place] [address] from Last 3 Months or Most Recently Relevant to Health Maintenance Care Teams Medical Doctor Relationship Specialty Start Date End Date Harsha Joyce MD [address] [place] [address] PCP - General 06/25/10
--- OUTSIDE RECORDS SUMMARY | 2024-10-14 14:13 | XMS_ITS ---
Author Organization [facility] Address [address] [place] [address] Care Team Providers Care Director Customer Name Role Phone Harsha Joyce MD Primary Care Provider Neto Tyler [phone] Medications Medication SIG (Take, Route, Fr equency, Duration) Notes Start Date End Date Status Omeprazole 40 MG 1 capsule Orally Danielle ry morning for 90 days 12/15/2023 Active Encounters Encounter Location Date Provider Diagnosis [facility] [address] [place] [phone] 12/15/2023 Neto Fam Plan Of Treatment Medication Medication Name Sig Start Date Stop Date Notes Omeprazole 40 MG 1 capsule Orally Danielle ry morning for 90 days 12/15/2023 Progress Notes * ROSMERY LEONE EDOB:1959 (63 yo M)Acc No.[id number]:12/15/2023 Patient:?ROSMERY LEONE :1960???Age:63 Y???Sex:Male Address:[address] [place] [address] [facility] [place] [address] * Refills? Start Omeprazole Capsule Delayed Release, 40 MG, Orally, 90, 1 capsule, Every morning, 90 days, Refills=3 * true * Date:? Generated for Krupa cannon/Erik/eTransmitting on:?10/14/2024 02:12 PM EDT
== END 2024-10-14 12:41 | disposition home or self-care (01) ==
LOC: HO.HMGCLDS 12:40
PROVIDERS: Visit Provider Urology
DX: Z12.5 Encounter for screening for malignant neoplasm of prostate (principal); R97.20 Elevated prostate specific antigen [PSA]
CPT/HCPCS: 36415; 84153

== ENCOUNTER 2024-10-25 08:56 | Outpatient (AMB) | payer OTHER, SELFPAY ==
--- NOTE | 2024-10-25 08:56 | A.OFFVIS_ITS ---
Intake Visit Reasons: 6m/PSA(PSA) Intake Note: Patient is present for 6M/PSA Urology Medication:NONE Antibiotic Allergy:NONE Blood Thinner:ASPIRIN Checkroom Attendant Required: No Allergies perflutren Adverse Reaction (Verified 10/25/24 08:57) Back Pain HPI Comments Details: Kameron is a very pleasant male. He is a patient of Dr. Joyce. He is seen for the following urologic condition - elevated PSA - episode of urinary retention Telemedicine Evaluation 15 min Consultation [facility] [employer] Lm Video Six-month follow-up PSA remains elevated but stable Urinary stream, feeling empty, nocturia x1 sleeps 5-6 hours before waking Prior 03/25 [facility] - Pathology chronic inflammation Recent viral illness with cardiac implications 10/24 5.3 F 14% off medications 04/26 6.1 16% Elevated PSA/LUTS Episode of urinary retention October 2022 Found to have elevated PSA on regular follow-up with PCP Initial therapy trial of finasteride - Improvement of frequency and weakness of stream with finasteride Intervention - 03/25 [facility] laser prostatectomy - pathology chronic inflammation PSA - 12/21 5.9, 05/23 3.8, 11/22 2.7, 11/23 10.53, 02/21 4.3 12%, 10/24 5.3 F 14%, 06/26 5.6 16%, 10/25 5.3 Plan to continue with interval surveillance [facility] Medical History Seasonal allergies BPH (benign prostatic hyperplasia) Elevated PSA GERD (gastroesophageal reflux disease) Surgical History History of prostate surgery Hx of nasal polypectomy History of left inguinal hernia repair Hx of colonoscopy History of esophagogastroduodenoscopy (EGD) Social History Are you a primary healthcare administration internship to a significant other at home: No Alcohol intake: current Alcohol intake frequency: holidays/special occasions only Patient Tobacco Use Status: Former Tobacco user Review of Systems Const All systems reviewed & are unremarkable except as noted in HPI and below Reports no additional complaints Resp Reports no additional complaints GI Reports no additional complaints Reports as per HPI Musc Reports no additional complaints Physical Exam Telemedicine evaluation Appropriate responses Regular breathing rate and rhythm HEENT Head: Yes normal to inspection Ears: hearing grossly normal bilaterally Eyes General: appearance normal, both eyes and all related structures Neck Neck: Yes normal visual inspection Chest Chest palpation & inspection: normal inspection of the chest Resp Effort & Inspection: normal respiratory effort and able to speak in complete sentences Telehealth Telehealth Telehealth Platform: [facility] [facility] Location of provider rendering services: practice address Location of patient: address on file Patient Identification confirmed using: Name, : Yes Telehealth method: video Patient verbally consented to treatment: Yes Patient verbally consented to billing insurance company: Yes Patient informed of any privacy concerns related to visit: Yes Minutes spent on Phone/Video with Pt.: 15 Assessment & Plan Assessment & Plan (1) Elevated PSA: Code(s): R97.20 - Elevated prostate specific antigen [PSA] Category: Medical (2) BPH (benign prostatic hyperplasia): Code(s): N40.0 - Benign prostatic hyperplasia without lower urinary tract symptoms Category: Medical Plan Continue six-month surveillance Orders: Orders PSA,Total (Free>4and<10) 6 Months R97.20 - Elevated prostate specific antigen [PSA] Patient Instructions: This note is constructed using voice recognition software. While every effort has been made to ensure accuracy wafer substrate tester errors may have been included. Imaging studies, laboratory and physical exam results were discussed and reviewed in detail. No major barriers to patient understanding were identified. An opportunity to ask questions regarding the treatment plan was provided. All questions were answered. The patient expressed understanding and agreement with the above treatment plan. The patient is aware they should contact our office by phone for worsening of their current condition or the appearance of new urologic symptoms. Compliance is encouraged with any medications and followup testing that is ordered. It is a privilege to participate in the urologic care of your patient. If you have any questions or concerns regarding treatment for the above conditions, or other urologic issues, please do not hesitate to contact me. The office telephone contact is [phone]. Sincerely, Dr Doug Macias MD, [facility] - Urology Compassionate Specialist Care for the Genitourinary System Coding Level of Care Code Tele Est Pt Level 3 (68984) Complex EM visit Add On G2211 Diagnoses Elevated PSA R97.20 BPH (benign prostatic hyperplasia) N40.0
--- OUTSIDE RECORDS SUMMARY | 2024-10-25 09:42 | XMS_ITS | Clinical Summary ---
Author Organization [facility] Address [facility] [place] [address] Care Team Providers Care Antiquer Name Role Phone Harsha Joyce MD Primary Care Provider [phone] Allergies No known active allergies Medications Medication [...] EDT) Glucose 90 65 - 199 mg/dL [facility] Comment:Diabetes: >=200 mg/d L plus symptoms Blood Urea Nitrogen 21(H) 10 - 20 mg/dL [facility] Creatinine 1.18 0.80 - 1.50 mg/dL [facility] Sodium 140 135 - 145 mmol/L [facility] Potassium 3.8 3.5 - 5.0 mmol/L [facility] Comment: Please note: ??Patients with WBC >100,000 may have falsely elevated Potassium levels. ??For accurate Potassium quantification in these patients send serum separator tube (gold top) for subsequent determinations. ??Contact the Clinical Chemistry Laboratory if there are any questions. Chloride 104 98 - 107 mmol/L [facility] Carbon Dioxide 23 22 - 31 mmol/L [facility] Anion Gap 13 5 - 15 mmol/L [facility] Calcium 9.8 8.5 - 10.5 mg/dL [facility] Est Glomerular Filtration Rate 69 >=60 mL/min/1. 73 m?? [facility] Comment: This patient's estimated GFR was [...] In Lab Refugio Sloan MD CHEMISTRY ORDERABLES [facility] [address] [place] [address] from Last 3 Months or Most Recently Relevant to Health Maintenance Care Teams Antiquer Relationship Specialty Start Date End Date Harsha Joyce MD [address] [place] [address] PCP - General 06/25/10
--- OUTSIDE RECORDS SUMMARY | 2024-10-25 09:42 | XMS_ITS ---
Author Organization [facility] Address [address] [place] [address] Care Team Providers Care Sap Crm Developer Name Role Phone Harsha Joyce MD Primary Care Provider Neto Tyler Unavailable [phone] Allergies No Known Allergies REASON FOR VISIT [...] Status Risk Notes Problem Benign esophageal stricture (312643118) Benign esophageal stricture (K22.2) Active confirmed Problem Gastroesophageal reflux disease (disorder) (772282217) Chronic GERD (K21.9) Active confirmed Vital Signs Blood pressure systolic 00 mm Hg 05/17/20 24 Blood pressure diastolic 00 mm Hg 024 Height 71 in 05/17/2024 Weight 201 lbs 05/17/2024 BMI 28.03 kg/m2 05/17/2024 Encounters Encounter Location Date Provider Diagnosis [facility] [address] [facility] [address] [place] [address] 05/17/2024 Neto Fam Benign esophageal stricture K22.2 [...] * ROSMERY LEONE EDOB:1959 (64 yo M)Acc No.[id number]:05/17/2024 Progress Notes Patient:?VASU ROSMERY Ruby Provider:?Neto Fam MD :1960???Age:64 Y???Sex:Male Jason e:05/17/2024 Address:[address] [place] [address] [id number] Pcp:Harsha Joyce MD Subjective: * Chief Complaints: [...] past year??Never (0 point),?Points?3,?Interpretation?Negative.?Miscellaneous:?Marital status: . 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 ???Nonsmoker; 2-4 beers occasionally. * Medications:?TakingMetoprolo l [...] Procedure Codes:?3017F COLOR ECTAL CA SCREEN DOC [id number] TOBACCO NON-UJEQG0033 BP SCR NOT PRFRM REC REASON NOS [...] MD Date:? 024 Generated for Krupa cannon/Erik/Forrestitting on:?10/25/2024 09:41 AM EDT History and Physical Notes * HPI [...]
--- OUTSIDE RECORDS SUMMARY | 2024-10-25 09:42 | XMS_ITS ---
Author Organization [facility] Address [address] [address] Care Team Providers Care Medical Parasitologist Name Role Phone Harsha Joyce MD Primary Care Provider Neto Tyler [phone] Medications Medication SIG (Take, Route, Fr equency, Duration) Notes Start Date End Date Status Omeprazole 40 MG 1 capsule Orally Danielle ry morning for 90 days 12/15/2023 Active Encounters Encounter Location Date Provider Diagnosis [facility] [address] [place] [phone] 12/15/2023 Neto Fam Plan Of Treatment Medication Medication Name Sig Start Date Stop Date Notes Omeprazole 40 MG 1 capsule Orally Danielle ry morning for 90 days 12/15/2023 Progress Notes * ROSMERY LEONE EDOB:1959 (63 yo M)Acc No.[id number]:12/15/2023 Patient:?ROSMERY LEONE :1960???Age:63 Y???Sex:Male Address:[address] [place] [address] [facility] [place] [address] * Refills? Start Omeprazole Capsule Delayed Release, 40 MG, Orally, 90, 1 capsule, Every morning, 90 days, Refills=3 * true * Date:? Generated for Krupa cannon/Erik/eTransmitting on:?10/25/2024 09:42 AM EDT
--- OUTSIDE RECORDS SUMMARY | 2024-10-25 09:42 | XMS_ITS | Patient Health Record ---
Author Organization [facility] Address [address] [place] [address] Care Team Providers Care Intelligence Senior Sergeant Name Role Phone Harsha Joyce MD Primary Care Provider Neto Tyler Unavailable [phone] Allergies No Known Allergies Reason For Referral [...] Problem Status W/U Status Risk Notes Problem [id number] Encounter for screening for malignant neoplasm of colon (Z12.11) Active confirmed Problem Dysphagia (30359997) Dysphagia (R13.10) Active confirmed Problem Stricture of esophagus (39075294) Esophageal obstruction (K22.2) Active confirmed Problem 219073870199519 Preprocedural examination (Z01.818) Active confirmed Problem Diverticulosis of sigmoid colon (270026045) Diverticulosis of sigmoid colon (K57.30) Active confirmed Problem Benign esophageal stricture (793695636) Benign esophageal stricture (K22.2) Active confirmed Problem Gastroesophageal reflux disease (disorder) (536817118) Chronic GERD (K21.9) Active confirmed Vital Signs Blood pressure diastolic 00 mm Hg 05/17/2024 Height 71 in 05/17/2024 Blood pressure systolic 00 mm Hg 05/17/2024 Weight 201 lbs 05/17/2024 BMI 28.03 kg/m2 05/17/2024 Encounters Encounter Location Date Provider Diagnosis [facility] [address] [place] [phone] 12/15/2023 Neto Fam Esophageal obstruction K22.2 ; Dysphagia R13.10 and Hiatal hernia K44.9 [facility] [address] [place] [phone] 11/13/2023 Neto Fam Dysphagia R13.10 [facility] [address] [place] [address] 05/17/2024 Neto Fam Benign esophageal stricture K22.2 and Chronic GERD K21.9 [facility] [address] [place] [phone] 12/11/2023 Neto Fam [facility] [address] [place] [phone] 12/15/2023 Neto Fam [facility] [address] [place] [phone] 12/22/2023 Neto Fam Assessments Encounter Date Diagnosis [...] Insured Coverage Start Date Coverage End Date [facility] [address] [facility] [place] [phone] [id number] ROSMERY LEONE Self - patient is the insured Medical (General) History Medical History History ICD Code GERD-last EGD in 2000--no esophagitis no r Fleming's Denies [place],DM,CVA,Lung disease,renal dise ase Seasonal allergies BPH Colonoscopy [...]
--- OUTSIDE RECORDS SUMMARY | 2024-10-25 09:42 | XMS_ITS ---
Author Organization [facility] Address [address] [place] [address] Care Team Providers Care Street Vendor Name Role Phone Harsha Joyce MD Primary Care Provider Neto Tyler [phone] REASON FOR VISIT schedule f/u with Dr. Fam No escanaba Encounters Encounter Location Date Provider Diagnosis [facility] [address] [place] [address] 12/22/2023 Neto Fam Plan Of Treatment No Information Progress Notes * ROSMERY LEONE EDOB:1959 (63 yo M)Acc No.[id number]:12/22/2023 Patient:?ROSMERY LEONE :1960???Age:63 Y???Sex:Male Address:[address] [place] [address] [place] [address] * true * Date:? Generated for Apolinari davis/Erik/eTransmitting on:?10/25/2024 09:42 AM EDT
== END 2024-10-25 09:19 | disposition home or self-care (01) ==
LOC: HO.HUSH 08:56
PROVIDERS: PCP Internal Medicine; Visit Provider Urology
DX: R97.20 Elevated prostate specific antigen [PSA] (principal); N40.0 Benign prostatic hyperplasia without lower urinary tract symptoms
CPT/HCPCS: 99213

== ENCOUNTER → 2024-10-25 08:56 | Outpatient (BNVA) | payer OTHER, SELFPAY | PROVIDERS: PCP Internal Medicine; Visit Provider Urology ==

== ENCOUNTER 2024-11-14 08:05 | Outpatient (AMB) | payer OTHER, SELFPAY ==
--- OUTSIDE RECORDS SUMMARY | 2024-11-14 08:24 | XMS_ITS ---
Author Organization [facility] Address [address] [place] [address] Care Team Providers Care Cdl Bulk Driver Name Role Phone Harsha Joyce MD Primary Care Provider Neto Tyler [phone] Medications Medication SIG (Take, Route, Fr equency, Duration) Notes Start Date End Date Status Omeprazole 40 MG 1 capsule Orally Danielle ry morning for 90 days 12/15/2023 Active Encounters Encounter Location Date Provider Diagnosis [facility] [address] [place] [address] 12/15/2023 Neto Fam Plan Of Treatment Medication Medication Name Sig Start Date Stop Date Notes Omeprazole 40 MG 1 capsule Orally Danielle ry morning for 90 days 12/15/2023 Progress Notes * ROSMERY LEONE EDOB:1959 (63 yo M)Acc No.[id number]:12/15/2023 Patient:?ROSMERY LEONE :1960???Age:63 Y???Sex:Male Address:[address] [place] [address] [facility] [place] [address] * Refills? Start Omeprazole Capsule Delayed Release, 40 MG, Orally, 90, 1 capsule, Every morning, 90 days, Refills=3 * true * Date:? Generated for Krupa cannon/Erik/eTransmitting on:?11/14/2024 08:24 AM EDT
--- OUTSIDE RECORDS SUMMARY | 2024-11-14 08:24 | XMS_ITS | Clinical Summary ---
Author Organization [facility] Address [facility] [place] [address] Care Team Providers Care Property And Casualty Insurance Agent Name Role Phone Harsha Joyce MD Primary Care Provider [phone] Allergies No known active allergies Medications Medication [...] EDT) Glucose 90 65 - 199 mg/dL [facility] Comment:Diabetes: >=200 mg/d L plus symptoms Blood Urea Nitrogen 21(H) 10 - 20 mg/dL [facility] Creatinine 1.18 0.80 - 1.50 mg/dL [facility] Sodium 140 135 - 145 mmol/L [facility] Potassium 3.8 3.5 - 5.0 mmol/L [facility] Comment: Please note: ??Patients with WBC >100,000 may have falsely elevated Potassium levels. ??For accurate Potassium quantification in these patients send serum separator tube (gold top) for subsequent determinations. ??Contact the Clinical Chemistry Laboratory if there are any questions. Chloride 104 98 - 107 mmol/L [facility] Carbon Dioxide 23 22 - 31 mmol/L [facility] Anion Gap 13 5 - 15 mmol/L [facility] Calcium 9.8 8.5 - 10.5 mg/dL [facility] Est Glomerular Filtration Rate 69 >=60 mL/min/1. 73 m?? [facility] Comment: This patient's estimated GFR [...] In Lab Refugio Sloan MD CHEMISTRY ORDERABLES [facility] [address] [place] [address] from Last 3 Months or Most Recently Relevant to Health Maintenance Care Teams Property And Casualty Insurance Agent Relationship Specialty Start Date End Date Harsha Joyce MD [address] [place] [address] PCP - General 06/25/10
--- OUTSIDE RECORDS SUMMARY | 2024-11-14 08:24 | XMS_ITS | Patient Health Record ---
Author Organization [facility] Address [address] [place] [address] Care Team Providers Care Rigger Third Name Role Phone Harsha Joyce MD Primary Care Provider Neto Tyler Unavailable [phone] Allergies No Known Allergies Reason For Referral [...] Problem Status W/U Status Risk Notes Problem 033576392 Encounter for screening for malignant neoplasm of colon (Z12.11) Active confirmed Problem Dysphagia (58534941) Dysphagia (R13.10) Active confirmed Problem Stricture of esophagus (73908838) Esophageal obstruction (K22.2) Active confirmed Problem 154712458160017 Preprocedural examination (Z01.818) Active confirmed Problem Diverticulosis of sigmoid colon (172843188) Diverticulosis of sigmoid colon (K57.30) Active confirmed Problem Benign esophageal stricture (909776275) Benign esophageal stricture (K22.2) Active confirmed Problem Gastroesophageal reflux disease (disorder) (566013988) Chronic GERD (K21.9) Active confirmed Vital Signs Blood pressure diastolic 00 mm Hg 05/17/2024 Height 71 in 05/17/2024 Blood pressure systolic 00 mm Hg 05/17/2024 Weight 201 lbs 05/17/2024 BMI 28.03 kg/m2 05/17/2024 Encounters Encounter Location Date Provider Diagnosis [facility] Out[facility] [address] [place] [phone] 12/15/2023 Neto Fam Esophageal obstruction K22.2 ; Dysphagia R13.10 and Hiatal hernia K44.9 [facility] [address] [place] [phone] 05/17/2024 Neto Fam Benign esophageal stricture K22.2 and Chronic GERD K21.9 [facility] [address] [place] [address] [address] [place] [phone] 12/11/2023 Neto Fam [facility] [address] [place] [address] [address] [place] [phone] 12/15/2023 Neto Fam [facility] [address] [place] [phone] 12/22/2023 Neto Fam Assessments Encounter Date Diagnosis (ICD Code) Assessment Notes Treatment Notes Treatment Clinical Notes Section Notes 12/15/2023 Dysphagia (ICD-10 - R13.10) 12/15/2023 Esophageal obstruction (ICD-10 - K22.2) 05/17/2024 Benign esophageal stricture (ICD-10 - K22.2) [...] Insured Coverage Start Date Coverage End Date [facility] [address] [place] [address] [phone] [id number] ROSMERY LEONE Self - patient is the insured Medical (General) History Medical History History ICD Code GERD-last EGD in 2000--no esophagitis no r Fleming's Denies [place],DM,CVA,Lung disease,renal dise ase Seasonal allergies BPH Colonoscopy [...] polyps Hernia-left inguinal Prostate reduction surgery Dr. Maicas 2022
--- OUTSIDE RECORDS SUMMARY | 2024-11-14 08:24 | XMS_ITS ---
Author Organization [facility] Address [address] [place] [address] Care Team Providers Care Rn Building Name Role Phone Harsha Joyce MD Primary Care Provider Neto Tyler Unavailable [phone] Allergies No Known Allergies REASON FOR VISIT [...] Status Risk Notes Problem Benign esophageal stricture (594824798) Benign esophageal stricture (K22.2) Active confirmed Problem Gastroesophageal reflux disease (disorder) (148043386) Chronic GERD (K21.9) Active confirmed Vital Signs Blood pressure systolic 00 mm Hg 05/17/20 24 Blood pressure diastolic 00 mm Hg 024 Height 71 in 05/17/2024 Weight 201 lbs 05/17/2024 BMI 28.03 kg/m2 05/17/2024 Encounters Encounter Location Date Provider Diagnosis [facility] [address] [facility] [address] [place] [address] 05/17/2024 Neto Fam Benign esophageal stricture K22.2 [...] * ROSMERY LEONE EDOB:1959 (64 yo M)Acc No.[id number]:05/17/2024 Progress Notes Patient:?VASU ROSMERY Ruby Provider:?Neto Fam MD :1960???Age:64 Y???Sex:Male Jason e:05/17/2024 Address:[address] [place] [address] [id number] Pcp:Harsha Joyce MD Subjective: * Chief Complaints: [...] past year??Never (0 point),?Points?3,?Interpretation?Negative.?Miscellaneous:?Marital status: . 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 ???Nonsmoker; 2-4 beers occasionally. * Medications:?TakingMetoprolo l [...] Procedure Codes:?3017F COLOR ECTAL CA SCREEN DOC [id number] TOBACCO [id number] BP SCR NOT PRFRM REC REASON NOS [...] MD Date:? 024 Generated for Krupa cannon/Erik/Forrestitting on:?11/14/2024 08:23 AM EDT History and Physical Notes * [...]
--- OUTSIDE RECORDS SUMMARY | 2024-11-14 08:24 | XMS_ITS ---
Author Organization [facility] Address [address] [place] [address] Care Team Providers Care Mowing Machine Operator Name Role Phone Harsha Joyce MD Primary Care Provider Neto Tyler [phone] REASON FOR VISIT schedule f/u with Dr. Fam No bass[place] Encounters Encounter Location Date Provider Diagnosis [facility] [address] [place] [phone] 12/22/2023 Neto Fam Plan Of Treatment No Information Progress Notes * ROSMERY LEONE EDOB:1959 (63 yo M)Acc No.[id number]:12/22/2023 Patient:?ROSMERY LEONE :1960???Age:63 Y???Sex:Male Address:[address] [place] [address] [place] [address] * true * Date:? Generated for Printi davis/Erik/eTransmitting on:?11/14/2024 08:24 AM EDT
[2024-11-14 08:31] VITALS: BP 122/84; PULSE 58; O2SAT 98
--- NOTE | 2024-11-14 08:31 | AM.OFFWIN_ITS ---
Intake Vital Signs 3 11/14/24 08:31 Weight 207 lb BP 122/84 Blood Pressure Location Rt brachial Position Sitting Pulse 58 Pulse Source Pulse Oximeter Pulse Oximetry (%) 98 Oxygen Delivery Method Room Air Intake Visit Reasons: EP-possible shingle Intake Note: Patient here for rash/lesion on right eye that started last night but started to have eye pain about 1 week ago and has went to the eye dr who confirmed eye was healthy. Patient Tobacco Use Status: Former Tobacco user Allergies perflutren Adverse Reaction (Verified 11/14/24 08:32) Back Pain Do you need a note to return to daycare/school/sports/work: No HPI HPI Comments 2 History of Present Illness0 Details 64 y/o Male patient who presents to the walk in clinic with c/o Rash that started Thursday. States that Rash is Located on forehead, Left Orbital region and Left Upper Eyelid. Describes the rash painful and pain radiates down to the left Jaw and left ear. He saw his Eye Doctor Yesterday who informed him his vision and eye structure was Good. Denies vision changes or eye Pain. Pt reports about a week ago, he had Pain and tingling before the rash appeared. 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 H/o Chicken Pox as a child, and he has not received Shingles Vaccine. [facility] Medical History (Updated 11/14/24 @ 09:26 by Jayna Daily NP) Rash and nonspecific skin eruption Seasonal allergies BPH (benign prostatic hyperplasia) Elevated PSA GERD (gastroesophageal reflux disease) Surgical History History of prostate surgery Hx of nasal polypectomy History of left inguinal hernia repair Hx of colonoscopy History of esophagogastroduodenoscopy (EGD) Social History Are you a primary ocular care technician to a significant other at home: No Alcohol intake: current Alcohol intake frequency: holidays/special occasions only Patient Tobacco Use Status: Former Tobacco user Physical Exam Vital Signs: Last Vital Signs Pulse 58 11/14/24 08:31 BP 122/84 11/14/24 08:31 Pulse Ox 98 11/14/24 08:31 Oxygen Delivery Method Room Air 11/14/24 08:31 Const General: no acute distress; No comfortable Orientation/consciousness: patient oriented x3 Eyes Conjunctivae: conjunctivae normal Pupils: Equal, round and reactive pupils present EOM: EOMs intact bilaterally Skin General skin exam: dry skin and erythema Full body images: 2 1. Erythema lesions, TTP covering forehead, and left Orbital and upper eyelid. Some lesions are vesicles. Neuro General: patient oriented x3, gait normal and moves all extremities Cranial nerves: Yes Equal, round and reactive pupils present Psych Speech and movement: Normal speech and movement present Assessment & Plan Assessment & Plan (1) Rash and nonspecific skin eruption: Code(s): R21 - Rash and other nonspecific skin eruption Plan: DDx's: Shingles vs Dermatitis vs eczema. Ordered Valacyclovir and will Tx as Shingles. Advised to call Dermatology Today. Medications: New 2 valacyclovir 1,000 mg PO BID 14 tabs 0RF 7 days R21 - Rash and other nonspecific skin eruption Coding Level of Care Code Est Pt Level 4 (48434) Diagnoses Rash and nonspecific skin eruption R21 Time Spent (min) 20
== END 2024-11-14 10:47 | disposition home or self-care (01) ==
PROVIDERS: PCP Internal Medicine; Visit Provider Nurse Practitioner Family
DX: R21 Rash and other nonspecific skin eruption (principal)

== ENCOUNTER → 2024-11-14 08:05 | Outpatient (BNVA) | payer OTHER, SELFPAY | PROVIDERS: PCP Internal Medicine; Visit Provider Nurse Practitioner Family ==

== ENCOUNTER 2025-01-09 09:31 | Outpatient (AMB) | payer OTHER, SELFPAY ==
[2025-01-09 09:18] VITALS: BP 120/76; PULSE 46; TEMP 36.4; O2SAT 96; BMI 28.4
--- NOTE | 2025-01-09 09:18 | A.OFFPC_ITS ---
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: No Accompanied by: Self / Same As Patient Allergies perflutren Adverse Reaction (Verified 01/09/25 10:24) Back Pain Medication List - Last Reconciled 01/09/25 by Danis Hensley MD albuterol sulfate 90 mcg/actuation 90 mcg inhalation Q4H PRN aspirin 81 mg PO DAILY metoprolol succinate ER 100 mg PO DAILY omeprazole 40 mg PO DAILY Tobacco use date assessed: 01/09/25 Fall risk assessment: No Falls in past year Last assessed Fall Risk: 01/09/25 Dental Screening Dental Screen Date: 01/09/25 Did you have a dental visit in the last 12 months?: No Did you have a dental problem in the last 6 months where you did not have access to dental care?: No PFSH Medical History Rash and nonspecific skin eruption Seasonal allergies BPH (benign prostatic hyperplasia) Elevated PSA GERD (gastroesophageal reflux disease) Surgical History History of prostate surgery Hx of nasal polypectomy History of left inguinal hernia repair Hx of colonoscopy (~04/15/21) History of esophagogastroduodenoscopy (EGD) Family History Mother No problems noted. Father No problems noted. Social History Housing: House Are you a primary personal caregiver to a significant other at home: No Alcohol intake: current Alcohol intake frequency: holidays/special occasions only Patient Tobacco Use Status: Former Tobacco user e-Cigarette/Vaping Use: Former Use service: No Current occupational status: employed Cognitive needs: No Hearing needs: No Vision needs: Yes (rx glasses) Questionnaire PHQ-9 Over the last 2 weeks, how often have you been bothered by any of the following problems? 1. Little interest or pleasure in doing things: not at all 2. Feeling down, depressed, or hopeless: not at all 3. Trouble falling or staying asleep, or sleeping too much: not at all 4. Feeling tired or having little energy: not at all 5. Poor appetite or overeating: not at all 6. Feeling bad about yourself - or that you are a failure or have let yourself or your family down: not at all 7. Trouble concentrating on things, such as reading the newspaper or watching television: not at all 8. Moving or speaking so slowly that other people could have noticed. Or the opposite - being so fidgety or restless that you have been moving around a lot more than usual: not at all 9. Thoughts that you would be better off or of hurting yourself in some way: not at all Total score: 0 Source: Developed by Drs. Neto Brar, Katrina Arteaga, Joon Gallardo and colleagues, with an educational batool from [employer]. Thrive Questionnaire Date Thrive assessed: 01/09/25 I am a: Patient Within the past 12 months, did the food you bought not last and you didn't have the money to get more?: Never true Within the past 12 months, did you worry whether your food would run out before you got money to buy more?: Never true Do you have trouble paying for medicines?: No Do you have trouble getting transportation to medical appointments?: No Do you have trouble paying your heating and electricity bill?: No Do you have trouble taking care of your child, family member or friend?: No Do you have trouble with day-to-day activities such as bathing, preparing meals, shopping, managing finances, etc.?: No Are you currently unemployed and looking for a job?: No Are you interested in more education?: No THRIVE Score: 0 AUDIT C Alcohol Use Questionnaire (AUDIT-C) 1. How often do you have a drink containing alcohol?: Monthly or less 2. How many drinks containing alcohol do you have on a typical day when you are drinking?: 1 or 2 3. How often do you have six or more drinks on one occasion?: Less than monthly Total Score: 2 GRANT-7 AMB Questionnaire GRANT-7 Date GRANT - 7 assessed: 01/09/25 Feeling nervous, anxious, or on edge: 0 = Not at all Not being able to stop or control worryin = Not at all Worrying too much about different things: 0 = Not at all Trouble relaxin = Not at all Being so restless that it is hard to sit still: 0 = Not at all Becoming easily annoyed or irritable: 0 = Not at all Feeling afraid as if something awful might happen: 0 = Not at all Total GRANT-7 score (0-4 normal; 5-9 mild; 10-14 moderate; 15-21 severe): 0 Source: Developed by Drs. Neto Brar, Katrina Arteaga, Joon Gallardo and colleagues, with an educational batool from [employer]. Physical exam (Primary Care) Vital Signs: Last Vital Signs Temp 97.5 F 01/09/25 09:18 Pulse 46 L 01/09/25 09:18 BP 120/76 01/09/25 09:18 Pulse Ox 96 01/09/25 09:18 Oxygen Delivery Method Room Air 01/09/25 09:18 BMI result Body Mass Index 28.4 Tobacco/Smoking Status: Tobacco use Status Tobacco use date assessed 01/09/25 01/09/25 09:20 Patient Tobacco Use Status Former Tobacco user 01/09/25 09:20 e-Cigarette/Vaping Use Former Use 01/09/25 09:20 PHQ-9: PHQ-9 Score PHQ-9: Total score 0 01/09/25 09:51 Thrive Assessment: Date of Thrive Assessment Date Thrive assessed 01/09/25 01/09/25 09:20 Coding Level of Care Code New Pt Level 4 (91422) Complex EM visit Add On G2211 Diagnoses HTN (hypertension) I10 Assessment & Plan Assessment & Plan (1) HTN (hypertension): Code(s): I10 - Essential (primary) hypertension Category: Medical Plan: Blood pressure is in range. Continue current medications. Plan History of Present Illness - The patient is a 64 year old male presenting with chronic low back pain. - Reports severe, horizontal lower back pain, with associated left leg neuropathy. - Pain severity ranges daily and is exacerbated by waking and prolonged standing. - Alleviated by sitting or lying down. - He denies urinary symptoms and sciatic pain. - Despite back pain, he can walk significant distances with some discomfort noted post-exertion. 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 - Engages in regular physical activities, including walking and hiking. - Participates in yard work and uses an exercise bike. - Consumes a reasonably healthy diet. - Reports no tobacco use. - Continues to work full-time. Review of Systems - Musculoskeletal: Reports chronic lower back pain, neuropathy in left leg; denies sciatic pain. - Genitourinary: Denies urinary symptoms. - Respiratory: Denies respiratory issues. - Nervous System: Denies headaches. - Cardiovascular: No current symptoms reported; history of atrial tachycardia. - General: Denies fever; reports reasonable sleep quality. - ENT: Reports chronic sinus issues. Physical Exam General: Cooperative and healthy appearing Nutritional Appearance: Well nourished Orientation/consciousness: Patient oriented x3 Limitations: No limitations Head: Normal to inspection General: Appearance normal, both eyes and all related structures Neck: Normal visual inspection Chest: Normal palpation of entire chest wall Respiratory: N ormal respiratory effort Neurology: Patient oriented x3, reports occasional neuropathy in left leg. Results - Labs: Prostate-Specific Antigen (PSA) level approximately 5. - Procedures: History of prostate reduction surgery. Plan 1. Chronic Low Back Pain - Initiate physical therapy, focusing on stretching exercises. 2. Peripheral Neuropathy - Monitor symptoms during physical therapy. 3. Hypertension - Continue Metoprolol for blood pressure management. 4. Atrial Tachycardia - Maintain current aspirin regimen for atrial tachycardia. 5. Elevated Prostate-Specific Antigen Psa - Continue urological monitoring. 6. Status Post Prostate Reduction Surgery - Ongoing follow-up with urology. 7. Chronic Rhinosinusitis - Azithromycin therapy as needed for sinusitis. Discussion Notes I discussed with the patient the management plan for his chronic low back pain, emphasizing the initiation of physical therapy with a focus on stretching exercises. The advantages of conservative measures were explained, along with reassurance about the absence of need for pharmacotherapy at this point, including muscle relaxants. We also reviewed the patient's management of hypertension, confirming the continued use of Metoprolol. His atrial tachycardia will remain managed with low-dose aspirin, with no need for additional anticoagulation. I educated him on the monitoring of his PSA levels and the appropriate follow-up involved. For his chronic rhinosinusitis, I suggested Azithromycin on an as-needed basis for exacerbations and explained the expected follow-up procedure should his respiratory symptoms worsen. Encouraged him to maintain his regular exercise and healthy diet, and addressed the changes to healthcare logistics post-provider transition. Patient Instructions - Begin physical therapy with a focus on back stretching exercises. - Continue taking your Metoprolol for blood pressure control. - Maintain use of aspirin as previously prescribed. - Monitor any changes in symptoms, particularly back pain or urinary symptoms. - Follow up with your urologist for PSA monitoring and prostate health. - For sinus issues, consider using Azithromycin as needed after consulting the clinic. - Contact the office if symptoms worsen or new symptoms arise. - Ensure regular physical activity and maintain a healthy diet. Orders: Orders Basic Metabolic Panel Today I10 - Essential (primary) hypertension Complete Blood Count no Diff Today I10 - Essential (primary) hypertension Thyroid Stimulating Hormone Today I10 - Essential (primary) hypertension UA and rflx microscopic Today I10 - Essential (primary) hypertension Lipid Panel Today I10 - Essential (primary) hypertension Liver Panel Today I10 - Essential (primary) hypertension
--- OUTSIDE RECORDS SUMMARY | 2025-01-09 10:08 | XMS_ITS ---
Author Organization [facility] Address [address] [place] [address] Care Team Providers Care Ui Ux Engineer Name Role Phone Harsha Joyce MD Primary Care Provider Neto Tyler Unavailable [phone] Allergies No Known Allergies REASON FOR VISIT [...] Status Risk Notes Problem Benign esophageal stricture (285700311) Benign esophageal stricture (K22.2) Active confirmed Problem Chronic GERD (K21.9) Active confirmed Vital Signs Blood pressure systolic 00 mm Hg 05/17/20 24 Blood pressure diastolic 00 mm Hg 024 Height 71 in 05/17/2024 Weight 201 lbs 05/17/2024 BMI 28.03 kg/m2 05/17/2024 Encounters Encounter Location Date Provider Diagnosis [facility] [address] [place] [address] 05/17/2024 Neto Fam Benign esophageal stricture K22.2 [...] * ROSMERY LEONE EDOB:1959 (64 yo M)Acc No.[id number]:05/17/2024 Progress Notes Patient:?ROSMERY LEONE Provider:?Neto Fam MD :1960???Age:64 Y???Sex:Male Jason e:05/17/2024 Address:[address] [place] [address] [id number] Pcp:Harsha Joyce MD Subjective: * Chief Complaints: [...] ps Hernia-left inguinal Prostate reduction surgery Dr. aMcias 03/2023 * Hospitalization/Major Diagno stic Procedure:?No Hospitalization [...] past year??Never (0 point),?Points?3,?Interpretation?Negative.?Miscellaneous:?Marital status: . 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 ???Nonsmoker; 2-4 beers occasionally. * Medications:?TakingMetoprolo l [...] Procedure Codes:?3017F COLOR ECTAL CA SCREEN DOC TAP5528V TOBACCO [id number] BP SCR NOT PRFRM REC REASON NOS [...] Fam MD Date:? 024 Generated for Krupa cannon/Erik/eTransmitting on:?01/09/2025 10:07 AM EDT History and Physical Notes * [...]
== END 2025-01-09 10:08 | disposition home or self-care (01) ==
LOC: HO.HMCHD 09:32
PROVIDERS: PCP Internal Medicine; Visit Provider Internal Medicine
DX: I10 Essential (primary) hypertension (principal)

== ENCOUNTER → 2025-01-09 09:31 | Outpatient (BNVA) | payer OTHER, SELFPAY | PROVIDERS: PCP Internal Medicine; Visit Provider Internal Medicine ==

== ENCOUNTER 2025-02-17 06:28 | Outpatient (REF) | payer OTHER, SELFPAY ==
--- OUTSIDE RECORDS SUMMARY | 2025-02-17 06:31 | XMS_ITS | Patient Health Record ---
Author Organization [facility] Address [address] [place] [address] Care Team Providers Care Felt Pad Cutter Name Role Phone Isiah (RETIRED) Harsha BUENO Primary Care Provide r Unavailable Neto Fam Unavailable [phone] Allergies No Known Allergies Reason For Referral [...] Problem Status W/U Status Risk Notes Problem [id number] Encounter for screening for malignant neoplasm of colon (Z12.11) Active confirmed Problem Dysphagia (79233736) Dysphagia (R13.10) Active confirmed Problem Esophageal obstruction (K22.2) Active confirmed Problem 733096802084426 Preprocedural examination (Z01.818) Active confirmed Problem Diverticulosis of sigmoid colon (301289470) Diverticulosis of sigmoid colon (K57.30) Active confirmed Problem Benign esophageal stricture (574968848) Benign esophageal stricture (K22.2) Active confirmed Problem Chronic GERD (K21.9) Active confirmed Vital Signs Blood pressure diastolic 00 mm Hg 05/17/2024 Height 71 in 05/17/2024 Blood pressure systolic 00 mm Hg 05/17/2024 Weight 201 lbs 05/17/2024 BMI 28.03 kg/m2 05/17/2024 Encounters Encounter Location Date Provider Diagnosis [facility] [address] [place] [address] 05/17/2024 Neto Fam Benign esophageal stricture K22.2 [...] Insured Coverage Start Date Coverage End Date [facility] [address] [facility] [place] [phone] [id number] ROSMERY LEONE Self - patient is the insured Medical (General) History Medical History History ICD Code GERD-last EGD in 2000--no esophagitis no r Fleming's Denies [place],DM,CVA,Lung disease,renal dise ase Seasonal allergies BPH Colonoscopy [...]
--- OUTSIDE RECORDS SUMMARY | 2025-02-17 06:31 | XMS_ITS | Clinical Summary ---
[facility] [place] [address] Care Team Providers Care Field Service Technician Poultry Name Role Phone Harsha Joyce MD Primary Care Provider [phone] Allergies No known active allergies Medications aspirin 81 mg Tablet, Chewable Take 81 [...] Recorded Sex Assigned at Not on file Legal Sex Male 7:03 AM EST Gender Identity Not on file Sexual Orientation Not on file Last Filed Vital Signs Vital Sign Reading Time Taken Comments Blood Pressure 159/91 03/15/2022 3:45 PM EDT Pulse 63 03/15/2022 3:45 PM EDT Temperature 36.8 C (98.3 F) 03/15/2022 12:57 PM EDT Respiratory Rate 14 03/15/2022 3:45 PM EDT [...] Advance Directive 2014 Covid-19 Vaccine (1 - 2023- season) 2024 Diabetes Screening (HgbA1C or Glucose) 03/15/2025 Influenza (Flu) vaccine (1 o f 1 - Influenza standard series) 04/03/2025 Procedures Procedure Name Priority Date/Time Associated Diagnosis Comments BASIC METABOLIC PANEL STAT 03/15/2022 1:40 PM EDT from Last 3 Months or Most Recently Relevant to Health Maintenance Results * (ABNORMAL) Basic Metabolic Panel (non-fasting) (03/15/2022 1:40 PM EDT) Glucose 90 65 - 199 mg/dL [facility] Comment:Diabetes: >=200 mg/d L plus symptoms Blood Urea Nitrogen 21(H) 10 - 20 mg/dL [facility] Creatinine 1.18 0.80 - 1.50 mg/dL [facility] Sodium 140 135 - 145 mmol/L [facility] Potassium 3.8 3.5 - 5.0 mmol/L [facility] Comment: Please note: Patients with WBC >100,000 may have falsely elevated Potassium levels. For accurate Potassium quantification in these patients send serum separator tube (gold top) for subsequent determinations. Contact the Clinical Chemistry Laboratory if there are any questions. Chloride 104 98 - 107 mmol/L [facility] Carbon Dioxide 23 22 - 31 mmol/L [facility] Anion Gap 13 5 - 15 mmol/L [facility] Calcium 9.8 8.5 - 10.5 mg/dL [facility] Est Glomerular Filtration Rate 69 >=60 mL/min/1. 73 m [facility] Comment: This patient's estimated GFR [...] Narrative Resulting Agency Comment Spec In Lab us Refugio Sloan MD CHEMISTRY ORDERABLES Final R esult [facility] [address] [place] [address] from Last 3 Months or Most Recently Relevant [place] [id number] [facility] Care Teams Field Service Technician Poultry Relationship Specialty Start Date End Date Harsha Joyce MD [facility] [address] [place] [address] PCP - General 06/25/10
[2025-02-17 10:10] LABS: Appearance Urine Turbid; Glucose Urine UA Negative (Negative); PH 5.0 (5.0-9.0); Specific Gravity - Urine 1.025 (1.005-1.025); UMIC TRIGGER UA YES
[2025-02-17 10:20] LABS: Hematocrit 46.3 % (42.0-52.0); Hemoglobin 16.4 g/dl (14.0-18.0); Mean Corpuscular HGB Conc 35.4 g/dl (31.0-36.0); Mean Corpuscular Hemoglobin 32.9 pg (27.0-33.0); Mean Corpuscular Volume 93.0 fL (80.0-98.0); NRBC Abs Auto 0.000 X10*3/uL (0.0-0.012); NRBC Pct Auto 0.0 /100WBC (0.0-0.2); Platelet Count 167 X10*3/uL (160-400); Red Blood Count 4.98 X10*6/uL (4.60-5.80); White Blood Count 5.5 X10*3/uL (4.8-10.8)
[2025-02-17 10:54] LABS: Alanine Aminotransferase 21 U/L (0-40); Albumin Level 4.3 g/dL (3.5-5.0); Alkaline Phosphatase 41 U/L (39-117); Anion Gap 14 (12-20); Aspartate Amino Transferase 32 U/L (5-37); Blood Urea Nitrogen 18 mg/dL (9-16); Calcium 9.2 mg/dL (8.4-10.2); Carbon Dioxide 25 mmol/L (22-29); Chloride 107 mmol/L (96-108); Cholesterol 176 mg/dL (<200); Estimated Glomerular Filt Rate 59; HDL Cholesterol 40 mg/dL (>40); Potassium 3.9 mmol/L (3.3-5.1); Sodium 142 mmol/L (135-145); Total Protein 7.2 g/dL (6.5-8.0); Triglycerides 159 mg/dL (<150)
[2025-02-17 11:11] LABS: Thyroid Stimulating Hormone 4.24 uIU/mL (0.32-4.0)
== END 2025-02-17 06:29 | disposition home or self-care (01) ==
LOC: HO.HMGCLDS 06:28
PROVIDERS: PCP Internal Medicine; Visit Provider Internal Medicine
DX: I10 Essential (primary) hypertension (principal)
CPT/HCPCS: 36415; 80048; 80061; 80076; 81001; 84443; 85027

== ENCOUNTER → 2025-02-28 07:59 | Outpatient (REF) | payer OTHER, SELFPAY ==
--- OUTSIDE RECORDS SUMMARY | 2025-02-28 08:02 | XMS_ITS | Clinical Summary ---
[facility] Organization [facility] [place] [address] Care Team Providers Care Community Health Representative Name Role Phone Harsha Joyce MD Primary Care Provider [phone] Allergies No known active allergies Medications aspirin [...] EDT) Glucose 90 65 - 199 mg/dL [facility] Comment:Diabetes: >=200 mg/d L plus symptoms Blood Urea Nitrogen 21(H) 10 - 20 mg/dL [facility] Creatinine 1.18 0.80 - 1.50 mg/dL [facility] Sodium 140 135 - 145 mmol/L [facility] Potassium 3.8 3.5 - 5.0 mmol/L [facility] Comment: Please note: Patients with WBC >100,000 may have falsely elevated Potassium levels. For accurate Potassium quantification in these patients send serum separator tube (gold top) for subsequent determinations. Contact the Clinical Chemistry Laboratory if there are any questions. Chloride 104 98 - 107 mmol/L [facility] Carbon Dioxide 23 22 - 31 mmol/L [facility] Anion Gap 13 5 - 15 mmol/L [facility] Calcium 9.8 8.5 - 10.5 mg/dL [facility] Est Glomerular Filtration Rate 69 >=60 mL/min/1. 73 m [facility] Comment: This patient's estimated GFR [...] Sloan MD CHEMISTRY ORDERABLES Final R esult [facility] [address] [place] [address] from Last 3 Months or Most Recently Relevant [place] [id number] [facility] Care Teams Community Health Representative Relationship Specialty Start Date End Date Harsha Joyce MD [facility] [address] [place] [address] PCP - General 06/25/10
--- OUTSIDE RECORDS SUMMARY | 2025-02-28 08:02 | XMS_ITS | Patient Health Record ---
Author Organization [facility] Address [address] [place] [address] Care Team Providers Care Inspector Brake Lining Name Role Phone Isiah (RETIRED) Harsha BUENO Primary Care Provide r Unavailable Neto Fam Unavailable [phone] Allergies No Known Allergies Reason For Referral [...] Problem Status W/U Status Risk Notes Problem 840041831 Encounter for screening for malignant neoplasm of colon (Z12.11) Active confirmed Problem Dysphagia (98681219) Dysphagia (R13.10) Active confirmed Problem Esophageal obstruction (K22.2) Active confirmed Problem 457501046242226 Preprocedural examination (Z01.818) Active confirmed Problem Diverticulosis of sigmoid colon (546548635) Diverticulosis of sigmoid colon (K57.30) Active confirmed Problem Benign esophageal stricture (980647218) Benign esophageal stricture (K22.2) Active confirmed Problem Chronic GERD (K21.9) Active confirmed Vital Signs Blood pressure diastolic 00 mm Hg 05/17/2024 Height 71 in 05/17/2024 Blood pressure systolic 00 mm Hg 05/17/2024 Weight 201 lbs 05/17/2024 BMI 28.03 kg/m2 05/17/2024 Encounters Encounter Location Date Provider Diagnosis [facility] [address] [place] [address] 05/17/2024 Neto Fam Benign esophageal stricture K22.2 [...] Insured Coverage Start Date Coverage End Date [facility] [address] [facility] [place] [phone] [id number] ROSMERY LEONE Self - patient is the insured Medical (General) History Medical History History ICD Code GERD-last EGD in 2000--no esophagitis no r Fleming's Denies [place],DM,CVA,Lung disease,renal dise ase Seasonal allergies BPH Colonoscopy [...]
--- NOTE | 2025-02-28 08:10 | CA_ITS ---
Transthoracic Echocardiogram Patient (Last, First, Middle): Andrez Ruiz E Gender: Male Date of : 1960 Age: 64 Procedure Date: 02/28/2025 Procedure Type: Transthoracic Echocardiogram Location: OP Height: 180.34 cm Weight: 92.08 kg BSA: 2.12 m2 Heart Rate: bpm BP: 116 / 60 mmHg Manager Of Procurement: Referring MD: Jeff Reyes MD Sales Forecast Analyst: Jeff Reyes MD Symptoms: I35.0 - Nonrheumatic aortic (valve) stenosis Study Quality: Fair ECG Rhythm: Sinus, LBBB Conclusions: - 1. Normal LV ejection fraction at 55-60% with impaired relaxation filling pattern 2. Early mild aortic stenosis 3. Mildly dilated left atrium 4. Normal RV systolic pressure 5. No gross pericardial effusion Findings Left Ventricle Normal left ventricular size, thickness, and systolic function. The visually estimated ejection fraction is between 55-60%. There is paradoxical septal motion consistent with a left bundle branch block. Spectral Doppler is indicative of an impaired relaxation filling pattern. E/E prime ratio is between 8 and 15 consistent with indeterminate filling pressures. Right Ventricle Mildly increased right ventricular cavity size. There is normal right ventricular systolic function. Atria The left atrium is mildly dilated. There is no evidence of interatrial shunt. The right atrium is normal in size. Aortic Valve There is mild calcification of the aortic valve. There is mild aortic valve stenosis. There is mild aortic valve regurgitation. Mitral Valve There is mild anterior and posterior mitral leaflet thickening. There is mild mitral valve regurgitation. There is no mitral valve stenosis. Pulmonic Valve The pulmonic valve was not well visualized. Tricuspid Valve Likely normal tricuspid valve structure and function. There is mild tricuspid valve regurgitation. The right ventricular systolic pressure is normal. The right ventricular systolic pressure is 18 mmHg. Normal right atrial pressure. There is no evidence of pulmonary hypertension. Great Vessels The pulmonary artery was not well visualized. There is no dilatation of the ascending aorta measuring 3.20 cm. Small plaque is seen in the sino tubular ridge. Venous The inferior vena cava is normal in size and collapses greater than 50% with inspiration. Pericardium/Pleural There is no evidence of pericardial effusion. Prior Study Comparison No significant change compared to prior study dated: 08/10/2023. Measurements 2D Linear Measurements IVSd: 1.11 0.6-0.9/0.6-1.0 cm LVIDd: 5.04 3.9-5.3/4.2-5.9 cm LVIDd Index: 2.38 2.4-3.2/2.2-3.1 cm/m2 LVIDs: 3.40 2.0-3.6 cm LVPWd: 1.12 0.7-1.1 cm Ao Root: 3.10 2.1-3.5 cm LA Diam: 4.20 2.7-3.8/3.0-4.0 cm LAIDs Index: 1.98 1.5-2.3 cm/m2 LV Mass: 266.47 67-162/88-224 g LV Mass Index: 125.69 43-95/49-115 g/m2 LVOT Diam: 2.20 3.0+(-)1.3 cm 2D Systolic Function EF 4C: 53.40 >55% EF 2C: 61.60 >55% EF BiP: 55.50 >55% Mitral Valve MV Pk E: 0.74 MV PK A: 0.96 MV Decel Time: 210.00 E/A: 0.80 E'Lateral: 8.49 E'Medial: 5.98 E/E' Med: 12.40 E/E' Lat: 8.70 PHT: 62.00 MVA PHT: 3.55 Decel Mcminn: 3.53 Aortic Valve AoV Pk Jeff: 1.54 AoV Mn Jeff: 0.98 AoV VTI: 0.40 AoV Pk Grad: 9.00 Aov Mn Grad: 5.00 NEGIN Cont.VTI: 1.80 LVOT LVOT Pk Jeff: 0.76 LVOT Mn Jeff: 0.47 LVOT VTI: 0.19 LVOT Pk Grad: 2.00 LVOT Mn Grad: 1.00 LVOT Diam: 2.20 LVOT Area: 3.80 Diastolic Function MV Pk E: 0.74 MV Pk A: 0.96 E/A: 0.80 E'Medial: 5.98 E/E' Med: 12.40 E' Laterial: 8.49 E/E' Lat: 8.70 Right Ventricle TAPSE (mm): 32.00 TVS' Jeff: 12.00 Tricuspid Valve TR Pk Jeff: 1.93 TR Pk Grad: 15.00 RA Press: 3.00 RVSP: 18.00 Great Vessels Aorta Ao Root-2D: 3.10 2.0-3.7 cm Ao Asc: 3.20 2.1-3.4 cm Pulmonary Valve PV Pk Jeff: 1.33 Peak PV Grad: 7.00 Updated in Other Vendor System with Status of Final Jeff Reyes MD electronically signed on 02/28/2025 12:11:28 PM with status of Final
== END ==
LOC: HO.CARD 07:59
PROVIDERS: PCP Internal Medicine; Visit Provider Internal Medicine Cardiovascular Disease
DX: I35.0 Nonrheumatic aortic (valve) stenosis (principal)
CPT/HCPCS: 93306

== ENCOUNTER → 2025-02-28 08:10 | Outpatient (BNV) | payer OTHER, SELFPAY | PROVIDERS: PCP Internal Medicine; Visit Provider Internal Medicine Cardiovascular Disease | DX: I35.0 Nonrheumatic aortic (valve) stenosis (principal) | CPT/HCPCS: 93306 ==

== ENCOUNTER 2025-03-07 08:09 | Outpatient (AMB) | payer OTHER, SELFPAY ==
--- OUTSIDE RECORDS SUMMARY | 2025-03-07 08:15 | XMS_ITS | Patient Health Record ---
Author Organization [facility] Address [address] [place] [address] Care Team Providers Care Drafter Apprentice Name Role Phone Isiah (RETIRED) Harsha BUENO Primary Care Provide r Unavailable Neto Fam Unavailable [phone] Allergies No Known Allergies Reason For Referral [...] Problem Status W/U Status Risk Notes Problem [id number] Encounter for screening for malignant neoplasm of colon (Z12.11) Active confirmed Problem Dysphagia (97102766) Dysphagia (R13.10) Active confirmed Problem Stricture of esophagus (37735901) Esophageal obstruction (K22.2) Active confirmed Problem [id number] Preprocedural examination (Z01.818) Active confirmed Problem Diverticulosis of sigmoid colon (426620498) Diverticulosis of sigmoid colon (K57.30) Active confirmed Problem Benign esophageal stricture (392622679) Benign esophageal stricture (K22.2) Active confirmed Problem Gastroesophageal reflux disease (disorder) (799653564) Chronic GERD (K21.9) Active confirmed Vital Signs Blood pressure diastolic 00 mm Hg 05/17/2024 Height 71 in 05/17/2024 Blood pressure systolic 00 mm Hg 05/17/2024 Weight 201 lbs 05/17/2024 BMI 28.03 kg/m2 05/17/2024 Encounters Encounter Location Date Provider Diagnosis [facility] [address] [place] [address] 05/17/2024 Neto Fam Benign esophageal stricture K22.2 [...] Insured Coverage Start Date Coverage End Date [facility] [address] [place] [address] [phone] [id number] ROSMERY LEONE Self - patient is the insured Medical (General) History Medical History History ICD Code GERD-last EGD in 2000--no esophagitis no r Fleming's Denies AL,DM,CVA,Lung disease,renal dise ase Seasonal allergies BPH Colonoscopy [...]
--- OUTSIDE RECORDS SUMMARY | 2025-03-07 08:16 | XMS_ITS | Clinical Summary ---
Author Organization [facility] [place] [address] Care Team Providers Care Prefabricator Name Role Phone Harsha Joyce MD Primary Care Provider [phone] Allergies No known active allergies Medications aspirin [...] EDT) Glucose 90 65 - 199 mg/dL [facility] Comment:Diabetes: >=200 mg/d L plus symptoms Blood Urea Nitrogen 21(H) 10 - 20 mg/dL [facility] Creatinine 1.18 0.80 - 1.50 mg/dL [facility] Sodium 140 135 - 145 mmol/L [facility] Potassium 3.8 3.5 - 5.0 mmol/L [facility] Comment: Please note: Patients with WBC >100,000 may have falsely elevated Potassium levels. For accurate Potassium quantification in these patients send serum separator tube (gold top) for subsequent determinations. Contact the Clinical Chemistry Laboratory if there are any questions. Chloride 104 98 - 107 mmol/L [facility] Carbon Dioxide 23 22 - 31 mmol/L [facility] Anion Gap 13 5 - 15 mmol/L [facility] Calcium 9.8 8.5 - 10.5 mg/dL [facility] Est Glomerular Filtration Rate 69 >=60 mL/min/1. 73 m [facility] Comment: This patient's estimated GFR [...] Sloan MD CHEMISTRY ORDERABLES Final R esult [facility] [address] [place] [address] from Last 3 Months or Most Recently Relevant [place] [id number] [facility] Care Teams Prefabricator Relationship Specialty Start Date End Date Harsha Joyce MD [facility] [phone] [place] [address] PCP - General 06/25/10
[2025-03-07 08:27] VITALS: BP 140/78; PULSE 42; BMI 28.0
--- NOTE | 2025-03-07 08:27 | A.OFFVIS_ITS ---
Vital Signs 03/07/25 08:27 Height 5 ft 11 in Weight 200 lb 9.93 oz BMI 28.0 BP 140/78 H Blood Pressure Location Lt brachial Position Sitting Pulse 42 L Pulse Source Monitor Intake Visit Reasons: 1 yr f/up s/p echo Allergies perflutren Adverse Reaction (Verified 01/09/25 10:24) Back Pain Medication List - Last Reconciled 03/07/25 by Jeff Reyes MD albuterol sulfate 90 mcg/actuation 90 mcg inhalation Q4H PRN aspirin 81 mg PO DAILY metoprolol succinate ER 100 mg PO DAILY omeprazole 40 mg PO DAILY PRN HPI Comments Details: Andrez comes for follow-up. He said overall he has been doing well. He is accompanied by his . He said he has no exertional symptoms when he exercise although he does not get to exercise much often but he can walk for few miles without having any symptoms exertional chest pain or shortness of breath. He is still bothered by rapid heart rate intermittently. He said these symptoms come in the cluster and can last for few days to a week and then disappear and not happen for few months. Symptoms Mibi related to increased stress he is not clear. However says when he gets these symptoms of palpitation monitors his pulse he notices that his heart rate is steady in the 60s. He denies any lighth eadedness, syncope. No exertional chest pain. Recent echocardiogram shows normal LV ejection fraction with early mild aortic stenosis. He does complain of symptoms of fatigue overall pressure when he comes back from work but also with exertional sometimes. He denies any lightheadedness, syncope. [facility] Medical History Rash and nonspecific skin eruption Seasonal allergies BPH (benign prostatic hyperplasia) Elevated PSA GERD (gastroesophageal reflux disease) Surgical History History of prostate surgery Hx of nasal polypectomy History of left inguinal hernia repair Hx of colonoscopy (~04/15/21) History of esophagogastroduodenoscopy (EGD) Family History Mother No problems noted. Father No problems noted. Social History Housing: House Are you a primary respiratory care specialist to a significant other at home: No Alcohol intake: current Alcohol intake frequency: holidays/special occasions only Patient Tobacco Use Status: Former Tobacco user e-Cigarette/Vaping Use: Former Use service: No Current occupational status: employed Cognitive needs: No Hearing needs: No Vision needs: Yes (rx glasses) Review of Systems Const Denies weakness ENT Denies dizziness Card Denies chest pain, Denies chest pain with activity, Denies syncope, Denies rapid heart rate, Denies pedal edema, Denies edema, Denies leg edema, Denies lightheadedness, Denies palpitations, Denies dyspnea, Denies dyspnea on exertion and Denies orthopnea Resp Denies cough, Denies dyspnea and Denies dyspnea on exertion GI Denies hematochezia and Denies change in stool character Musc Denies abnormal gait, Denies muscle cramps, Denies muscle weakness, Denies numbness, Denies radiating pain into limb and Denies tingling Neuro Denies Abnormal speech present, Denies abnormal gait, Denies dizziness, Denies syncope, Denies numbness, Denies tingling and Denies weakness Endo Denies palpitations Physical Exam Vital Signs: Last Vital Signs Pulse 42 L 03/07/25 08:27 BP 140/78 H 03/07/25 08:27 BMI result Body Mass Index 28.0 Const General: cooperative, comfortable, no acute distress, alert, awake, Physically active and anxious Nutritional Appearance: average body habitus Orientation/consciousness: patient oriented x3 Limitations: no limitations Neck Neck: Yes trachea midline, Yes supple and Yes no JVD Resp Effort & Inspection: normal respiratory effort Auscultation: clear to auscultation bilaterally Cardio Jugular venous distension: no JVD Palpation: normal PMI Rate: regular rate Rhythm: regular rhythm Heart sounds: S1 normal heart sound present, S2 normal heart sound present, no click, no gallops, Murmur heart sound present systolic early and no rubs GI Auscultation: normal bowel sounds Skin General skin exam: no rashes or lesions noted Neuro General: patient oriented x3 and no focal motor deficits Speech: No Abnormal speech present Extrem General: Yes no clubbing, cyanosis or edema Psych Affect: Anxious affect present Office Procedures EKG Details: EKG shows marked sinus bradycardia with sinus arrhythmia with poor R-wave progression most likely lead placement [id number], Complete Results Reviewed Results Reviewed: Conclusions: - 1. Normal LV ejection fraction at 55-60% with impaired relaxation filling pattern 2. Early mild aortic stenosis 3. Mildly dilated left atrium 4. Normal RV systolic pressure 5. No gross pericardial effusion Assessment & Plan Assessment & Plan (1) SVT (supraventricular tachycardia): Code(s): I47.10 - Supraventricular tachycardia, unspecified Category: Medical Plan: Prior history of SVT more or less controlled without any prolonged episode of fast heart rate on metoprolol therapy. Although he is having some side effects and will reduce metoprolol therapy. However continues to have intermittent symptoms of palpitation at nighttime that come in clusters. They are most suggestive of extra systoles. Suggest him to invest in EKG sensor that will help with diagnose office and further guide treatment. He is agreeable. Avoidance of stimulants was discussed. Stress mitigation strategies were discussed. (2) Aortic stenosis: Code(s): I35.0 - Nonrheumatic aortic (valve) stenosis Category: Medical Plan: Aortic stenosis remains mild. No interventions required. Will continue follow up clinically in 1 year's time. Continue aspirin therapy. Continue goal LDL less than 100 mg/dL. Encouraged to continue to participate in physical activity as tolerated. Echocardiogram in 2 years. (3) Sinus bradycardia: Code(s): R00.1 - Bradycardia, unspecified Category: Medical Plan: Noted sinus bradycardia which is quite significant. He does have symptoms fatigue which could be related to metoprolol therapy. Therefore discussed with him about reducing metoprolol to 75 mg daily. Will monitor closely. Advised to call me in I month's time to see if there has improvement in his baseline heart rate and improvement in his symptoms. He understands and agrees. Will follow up in the clinic in 1 year's time, sooner p.r.n.. Thank you for allowing me to partake in his care Medications: New metoprolol succinate ER (Toprol XL) 75 mg (1.5 x 50 mg) PO DAILY 60 tabs 0RF Discontinued metoprolol succinate ER Discontinued Reason: Doctor's Order 100 mg PO DAILY 90 tabs 3RF Coding Level of Care Code Est Pt Level 4 (78650) Complex EM visit Add On G2211 Diagnoses SVT (supraventricular tachycardia) I47.10 Aortic stenosis I35.0 Sinus bradycardia R00.1 CPT Codes EKG - CPT: 47649-[id number], Complete ([id number])
== END 2025-03-07 08:50 | disposition home or self-care (01) ==
LOC: HO.HCS 08:10
PROVIDERS: PCP Internal Medicine; Visit Provider Internal Medicine Cardiovascular Disease
DX: I47.10 Supraventricular tachycardia, unspecified (principal); I35.0 Nonrheumatic aortic (valve) stenosis; R00.1 Bradycardia, unspecified
CPT/HCPCS: 93010; 99214; G2211

== ENCOUNTER → 2025-03-07 08:09 | Outpatient (BNVA) | payer OTHER, SELFPAY | PROVIDERS: PCP Internal Medicine; Visit Provider Internal Medicine Cardiovascular Disease | DX: I47.10 Supraventricular tachycardia, unspecified (principal) | CPT/HCPCS: 93005 ==

== ENCOUNTER 2025-04-17 12:03 | Outpatient (REF) | payer OTHER, SELFPAY ==
--- OUTSIDE RECORDS SUMMARY | 2023-12-15 03:30 | XMS_ITS ---
Author Organization [facility] Address [address] [place] [address] Care Team Providers Care Solar Photovoltaic Electrician Name Role Phone Isiah (RETIRED) Harsha BUENO Primary Care Provide Nteo Ferreira Unavailable [phone] REASON FOR VISIT dysphagia Problems Problem Type SNOMED Code ICD Code Onset Dates Problem Status W/U Status Risk Notes Problem Stricture of esophagus (84749910) Esophageal obstruction (K22.2) Active confirmed Encounters Encounter Location Date Provider Diagnosis [facility] Outpatient [address] [place], [place] [phone] 12/15/2023 Neto Fam Esophageal obstruc tion K22.2 ; Dysphagia R13.10 and Hiatal hernia K44.9 Assessments Encounter Date Diagnosis (ICD Code) Assessment Notes Treatment Notes Treatment Clinical Notes Section Notes 12/15/2023 Esophageal obstruction (ICD-10 - K22.2) 12/15/2023 Dysphagia (ICD-10 - R13.10) 12/15/2023 Hiatal hernia (ICD-10 - K44.9) Plan Of Treatment No Information Progress Notes * ROSMERY LEONE EDOB:1959 (65 yo M)Acc No.[id number]:12/15/2023 EGD/MAC Patient: ROSMERY CHAN Tung Provider: Sarah Fam MD :1960 A ge:63 Y S ex:Male Date:12/15/2023 Address:[address] [place], [place] [phone] Pcp:Harsha Joyce (RETIRED )MD Subjective: * Chief Complaints: * 1 . Dysphagia. * Medical History: Objective: * Vitals: Assessment: * Assessment: 1. E sophageal obstruction - K22.2 (Primary) 2 . D ysphagia - R13.10 ? 3 . H iatal hernia - K44.9 Plan: * Treatment: * Procedure Codes: 4 3249 ESOPH ENDOSCOPY, DILATION * * The named appointment provid er may or may not be the originator of this progress note, and it is not deemed complete until electronically signed by the appointment provider. Sign off status: Pending * Provider: Sarah Fam MD Date: 0 12/15/2023 Generated for Krupa cannon/Erik/Forrestitting on: 0 04/17/2025 04:41 PM EDT
[2025-04-17 14:31] LABS: PSA,Total (Free>4and<10) 7.82 ng/mL (0.00-4.00)
--- OUTSIDE RECORDS SUMMARY | 2025-04-17 16:41 | XMS_ITS | Patient Health Record ---
Author Organization [facility] Address [address] [place] [address] Care Team Providers Care Crib Pad Maker Name Role Phone Isiah (RETIRED) Harsha BUENO Primary Care Provide r Unavailable Neto Fam Unavailable [phone] Allergies No Known Allergies Reason For Referral [...] Problem Status W/U Status Risk Notes Problem [id number] Encounter for screening for malignant neoplasm of colon (Z12.11) Active confirmed Problem Dysphagia (74447469) Dysphagia (R13.10) Active confirmed Problem Stricture of esophagus (51743382) Esophageal obstruction (K22.2) Active confirmed Problem [id number] Preprocedural examination (Z01.818) Active confirmed Problem Diverticulosis of sigmoid colon (548896202) Diverticulosis of sigmoid colon (K57.30) Active confirmed Problem Benign esophageal stricture (117447086) Benign esophageal stricture (K22.2) Active confirmed Problem Gastroesophageal reflux disease (disorder) (650608893) Chronic GERD (K21.9) Active confirmed Vital Signs Blood pressure diastolic 00 mm Hg 05/17/2024 Height 71 in 05/17/2024 Blood pressure systolic 00 mm Hg 05/17/2024 Weight 201 lbs 05/17/2024 BMI 28.03 kg/m2 05/17/2024 Encounters Encounter Location Date Provider Diagnosis [facility] [address] [place] [address] 05/17/2024 Neto Fam Benign esophageal stricture K22.2 [...] Insured Coverage Start Date Coverage End Date [facility] [address] [place] [address] [id number] ROSMERY LEONE Self - patient is the insured Medical (General) History Medical History History ICD Code GERD-last EGD in 2000--no esophagitis no r Fleming's Denies SD,DM,CVA,Lung disease,renal dise ase Seasonal allergies BPH Colonoscopy [...]
--- OUTSIDE RECORDS SUMMARY | 2025-04-17 16:41 | XMS_ITS | Clinical Summary ---
[facility] [place] [address] Care Team Providers Care Direct Response Consultant Name Role Phone Harsha Joyce MD Primary Care Provider [phone] Allergies No known active allergies Medications aspirin [...] year) with FIT yearly 1960 Sigmoidoscopy 1960 Hepatitis C Screening 1977 Lipid Screening 1977 Tetanus/Diphtheria/Pertussis Vaccines (1 - Tdap) 03/06 Pneumoccocal Vaccine: 50+ (1 of 1 - PCV) 2009 Zoster vaccine (1 of 2) 2009 Advance Directive 2014 Covid-19 Vaccine (1 - season) 2025 Influenza (Flu) vaccine (1 o f 1 - Influenza standard series) 04/03/2025 Diabetes Screening (HgbA1C or Glucose) Discontinued Procedures Procedure Name Priority Date/Time Associated Diagnosis Comments BASIC METABOLIC PANEL STAT 03/15/2022 1:40 PM EDT from Last 3 Months or Most Recently Relevant to Health Maintenance Results * (ABNORMAL) Basic Metabolic Panel (non-fasting) (03/15/2022 1:40 PM EDT) Glucose 90 65 - 199 mg/dL [facility] Comment:Diabetes: >=200 mg/d L plus symptoms Blood Urea Nitrogen 21(H) 10 - 20 mg/dL [facility] Creatinine 1.18 0.80 - 1.50 mg/dL [facility] Sodium 140 135 - 145 mmol/L [facility] Potassium 3.8 3.5 - 5.0 mmol/L [facility] Comment: Please note: Patients with WBC >100,000 may have falsely elevated Potassium levels. For accurate Potassium quantification in these patients send serum separator tube (gold top) for subsequent determinations. Contact the Clinical Chemistry Laboratory if there are any questions. Chloride 104 98 - 107 mmol/L [facility] Carbon Dioxide 23 22 - 31 mmol/L [facility] Anion Gap 13 5 - 15 mmol/L [facility] Calcium 9.8 8.5 - 10.5 mg/dL [facility] Est Glomerular Filtration Rate 69 >=60 mL/min/1. 73 m [facility] Comment: This patient's estimated [...] Sloan MD CHEMISTRY ORDERABLES Final R esult [facility] [address] [place] [address] from Last 3 Months or Most Recently Relevant to Health Maintenance Insurance [facility] Care Teams Direct Response Consultant Relationship Specialty Start Date End Date Harsha Joyce MD [facility] [address] [address] PCP - General 06/25/10
[2025-04-18 11:53] LABS: Free Prostate Spec Ag 1.2 ng/mL; Percent Free Prostate Spec Ag 14 % (calc) (>25)
== END 2025-04-17 12:04 | disposition home or self-care (01) ==
LOC: HO.HMGCLDS 12:03
PROVIDERS: PCP Internal Medicine; Visit Provider Urology
DX: R97.20 Elevated prostate specific antigen [PSA] (principal); Z12.5 Encounter for screening for malignant neoplasm of prostate
CPT/HCPCS: 36415; 84153; 84154

== ENCOUNTER 2025-04-26 09:26 | Outpatient (AMB) | payer OTHER, SELFPAY ==
--- OUTSIDE RECORDS SUMMARY | 2023-12-15 03:30 | XMS_ITS ---
Author Organization [facility] Address [address] [place] [address] Care Team Providers Care School Guard Name Role Phone Isiah (RETIRED) Harsha BUENO Primary Care Provide Neto Ferreira Unavailable [phone] REASON FOR VISIT dysphagia Problems Problem Type SNOMED Code ICD Code Onset Dates Problem Status W/U Status Risk Notes Problem Stricture of esophagus (58593168) Esophageal obstruction (K22.2) Active confirmed Encounters Encounter Location Date Provider Diagnosis [facility] Outpatient [address] [place], [place] [phone] 12/15/2023 Neto Fam Esophageal obstruc tion K22.2 ; Dysphagia R13.10 and Hiatal hernia K44.9 Assessments Encounter Date Diagnosis (ICD Code) Assessment Notes Treatment Notes Treatment Clinical Notes Section Notes 12/15/2023 Esophageal obstruction (ICD-10 - K22.2) 12/15/2023 Dysphagia (ICD-10 - R13.10) 12/15/2023 Hiatal hernia (ICD-10 - K44.9) Plan Of Treatment No Information Progress Notes * ROSMERY LEONE EDOB:1959 (65 yo M)Acc No.[id number]:12/15/2023 EGD/MAC Patient: ROSMERY CHAN Tung Provider: Sarah Fam MD :1960 A ge:63 Y S ex:Male Date:12/15/2023 Address:[address] [place], [place] [phone] Pcp:Harsha Joyce (RETIRED )MD Subjective: * Chief [...] 12/15/2023 Generated for Krupa cannon/Erik/Forrestitting on: 0 04/26/2025 11:15 AM EDT
--- NOTE | 2025-04-26 09:31 | MHC.OFFVIS ---
Intake Visit Reasons: 6m/PSA/PVR Intake Note: Patient is present for 6M/PSA Urology Medication:NONE Antibiotic Allergy:NONE Blood Thinner:ASPIRIN Labs done : 04/17/25 PSA Total 7.82 PVR : 206 mls Punch Machine Hand Required: No Accompanied by: Self / Same As Patient Allergies perflutren Adverse Reaction (Verified 04/26/25 09:32) Back Pain HPI Comments Details: Kameron is a very pleasant male. He is a patient of Dr. Joyce. He is seen for the following urologic condition - elevated PSA - episode of urinary retention Six-month follow-up PSA jump over last year from 5.6-8.7 Recommend prostate biopsy Urinary stream, feeling empty, nocturia x1 sleeps 5-6 hours before waking Prior 03/25 [facility] - Pathology chronic inflammation Elevated PSA/LUTS Episode of urinary retention October 2022 Found to have elevated PSA on regular follow-up with PCP Initial therapy trial of finasteride - Improvement of frequency and weakness of stream with finasteride Intervention - 03/25 [facility] laser prostatectomy - pathology chronic inflammation PSA - 12/21 5.9, 05/23 3.8, 11/22 2.7, 11/23 10.53, 02/21 4.3 12%, 10/24 5.3 F 14%, 06/26 5.6 16%, 10/25 5.3, 04/27 8.7 14% Plan to continue with interval surveillance [facility] Medical History Rash and nonspecific skin eruption Seasonal allergies BPH (benign prostatic hyperplasia) Elevated PSA GERD (gastroesophageal reflux disease) Surgical History History of prostate surgery Hx of nasal polypectomy History of left inguinal hernia repair Hx of colonoscopy (~04/15/21) History of esophagogastroduodenoscopy (EGD) Family History Mother No problems noted. Father No problems noted. Social History Housing: House Are you a primary assisted living care manager to a significant other at home: No Alcohol intake: current Alcohol intake frequency: holidays/special occasions only Patient Tobacco Use Status: Former Tobacco user e-Cigarette/Vaping Use: Former Use service: No Current occupational status: employed Cognitive needs: No Hearing needs: No Vision needs: Yes (rx glasses) Review of Systems Const Denies chills and Denies fever(s) Card Reports no additional complaints and Denies syncope Resp Denies cough GI Denies abdominal pain and Denies heartburn Reports as per HPI and Denies change in libido Neuro Denies syncope Psych Denies change in libido Endo Denies change in libido Physical Exam Const General: cooperative, healthy appearing, comfortable and no acute distress Orientation/consciousness: patient oriented x3 HEENT Face and sinus: Yes normal facial exam Mouth: moist mucous membranes Neck Neck: Yes normal visual inspection, Yes full ROM and Yes trachea midline Chest Chest palpation & inspection: normal inspection of the chest Resp Effort & Inspection: normal respiratory effort, able to speak in complete sentences and no respiratory distress GI Inspection: Yes normal to inspection Back/Spine/Pelvis Cervical Spine: normal cervical lordosis Thoracic/Lumbar Spine: thoracic and lumbar spine normal to inspection Skin General skin exam: no rashes or lesions noted Neuro General: patient oriented x3, gait normal, tone normal and moves all extremities Extrem General: Yes normal to inspection and Yes capillary refill normal Assessment & Plan Assessment & Plan (1) Elevated PSA: Code(s): R97.20 - Elevated prostate specific antigen [PSA] Category: Medical Plan Risks and benefits regarding trans rectal ultrasound with prostate biopsy were discussed. Options of continued surveillance, no treatment and biopsy were offered. The risks include but are not limited to, urinary tract infection, sepsis, difficulty urinating, bleeding into the rectum or bladder that requires intervention and transfusion,and failure to diagnose prostate cancer. The patient understands the options and the risks involved. They wish to proceed. Printed information was provided to ensure he remains off anticoagulation for the appropriate length of time. He may require cardiology or PCP clearance. An antibiotic will be administered prior to, and following the procedure Medications: New levofloxacin take 1 tablet day before procedure, 1 tablet day of procedure and 1 tablet day after procedure 500 mg PO DAILY 3 tabs 0RF 3 days R97.20 - Elevated prostate specific antigen [PSA] Patient Instructions: This note is constructed using voice recognition software. While every effort has been made to ensure accuracy loss prevention operations manager errors may have been included. Imaging studies, laboratory and physical exam results were discussed and reviewed in detail. No major barriers to patient understanding were identified. An opportunity to ask questions regarding the treatment plan was provided. All questions were answered. The patient expressed understanding and agreement with the above treatment plan. The patient is aware they should contact our office by phone for worsening of their current condition or the appearance of new urologic symptoms. Compliance is encouraged with any medications and followup testing that is ordered. It is a privilege to participate in the urologic care of your patient. If you have any questions or concerns regarding treatment for the above conditions, or other urologic issues, please do not hesitate to contact me. The office telephone contact is [phone]. Sincerely, Dr Doug Macias MD, [facility] - Urology Compassionate Specialist Care for the Genitourinary System Coding Level of Care Code Est Pt Level 4 (25099) Diagnoses Elevated PSA R97.20
--- OUTSIDE RECORDS SUMMARY | 2025-04-26 11:15 | XMS_ITS | Patient Health Record ---
Author Organization [facility] Address [address] [place] [address] Care Team Providers Care Handkerchief Folder Name Role Phone Isiah (RETIRED) Harsha BUENO Primary Care Provide r Unavailable Neto Fam Unavailable [phone] Allergies No Known Allergies Reason For Referral [...] Problem Status W/U Status Risk Notes Problem 236837231 Encounter for screening for malignant neoplasm of colon (Z12.11) Active confirmed Problem Dysphagia (76026015) Dysphagia (R13.10) Active confirmed Problem Stricture of esophagus (51243019) Esophageal obstruction (K22.2) Active confirmed Problem [id number] Preprocedural examination (Z01.818) Active confirmed Problem Diverticulosis of sigmoid colon (151184237) Diverticulosis of sigmoid colon (K57.30) Active confirmed Problem Benign esophageal stricture (416315123) Benign esophageal stricture (K22.2) Active confirmed Problem Gastroesophageal reflux disease (disorder) (140843042) Chronic GERD (K21.9) Active confirmed Vital Signs Blood pressure diastolic 00 mm Hg 05/17/2024 Height 71 in 05/17/2024 Blood pressure systolic 00 mm Hg 05/17/2024 Weight 201 lbs 05/17/2024 BMI 28.03 kg/m2 05/17/2024 Encounters Encounter Location Date Provider Diagnosis [facility] [address] [place] [address] 05/17/2024 Neto Fam Benign esophageal stricture K22.2 [...] Insured Coverage Start Date Coverage End Date [facility] [address] [place] [address] [id number] ROSMERY LEONE Self - patient is the insured Medical (General) History Medical History History ICD Code GERD-last EGD in 2000--no esophagitis no r Fleming's Denies PR,DM,CVA,Lung disease,renal dise ase Seasonal allergies BPH Colonoscopy [...]
--- OUTSIDE RECORDS SUMMARY | 2025-04-26 11:15 | XMS_ITS | Clinical Summary ---
[facility] [place] [address] Care Team Providers Care Supervisor [place] Name Role Phone Harsha Joyce MD Primary Care Provider [phone] Allergies No known active allergies Medications aspirin [...] EDT) Glucose 90 65 - 199 mg/dL [facility] Comment:Diabetes: >=200 mg/d L plus symptoms Blood Urea Nitrogen 21(H) 10 - 20 mg/dL [facility] Creatinine 1.18 0.80 - 1.50 mg/dL [facility] Sodium 140 135 - 145 mmol/L [facility] Potassium 3.8 3.5 - 5.0 mmol/L [facility] Comment: Please note: Patients with WBC >100,000 may have falsely elevated Potassium levels. For accurate Potassium quantification in these patients send serum separator tube (gold top) for subsequent determinations. Contact the Clinical Chemistry Laboratory if there are any questions. Chloride 104 98 - 107 mmol/L [facility] Carbon Dioxide 23 22 - 31 mmol/L [facility] Anion Gap 13 5 - 15 mmol/L [facility] Calcium 9.8 8.5 - 10.5 mg/dL [facility] Est Glomerular Filtration Rate 69 >=60 mL/min/1. 73 m [facility] Comment: This patient's estimated GFR was [...] Sloan MD CHEMISTRY ORDERABLES Final R esult [facility] [address] [place] [address] from Last 3 Months or Most Recently Relevant to Health Maintenance Insurance [facility] Care Teams Supervisor [place] Relationship Specialty Start Date End Date Harsha Joyce MD [facility] [address] [address] PCP - General 06/25/10
== END 2025-04-26 10:18 | disposition home or self-care (01) ==
LOC: HO.HUSH 09:27
PROVIDERS: PCP Internal Medicine; Visit Provider Urology
DX: Z13.9 Encounter for screening, unspecified (principal); R97.20 Elevated prostate specific antigen [PSA]
CPT/HCPCS: 99214

== ENCOUNTER → 2025-04-26 09:26 | Outpatient (BNVA) | payer OTHER, SELFPAY | PROVIDERS: PCP Internal Medicine; Visit Provider Urology | DX: N40.0 Benign prostatic hyperplasia without lower urinary tract symptoms (principal); R33.9 Retention of urine, unspecified; R97.20 Elevated prostate specific antigen [PSA]; Z13.9 Encounter for screening, unspecified | CPT/HCPCS: 51798; 81003 ==

== ENCOUNTER 2025-05-11 07:38 | Outpatient (REF) | payer OTHER, SELFPAY ==
[2025-05-11] MEDS: Lidocaine HCl 1 % MPF 30 ML VIAL SUBCUT (08:16)
--- NOTE | 2025-05-11 08:38 | P.OP_ITS ---
Operative Note Operative Note Date of Service: 05/11/25 Narrative: Preoperative diagnosis: Elevated PSA Postoperative diagnosis: Elevated PSA Procedure: 1. transrectal ultrasound measurement of prostate 2. transrectal ultrasound-guided pudendal nerve block 3. transrectal ultrasound-guided prostate biopsy 12 core Surgeon: Dr. Doug Macias Anesthetic: 10cc 1% lidocaine Indications for procedure: Elevated PSA Counselling: Technical aspects, risks and benefits of proposed procedure were discussed in full. All questions have been answered, written consent has been obtained and patient agrees to proceed. Procedure: The patient was brought into the procedure area and placed in a left lateral decubitus position. Patient identity confirmed. Perioperative antibiotics confirmed. Safety pause time out performed. MADDY was performed to dilate rectal sphincter Iodine 10cc with 60 cc gel was placed per rectum to reduce infection risk using a catheter tip syringe. 8 Hz Adelso rectal end-fire ultrasound probe was placed transrectally without difficulty. The prostate was visualized. Seminal vesicles were normal. Prostate margins were clearly demarcated. Bladder was seen superiorly. No cystic structures were noted Yes calcifications were noted at the surgical margin The prostate was otherwise heterogenous in nature - asymmetric prostate with large transitional zone The prostate was measured in 3 dimensions Prostatic Width: 5.6 cm Prostatic Height: 4.2 cm Urethral Length: 4.8 cm Total volume equals : 60 ml An ultrasound-guided pudendal nerve block was performed using a 22 gauge spinal needle in the sagittal plane. 4 cc of 1% lidocaine placed at the junction of each seminal vesicle and 2 cc placed at the apex of the prostate. A 12 core biopsy was performed with 6 cores each side using an 18 gauge prostate biopsy gun. Two cores each were taken at the prostate apex, mid and base on each side. Cores were spaced between lateral and medial aspects. Each core was examined as placed on specimen foam as part of clinical quality manager to ensure a minimum 1 cm of length and minimal discontinuity. He tolerated the procedure well with minimal rectal bleeding. Blood pressure remained stable following procedure. He was able to ambulate to bathroom after 5 minutes. Printed instructions regarding antibiotic use and common adverse events from the procedure such as low-grade temperature, potential infection and bleeding were given. He understands to call the office or go to an emergency room should any of these events arise. Pathology: 12 core prostate biopsy. CPT code 55922: Transrectal ultrasound; this is a diagnostic test for evaluation of the prostate and surrounding structures, looking for abnormalities or suspicious areas worrisome for cancer CPT code 59082: Biopsy, prostate; needle or punch, single or multiple, any approach CPT code 65450: Ultrasonic guidance for needle placement (eg, biopsy, aspiration, injection, localization device), imaging supervision and interpretation
== END 2025-05-11 07:39 | disposition home or self-care (01) ==
LOC: HO.US 07:38
PROVIDERS: Visit Provider Urology
DX: R97.20 Elevated prostate specific antigen [PSA] (principal)
CPT/HCPCS: 55700; 76942; 88305; J2003

== ENCOUNTER → 2025-05-11 07:38 | Outpatient (BNV) | payer OTHER, SELFPAY | PROVIDERS: Visit Provider Urology | DX: R97.20 Elevated prostate specific antigen [PSA] (principal) | CPT/HCPCS: 55700; 76872; 76942 ==

== ENCOUNTER 2025-05-31 14:36 | Outpatient (AMB) | payer OTHER, SELFPAY ==
--- OUTSIDE RECORDS SUMMARY | 2023-12-15 03:30 | XMS_ITS ---
Author Organization [facility] Address [address] [place] [address] Care Team Providers Care Farm Or Ranch Animal Caretaker Name Role Phone Isiah (RETIRED) Harsha BUENO Primary Care Provide Neto Ferreira Unavailable [phone] REASON FOR VISIT dysphagia Problems Problem Type SNOMED Code ICD Code Onset Dates Problem Status W/U Status Risk Notes Problem Stricture of esophagus (17321237) Esophageal obstruction (K22.2) Active confirmed Encounters Encounter Location Date Provider Diagnosis [facility] Outpatient [address] [place], [place] [id number] 12/15/2023 Neto Fam Esophageal obstruc tion K22.2 ; Dysphagia R13.10 and Hiatal hernia K44.9 Assessments Encounter Date Diagnosis (ICD Code) Assessment Notes Treatment Notes Treatment Clinical Notes Section Notes 12/15/2023 Esophageal obstruction (ICD-10 - K22.2) 12/15/2023 Dysphagia (ICD-10 - R13.10) 12/15/2023 Hiatal hernia (ICD-10 - K44.9) Plan Of Treatment No Information Progress Notes * ROSMERY LEONE EDOB:1959 (65 yo M)Acc No.[id number]:12/15/2023 EGD/MAC Patient: ROSMERY CHAN Tung Provider: Sarah Fam MD :1960 A ge:63 Y S ex:Male Date:12/15/2023 Address:[address] [place], [place] [id number] Pcp:Harsha Joyce (RETIRED )MD Subjective: * Chief [...] 0 12/15/2023 Generated for Krupa cannon/Erik/Forrestitting on: 1 06:57 PM EDT
--- NOTE | 2025-05-31 14:40 | A.OFFVIS_ITS ---
Intake Visit Reasons: Prostate biposy results Intake Note: Patient is present for Telephone Prostate Biopsy Results Screen Making Technician Required: No Accompanied by: Self / Same As Patient Allergies perflutren Adverse Reaction (Verified 04/26/25 09:32) Back Pain HPI Comments Details: Kameron is a very pleasant male. He is a patient of Dr. Joyce. He is seen for the following urologic condition - elevated PSA - episode of urinary retention Telemedicine Evaluation 15 min Consultation [employer] Video Prostate biopsy follow-up - biopsy negative Urinary stream, feeling empty, nocturia x1 sleeps 5-6 hours before waking Prior 03/25 [facility] - Pathology chronic inflammation Elevated PSA/LUTS Episode of urinary retention October 2022 Found to have elevated PSA on regular follow-up with PCP Initial therapy trial of finasteride - Improvement of frequency and weakness of stream with finasteride Intervention - 03/25 [facility] laser prostatectomy - pathology chronic inflammation PSA - 12/21 5.9, 05/23 3.8, 11/22 2.7, 11/23 10.53, 02/21 4.3 12%, 10/24 5.3 F 14%, 06/26 5.6 16%, 10/25 5.3, 04/27 8.7 14% Prostate biopsy 05/27 NAD Plan to continue with interval surveillance [facility] Medical History Rash and nonspecific skin eruption Seasonal allergies BPH (benign prostatic hyperplasia) Elevated PSA GERD (gastroesophageal reflux disease) Surgical History History of prostate surgery Hx of nasal polypectomy History of left inguinal hernia repair Hx of colonoscopy (~04/15/21) History of esophagogastroduodenoscopy (EGD) Family History Mother No problems noted. Father No problems noted. Social History Housing: House Are you a primary healthcare risk control consultant to a significant other at home: No Alcohol intake: current Alcohol intake frequency: holidays/special occasions only Patient Tobacco Use Status: Former Tobacco user e-Cigarette/Vaping Use: Former Use service: No Current occupational status: employed Cognitive needs: No Hearing needs: No Vision needs: Yes (rx glasses) Review of Systems Const All systems reviewed & are unremarkable except as noted in HPI and below Reports no additional complaints Resp Reports no additional complaints GI Reports no additional complaints Reports as per HPI Musc Reports no additional complaints Physical Exam Telemedicine evaluation Appropriate responses Regular breathing rate and rhythm HEENT Head: Yes normal to inspection Ears: hearing grossly normal bilaterally Eyes General: appearance normal, both eyes and all related structures Neck Neck: Yes normal visual inspection Chest Chest palpation & inspection: normal inspection of the chest Resp Effort & Inspection: normal respiratory effort and able to speak in complete sentences Telehealth Telehealth Telehealth Platform: [employer] Location of provider rendering services: practice address Location of patient: address on file Patient Identification confirmed using: Name, : Yes Telehealth method: voice only Patient verbally consented to treatment: Yes Patient verbally consented to billing insurance company: Yes Patient informed of any privacy concerns related to visit: Yes Minutes spent on Phone/Video with Pt.: 15 Assessment & Plan Assessment & Plan (1) Elevated PSA: Code(s): R97.20 - Elevated prostate specific antigen [PSA] Category: Medical Plan Six-month follow-up Orders: Orders PSA,Total (Free>4and<10) 6 Months R97.20 - Elevated prostate specific antigen [PSA] Patient Instructions: This note is constructed using voice recognition software. While every effort has been made to ensure accuracy nurse recruiter errors may have been included. Imaging studies, laboratory and physical exam results were discussed and reviewed in detail. No major barriers to patient understanding were identified. An opportunity to ask questions regarding the treatment plan was provided. All questions were answered. The patient expressed understanding and agreement with the above treatment plan. The patient is aware they should contact our office by phone for worsening of their current condition or the appearance of new urologic symptoms. Compliance is encouraged with any medications and followup testing that is ordered. It is a privilege to participate in the urologic care of your patient. If you have any questions or concerns regarding treatment for the above conditions, or other urologic issues, please do not hesitate to contact me. The office telephone contact is [phone]. Sincerely, Dr Doug Macias MD, [facility] - Urology Compassionate Specialist Care for the Genitourinary System Coding Level of Care Code Est Pt Level 3 (73428) Complex EM visit Add On G2211 Diagnoses Elevated PSA R97.20
--- OUTSIDE RECORDS SUMMARY | 2025-05-31 18:57 | XMS_ITS | Clinical Summary ---
[facility] [place] [address] Care Team Providers Care Mining Teacher Name Role Phone Harsha Joyce MD Primary Care Provider [phone] Allergies No known active allergies Medications aspirin [...] Advance Directive 2014 Covid-19 Vaccine (1 - 2024- season) 2025 Influenza (Flu) vaccine (1 o [...] EDT) Glucose 90 65 - 199 mg/dL [facility] Comment:Diabetes: >=200 mg/d L plus symptoms Blood Urea Nitrogen 21(H) 10 - 20 mg/dL [facility] Creatinine 1.18 0.80 - 1.50 mg/dL [facility] Sodium 140 135 - 145 mmol/L [facility] Potassium 3.8 3.5 - 5.0 mmol/L [facility] Comment: Please note: Patients with WBC >100,000 may have falsely elevated Potassium levels. For accurate Potassium quantification in these patients send serum separator tube (gold top) for subsequent determinations. Contact the Clinical Chemistry Laboratory if there are any questions. Chloride 104 98 - 107 mmol/L [facility] Carbon Dioxide 23 22 - 31 mmol/L [facility] Anion Gap 13 5 - 15 mmol/L [facility] Calcium 9.8 8.5 - 10.5 mg/dL [facility] Est Glomerular Filtration Rate 69 >=60 mL/min/1. 73 m [facility] Comment: This patient's estimated GFR [...] Sloan MD CHEMISTRY ORDERABLES Final R esult [facility] [address] [place] [address] from Last 3 Months or Most Recently Relevant to Health Maintenance Insurance [facility] [place] Care Teams Mining Teacher Relationship Specialty Start Date End Date Harsha Joyce MD [facility] [address] [place] [address] PCP - General 06/25/10
--- OUTSIDE RECORDS SUMMARY | 2025-05-31 18:57 | XMS_ITS | Patient Health Record ---
Author Organization [facility] Address [address] [place] [address] Care Team Providers Care Curriculum Consultant Name Role Phone Isiah (RETIRED) Harsha BUENO Primary Care Provide r Unavailable Neto Fam Unavailable [phone] Allergies No Known Allergies Reason For Referral No Information Medications Medication SIG (Take, Route, Frequency, Duration) Notes Start Date End Date Status Omeprazole 20 MG 1 Orally Once a day every morning; Duration: 90 days Activ e Metoprolol Succinate ER 100 MG Oral; Duration: 90 Active Aspirin Low Dose 81 MG Oral; Duration: 90 Active Omeprazole 40 MG 1 capsule Orally Danielle ry morning; Duration: 90 days 12/15/2023 Activ e Immunizations Vaccine Route Administration Date Status Comme [...] Problem Status W/U Status Risk Notes Problem Screening for malignant neoplasm of colon (966294977) Encounter for screening for malignant neoplasm of colon (Z12.11) Active confirmed Problem Dysphagia (86781753) Dysphagia (R13.10) Active confirmed Problem Stricture of esophagus (66603689) Esophageal obstruction (K22.2) Active confirmed Problem Preprocedural examination (068883943484163) Preprocedural examination (Z01.818) Active confirmed Problem Diverticulosis of sigmoid colon (888234386) Diverticulosis of sigmoid colon (K57.30) Active confirmed Problem Benign esophageal stricture (631537940) Benign esophageal stricture (K22.2) Active confirmed Problem Gastroesophageal reflux disease (disorder) (853902183) Chronic GERD (K21.9) Active confirmed Plan Of Treatment Future Test Test Name Order Date COLONOSCOPY 11/28/2011 COLONOSCOPY 03/21/2021 UPPER GI ENDOSCOPY [place] DILATION OF ESOPH 11/13/2023 Insurance Providers Payer Name Payer Address Payer Phone Subscriber Number Group Number Insured Name Patient Relationship to Insured Coverage Start Date Coverage End Date [facility] [address] [place] [address] [id number] ROSMERY LEONE Self - patient is the [...]
== END 2025-05-31 15:03 | disposition home or self-care (01) ==
LOC: HO.HUSH 14:36
PROVIDERS: Visit Provider Urology
DX: R97.20 Elevated prostate specific antigen [PSA] (principal)
CPT/HCPCS: 99213; G2211